=== PATIENT | male | born 1935 | race Caucasian/White ===

== ENCOUNTER 2017-04-13 19:55 | Inpatient (IN) | payer MEDICARE, MEDICAID ==
[~2017-04-13] VITALS: Ht 180.3 cm; Wt 136.0 kg
[~2017-04-13 19:55] MED LIST: ASCO250T8 PO; ATRIN INH; BISA10SU21 PO; BUME1TAB4 PO; CANNABIDIOL PO; DICL100G15 TOP; DOBU500I5; DULR RC; FEBU80TA PO; FLO0.4C PO; FLUT1AER INH; FOLI1TAB16 PO; GABA600T2 PO; LACT10SO PO; LIDO700A5 TOP; METO-539 PO; MORP30TA60 PO; MYC15CR TOP; OSC500T PO; THY60T PO
[2017-04-13 20:59] LABS: BASOPHILS % (AUTO) 0.4 % (0-1); EOSINOPHILS # (AUTO) 0.2 X10'3 (0-0.9); EOSINOPHILS % (AUTO) 2.5 % (0-6); HEMATOCRIT 31.5 % (42.0-52.0); HEMOGLOBIN 10.8 g/dl (14.0-17.9); LYMPHOCYTES # (AUTO) 0.6 X10'3 (1.1-4.8); LYMPHOCYTES % (AUTO) 10.3 % (21-51); MEAN CORPUSCULAR HEMOGLOBIN 32.2 PG (27.0-31.0); MEAN CORPUSCULAR HGB CONC 34.3 % (33.0-36.5); MEAN CORPUSCULAR VOLUME 93.9 FL (78-98); MEAN PLATELET VOLUME 8.9 FL (7.4-10.4); MONOCYTES # (AUTO) 0.4 X10'3 (0-0.9); MONOCYTES % (AUTO) 7.2 % (2-12); NEUTROPHILS # (AUTO) 4.9 X10'3 (1.8-7.7); NEUTROPHILS % (AUTO) 79.6 % (42-75); PLATELET COUNT 128 X10'3 (140-440); RED BLOOD COUNT 3.35 X10'6 (4.70-6.10); RED CELL DISTRIBUTION WIDTH 14.3 % (11.5-14.5); WHITE BLOOD COUNT 6.1 X10'3 (4.5-11.0)
[2017-04-13 21:23] LABS: ALANINE AMINOTRANSFERASE 15 U/L (12-78); ALBUMIN 2.8 G/DL (3.4-5.0); ALBUMIN/GLOBULIN RATIO 0.6 (1.1-1.5); ALKALINE PHOSPHATASE 80 IU/L (46-116); ANION GAP 9 (8-16); ASPARTATE AMINO TRANSFERASE 19 U/L (10-37); BILIRUBIN,TOTAL 0.4 MG/DL (0.1-1.0); BLOOD UREA NITROGEN 53 MG/DL (7-18); BUN/CREATININE RATIO 22.1 (5.4-32.0); CALCIUM 9.1 MG/DL (8.5-10.1); CHLORIDE 97 MMOL/L (99-107); GLUCOSE 112 MG/DL (70-104); MAGNESIUM 2.2 MG/DL (1.5-2.4); SODIUM 134 MMOL/L (135-145); TOTAL CARBON DIOXIDE 27.7 MMOL/L (24-32); TOTAL PROTEIN 7.5 G/DL (6.4-8.2); eGFR 26 ML/MIN
[2017-04-13] MEDS ORDERED: ipratropium 0.5 MG/2.5ML nebule IH ONE (21:55)
[2017-04-13] MEDS ORDERED: morphine 2 MG/ML inj. syringe IV PRN ×2 (22:05)
[2017-04-13] MEDS ORDERED: acetaminophen 650mg rectal suppository RC PRN (22:05)
[2017-04-13] MEDS ORDERED: bisacodyl 10mg suppository rectal RC PRN (22:05)
[2017-04-13] MEDS ORDERED: HYDROmorphone 1 mg/ml syringe IV PRN ×2 (22:05)
[2017-04-13] MEDS ORDERED: magnesium hydroxide 30ml (MOM) UD suspension PO PRN (22:05)
[2017-04-13] MEDS ORDERED: mag hydrox/Alum hydrox/simeth 30ml oral suspension PO PRN (22:05)
[2017-04-13] MEDS ORDERED: HYDROcodone/acetaminophen 5mg/325mg tablet PO PRN (22:05)
[2017-04-13] MEDS ORDERED: diphenhydrAMINE 50 mg/ml inj IV PRN (22:05)
[2017-04-13] MEDS ORDERED: acetaminophen 325mg tablet PO PRN ×2 (22:05)
[2017-04-13] MEDS ORDERED: diphenhydrAMINE 25mg capsule PO PRN (22:05)
[2017-04-13] MEDS ORDERED: metoclopramide 5 mg/ml inj IV PRN (22:05)
[2017-04-13 22:58] LABS: PHOSPHORUS 4.2 MG/DL (2.3-4.5)
[2017-04-13 22:59] LABS: HEMOGLOBIN A1C 5.5 % (4.5-6.2)
[2017-04-14 06:00] LABS: CLARITY,URINE CLEAR (Clear); COLOR,URINE YELLOW (Yellow); GLUCOSE, URINE NEGATIVE (Neg); KETONES,URINE NEGATIVE (Neg); LEUKOCYTE ESTERASE ,URINE MODERATE (Neg); NITRITES, URINE NEGATIVE (Neg); OCCULT BLOOD,URINE MODERATE (Neg); PH,URINE 5.5 (4.8-8.0); PROTEIN,URINE 30 mg/dl (Neg); UROBILINOGEN,URINE 0.2 E.U/dL (0.2-1.0)
[2017-04-14 06:05] LABS: UA COLLECTION TYPE FOLEY CATH
[2017-04-14 06:06] LABS: BACTERIA,URINE 4+ /HPF (Neg); SQUAMOUS EPITHELIAL CELL,UR FEW /LPF (FEW); WBC,URINE 50-100 /HPF (0-4)
[2017-04-14 06:58] LABS: BASOPHILS % (AUTO) 0.6 % (0-1); EOSINOPHILS # (AUTO) 0.1 X10'3 (0-0.9); EOSINOPHILS % (AUTO) 3.5 % (0-6); HEMATOCRIT 28.4 % (42.0-52.0); HEMOGLOBIN 9.9 g/dl (14.0-17.9); LYMPHOCYTES # (AUTO) 0.6 X10'3 (1.1-4.8); LYMPHOCYTES % (AUTO) 15.9 % (21-51); MEAN CORPUSCULAR HEMOGLOBIN 32.3 PG (27.0-31.0); MEAN CORPUSCULAR VOLUME 92.4 FL (78-98); MEAN PLATELET VOLUME 7.9 FL (7.4-10.4); MONOCYTES # (AUTO) 0.4 X10'3 (0-0.9); MONOCYTES % (AUTO) 10.4 % (2-12); NEUTROPHILS # (AUTO) 2.7 X10'3 (1.8-7.7); NEUTROPHILS % (AUTO) 69.6 % (42-75); PLATELET COUNT 104 X10'3 (140-440); RED BLOOD COUNT 3.07 X10'6 (4.70-6.10); RED CELL DISTRIBUTION WIDTH 14.5 % (11.5-14.5); WHITE BLOOD COUNT 3.9 X10'3 (4.5-11.0)
[2017-04-14] MEDS: levoFLOXACIN-Levaquin 250mg/D5 50 ML IV SCH (07:26)
[2017-04-14 07:32] LABS: ALANINE AMINOTRANSFERASE 14 U/L (12-78); ALBUMIN 2.4 G/DL (3.4-5.0); ALBUMIN/GLOBULIN RATIO 0.6 (1.1-1.5); ALKALINE PHOSPHATASE 71 IU/L (46-116); ANION GAP 7 (8-16); ASPARTATE AMINO TRANSFERASE 20 U/L (10-37); BILIRUBIN,TOTAL 0.4 MG/DL (0.1-1.0); BLOOD UREA NITROGEN 52 MG/DL (7-18); BUN/CREATININE RATIO 22.6 (5.4-32.0); CALCIUM 8.8 MG/DL (8.5-10.1); CHLORIDE 99 MMOL/L (99-107); CHOL/HDL RATIO 2.2 (0.00-4.99); CHOLESTEROL 76 MG/DL (0-200); GLUCOSE 96 MG/DL (70-104); HDL CHOLESTEROL 34 MG/DL (35-60); LDL CHOLESTEROL 48 MG/DL (50-100); POTASSIUM 4.1 MMOL/L (3.5-5.1); SODIUM 135 MMOL/L (135-145); TOTAL CARBON DIOXIDE 29.4 MMOL/L (24-32); TOTAL PROTEIN 6.6 G/DL (6.4-8.2); TRIGLYCERIDES 20 MG/DL (20-135); eGFR 27 ML/MIN
[2017-04-14] MEDS ORDERED: enoxaparin 30mg/0.3ml syringe SQ SCH (08:00)
[2017-04-14] MEDS ORDERED: gabapentin 300mg capsule PO SCH (08:00)
[2017-04-14] MEDS ORDERED: bumetanide 1mg tablet PO SCH (08:00)
[2017-04-14] MEDS: enoxaparin 30mg/0.3ml syringe SUBCUT SCH (08:00)
[2017-04-14 09:00] VITALS: BP 95/74
[2017-04-14] MEDS ORDERED: bisacodyl 10mg suppository rectal RC PRN (09:35)
[2017-04-14] MEDS ORDERED: BUMETANIDE IV SCH (10:00)
[2017-04-14 11:00] VITALS: BP 99/66
[2017-04-14] MEDS ORDERED: morphine ER 30mg tablet PO ONE (11:25)
[2017-04-14] MEDS: bumetanide 1mg tablet PO SCH (11:30)
[2017-04-14] MEDS: thyroid, pork 30mg tablet PO SCH (11:32)
[2017-04-14] MEDS: tamsulosin 0.4mg capsule PO SCH (11:33)
[2017-04-14] MEDS: docusate sod 100mg capsule PO SCH ×2 (11:33→20:06)
[2017-04-14] MEDS ORDERED: ipratropium 0.5 MG/2.5ML nebule IH PRN (12:30)
[2017-04-14 17:00] VITALS: BP 93/65
[2017-04-14] MEDS: FEBUXOSTAT PO SCH ×2 (17:41→17:42)
[2017-04-14] MEDS: lactobacillus rhamnosus 10,000 MMU CELLS/CAPSULE PO SCH (18:11)
[2017-04-14 19:00] VITALS: BP 93/67
[2017-04-14] MEDS: DICLOFENAC SODIUM 4 GM TOP SCH (20:00)
[2017-04-14] MEDS ORDERED: furosemide 20 MG/2 ML vial IV SCH (20:00)
[2017-04-14] MEDS: furosemide 40mg/4ml inj IV SCH (20:00)
[2017-04-14] MEDS: morphine ER 30mg tablet PO SCH (20:07)
[2017-04-14] MEDS: gabapentin 100mg capsule PO SCH (20:07)
[2017-04-14] MEDS: lactulose 20gm/30ml cup PO SCH (20:07)
[2017-04-14] MEDS: ondansetron/PF 4mg/2ml inj IV PRN (20:16)
[2017-04-14] MEDS ORDERED: tamsulosin 0.4mg capsule PO SCH (21:00)
[2017-04-14 23:00] VITALS: BP 94/65
[2017-04-15 03:00] VITALS: BP 92/68
[2017-04-15] MEDS: sennosides/docusate sodium tablet PO SCH ×3 (03:34→20:45)
[2017-04-15] MEDS: ondansetron/PF 4mg/2ml inj IV PRN ×2 (04:06→19:37)
[2017-04-15 06:00] VITALS: BP 98/66
[2017-04-15 07:10] LABS: BASOPHILS % (AUTO) 0.6 % (0-1); EOSINOPHILS # (AUTO) 0.1 X10'3 (0-0.9); EOSINOPHILS % (AUTO) 3.2 % (0-6); HEMATOCRIT 31.5 % (42.0-52.0); HEMOGLOBIN 10.8 g/dl (14.0-17.9); LYMPHOCYTES # (AUTO) 0.7 X10'3 (1.1-4.8); LYMPHOCYTES % (AUTO) 16.7 % (21-51); MEAN CORPUSCULAR HEMOGLOBIN 32.2 PG (27.0-31.0); MEAN CORPUSCULAR HGB CONC 34.3 % (33.0-36.5); MEAN PLATELET VOLUME 8.9 FL (7.4-10.4); MONOCYTES # (AUTO) 0.3 X10'3 (0-0.9); MONOCYTES % (AUTO) 8.1 % (2-12); NEUTROPHILS # (AUTO) 2.9 X10'3 (1.8-7.7); NEUTROPHILS % (AUTO) 71.4 % (42-75); PLATELET COUNT 126 X10'3 (140-440); RED BLOOD COUNT 3.35 X10'6 (4.70-6.10); RED CELL DISTRIBUTION WIDTH 14.4 % (11.5-14.5); WHITE BLOOD COUNT 4.1 X10'3 (4.5-11.0)
[2017-04-15 07:44] LABS: ALANINE AMINOTRANSFERASE 15 U/L (12-78); ALBUMIN 2.6 G/DL (3.4-5.0); ALBUMIN/GLOBULIN RATIO 0.6 (1.1-1.5); ALKALINE PHOSPHATASE 77 IU/L (46-116); ANION GAP 8 (8-16); ASPARTATE AMINO TRANSFERASE 19 U/L (10-37); BILIRUBIN,TOTAL 0.5 MG/DL (0.1-1.0); BLOOD UREA NITROGEN 51 MG/DL (7-18); BUN/CREATININE RATIO 23.2 (5.4-32.0); CALCIUM 8.7 MG/DL (8.5-10.1); CHLORIDE 97 MMOL/L (99-107); GLUCOSE 82 MG/DL (70-104); SODIUM 135 MMOL/L (135-145); TOTAL CARBON DIOXIDE 29.7 MMOL/L (24-32); TOTAL PROTEIN 7.3 G/DL (6.4-8.2); eGFR 29 ML/MIN
[2017-04-15] MEDS ORDERED: folic acid 1mg tablet PO SCH (08:00)
[2017-04-15] MEDS: DICLOFENAC SODIUM 4 GM TOP SCH ×2 (08:00→20:00)
[2017-04-15] MEDS: enoxaparin 30mg/0.3ml syringe SUBCUT SCH (08:00)
[2017-04-15] MEDS: neomy sulf/bacitrac zn/polymixin b oint 14.2 gm tube TP SCH (08:00)
[2017-04-15] MEDS: LIDOcaine 5% patch TP SCH (08:00)
[2017-04-15] MEDS: FEBUXOSTAT PO SCH (08:00)
[2017-04-15] MEDS: lactobacillus rhamnosus 10,000 MMU CELLS/CAPSULE PO SCH ×2 (08:41→17:21)
[2017-04-15] MEDS: tamsulosin 0.4mg capsule PO SCH (08:41)
[2017-04-15] MEDS: docusate sod 100mg capsule PO SCH ×2 (08:41→20:45)
[2017-04-15] MEDS: morphine ER 30mg tablet PO SCH ×3 (08:42→20:45)
[2017-04-15] MEDS: metoprolol succinate 25mg (24-HOUR) SR. Tablet PO SCH (08:42)
[2017-04-15] MEDS: ascorbic acid 500mg tablet PO SCH (08:44)
[2017-04-15] MEDS: gabapentin 100mg capsule PO SCH ×3 (08:44→20:45)
[2017-04-15] MEDS: folic acid 1mg tablet PO SCH (08:44)
[2017-04-15] MEDS: thyroid, pork 30mg tablet PO SCH (08:46)
[2017-04-15] MEDS: lactulose 20gm/30ml cup PO SCH ×2 (08:47→20:45)
[2017-04-15] MEDS: furosemide 40mg/4ml inj IV SCH ×2 (08:48→20:45)
[2017-04-15] MEDS: levoFLOXACIN-Levaquin 250mg/D5 50 ML IV SCH (08:57)
[2017-04-15] MEDS: nystatin 15 GM powder TP SCH ×2 (09:00→20:44)
[2017-04-15] MEDS ORDERED: bisacodyl 10mg suppository rectal RC ONE (10:30)
[2017-04-15 11:00] VITALS: BP 91/53
[2017-04-15] MEDS: HYDROcodone/acetaminophen 10/325mg tab PO PRN (11:08)
[2017-04-15 15:00] VITALS: BP 97/54
[2017-04-15] MEDS ORDERED: mineral oil 133ml enema RC PRN (18:20)
[2017-04-15 19:00] VITALS: BP 104/75
[2017-04-15 23:00] VITALS: BP 96/64
[2017-04-16] VITALS (7 sets, daily range): BP systolic 83–97; BP diastolic 39–66
[2017-04-16] MEDS: HYDROcodone/acetaminophen 10/325mg tab PO PRN (05:18)
[2017-04-16 06:19] LABS: BASOPHILS % (AUTO) 0.6 % (0-1); EOSINOPHILS # (AUTO) 0.1 X10'3 (0-0.9); EOSINOPHILS % (AUTO) 3.2 % (0-6); HEMATOCRIT 30.8 % (42.0-52.0); HEMOGLOBIN 10.8 g/dl (14.0-17.9); LYMPHOCYTES # (AUTO) 0.7 X10'3 (1.1-4.8); LYMPHOCYTES % (AUTO) 16.5 % (21-51); MEAN CORPUSCULAR HEMOGLOBIN 32.4 PG (27.0-31.0); MEAN CORPUSCULAR VOLUME 92.7 FL (78-98); MEAN PLATELET VOLUME 8.5 FL (7.4-10.4); MONOCYTES # (AUTO) 0.4 X10'3 (0-0.9); NEUTROPHILS % (AUTO) 70.7 % (42-75); PLATELET COUNT 123 X10'3 (140-440); RED BLOOD COUNT 3.33 X10'6 (4.70-6.10); RED CELL DISTRIBUTION WIDTH 14.4 % (11.5-14.5); WHITE BLOOD COUNT 4.2 X10'3 (4.5-11.0)
[2017-04-16 06:54] LABS: ALANINE AMINOTRANSFERASE 15 U/L (12-78); ALBUMIN 2.6 G/DL (3.4-5.0); ALBUMIN/GLOBULIN RATIO 0.6 (1.1-1.5); ALKALINE PHOSPHATASE 78 IU/L (46-116); ANION GAP 7 (8-16); ASPARTATE AMINO TRANSFERASE 18 U/L (10-37); BILIRUBIN,TOTAL 0.5 MG/DL (0.1-1.0); BLOOD UREA NITROGEN 50 MG/DL (7-18); BUN/CREATININE RATIO 20.8 (5.4-32.0); CALCIUM 8.8 MG/DL (8.5-10.1); CHLORIDE 97 MMOL/L (99-107); GLUCOSE 86 MG/DL (70-104); POTASSIUM 3.8 MMOL/L (3.5-5.1); SODIUM 132 MMOL/L (135-145); TOTAL CARBON DIOXIDE 28.1 MMOL/L (24-32); TOTAL PROTEIN 7.1 G/DL (6.4-8.2); eGFR 26 ML/MIN
[2017-04-16] MEDS: gabapentin 100mg capsule PO SCH ×3 (07:58→21:07)
[2017-04-16] MEDS: thyroid, pork 30mg tablet PO SCH (07:58)
[2017-04-16] MEDS: metoprolol succinate 25mg (24-HOUR) SR. Tablet PO SCH (07:59)
[2017-04-16] MEDS: bumetanide 1mg tablet PO SCH (07:59)
[2017-04-16] MEDS: DICLOFENAC SODIUM 4 GM TOP SCH (08:00)
[2017-04-16] MEDS: folic acid 1mg tablet PO SCH (08:00)
[2017-04-16] MEDS: ascorbic acid 500mg tablet PO SCH (08:00)
[2017-04-16] MEDS: morphine ER 30mg tablet PO SCH ×3 (08:00→21:07)
[2017-04-16] MEDS: sennosides/docusate sodium tablet PO SCH ×2 (08:00→19:26)
[2017-04-16] MEDS: furosemide 40mg/4ml inj IV SCH ×2 (08:00→19:26)
[2017-04-16] MEDS: enoxaparin 30mg/0.3ml syringe SUBCUT SCH ×2 (08:00→08:01)
[2017-04-16] MEDS: docusate sod 100mg capsule PO SCH ×2 (08:00→19:26)
[2017-04-16] MEDS: tamsulosin 0.4mg capsule PO SCH (08:00)
[2017-04-16] MEDS: lactulose 20gm/30ml cup PO SCH ×2 (08:00→19:27)
[2017-04-16] MEDS: nystatin 15 GM powder TP SCH ×2 (08:00→19:26)
[2017-04-16] MEDS: lactobacillus rhamnosus 10,000 MMU CELLS/CAPSULE PO SCH ×2 (08:00→17:18)
[2017-04-16] MEDS: neomy sulf/bacitrac zn/polymixin b oint 14.2 gm tube TP SCH (08:01)
[2017-04-16] MEDS: LIDOcaine 5% patch TP SCH (08:03)
[2017-04-16] MEDS: FEBUXOSTAT PO SCH (11:16)
[2017-04-16] MEDS: levoFLOXACIN 250mg tablet PO SCH (11:16)
[2017-04-16] MEDS: DOBUTamine-DoBUTrex 500mg/D5W 250 ML IV SCH (16:30)
[2017-04-16] MEDS: ZINC TP PRN (17:18)
[2017-04-16] MEDS: DIPHENHYDRAMINE TP PRN (17:18)
[2017-04-16] MEDS: oxybutynin 5mg tablet PO SCH ×2 (17:18→19:26)
[2017-04-16] MEDS ORDERED: meropenem inj 1 GM in normal saline 100ml IV soln 100 ML IV SCH (20:00)
[2017-04-17] VITALS (12 sets, daily range): BP systolic 81–107; BP diastolic 54–67
[2017-04-17] MEDS: HYDROcodone/acetaminophen 10/325mg tab PO PRN (02:21)
[2017-04-17 06:13] LABS: BASOPHILS % (AUTO) 0.4 % (0-1); EOSINOPHILS # (AUTO) 0.1 X10'3 (0-0.9); EOSINOPHILS % (AUTO) 3.2 % (0-6); HEMOGLOBIN 10.4 g/dl (14.0-17.9); LYMPHOCYTES # (AUTO) 0.6 X10'3 (1.1-4.8); LYMPHOCYTES % (AUTO) 16.3 % (21-51); MEAN CORPUSCULAR HEMOGLOBIN 32.1 PG (27.0-31.0); MEAN CORPUSCULAR HGB CONC 34.5 % (33.0-36.5); MEAN CORPUSCULAR VOLUME 93.2 FL (78-98); MEAN PLATELET VOLUME 8.7 FL (7.4-10.4); MONOCYTES # (AUTO) 0.3 X10'3 (0-0.9); MONOCYTES % (AUTO) 9.1 % (2-12); NEUTROPHILS # (AUTO) 2.6 X10'3 (1.8-7.7); PLATELET COUNT 110 X10'3 (140-440); RED BLOOD COUNT 3.22 X10'6 (4.70-6.10); RED CELL DISTRIBUTION WIDTH 14.3 % (11.5-14.5); WHITE BLOOD COUNT 3.7 X10'3 (4.5-11.0)
[2017-04-17 06:50] LABS: ALANINE AMINOTRANSFERASE 15 U/L (12-78); ALBUMIN 2.3 G/DL (3.4-5.0); ALBUMIN/GLOBULIN RATIO 0.5 (1.1-1.5); ALKALINE PHOSPHATASE 69 IU/L (46-116); ANION GAP 4 (8-16); ASPARTATE AMINO TRANSFERASE 18 U/L (10-37); BILIRUBIN,TOTAL 0.5 MG/DL (0.1-1.0); BLOOD UREA NITROGEN 49 MG/DL (7-18); BUN/CREATININE RATIO 21.3 (5.4-32.0); CALCIUM 8.7 MG/DL (8.5-10.1); CHLORIDE 99 MMOL/L (99-107); GLUCOSE 86 MG/DL (70-104); SODIUM 132 MMOL/L (135-145); TOTAL PROTEIN 6.5 G/DL (6.4-8.2); eGFR 27 ML/MIN
[2017-04-17] MEDS: neomy sulf/bacitrac zn/polymixin b oint 14.2 gm tube TP SCH (08:00)
[2017-04-17] MEDS: furosemide 40mg/4ml inj IV SCH ×2 (08:00→21:27)
[2017-04-17] MEDS: metoprolol succinate 25mg (24-HOUR) SR. Tablet PO SCH (08:00)
[2017-04-17] MEDS: LIDOcaine 5% patch TP SCH (08:00)
[2017-04-17] MEDS: bumetanide 1mg tablet PO SCH (08:00)
[2017-04-17] MEDS: enoxaparin 30mg/0.3ml syringe SUBCUT SCH (08:00)
[2017-04-17] MEDS: cyanocobalamin 500mcg tablet PO SCH (09:03)
[2017-04-17] MEDS: docusate sod 100mg capsule PO SCH ×2 (09:04→21:27)
[2017-04-17] MEDS: folic acid 1mg tablet PO SCH (09:04)
[2017-04-17] MEDS: FEBUXOSTAT PO SCH (09:04)
[2017-04-17] MEDS: gabapentin 100mg capsule PO SCH ×3 (09:04→21:28)
[2017-04-17] MEDS: lactobacillus rhamnosus 10,000 MMU CELLS/CAPSULE PO SCH ×2 (09:04→17:04)
[2017-04-17] MEDS: sennosides/docusate sodium tablet PO SCH ×2 (09:04→21:27)
[2017-04-17] MEDS: thyroid, pork 30mg tablet PO SCH (09:05)
[2017-04-17] MEDS: morphine ER 30mg tablet PO SCH ×3 (09:05→21:28)
[2017-04-17] MEDS: oxybutynin 5mg tablet PO SCH ×2 (09:06→21:27)
[2017-04-17] MEDS: ascorbic acid 500mg tablet PO SCH (09:06)
[2017-04-17] MEDS: tamsulosin 0.4mg capsule PO SCH (09:06)
[2017-04-17] MEDS: lactulose 20gm/30ml cup PO SCH ×2 (09:10→21:27)
[2017-04-17] MEDS: nystatin 15 GM powder TP SCH ×2 (09:12→20:00)
[2017-04-17] MEDS: levoFLOXACIN 250mg tablet PO SCH (11:18)
[2017-04-17] MEDS: DOBUTamine-DoBUTrex 500mg/D5W 250 ML IV SCH ×2 (14:46→16:06)
[2017-04-17] MEDS: aztreonam inj. 500 MG in normal saline 100ml IV soln 100 ML IV SCH (15:04)
[2017-04-17] MEDS ORDERED: aztreonam inj. 1,000 MG in normal saline 100ml IV soln 100 ML IV SCH (16:00)
[2017-04-18] VITALS (11 sets, daily range): BP systolic 85–107; BP diastolic 40–55
[2017-04-18 06:16] LABS: BASOPHILS % (AUTO) 0.4 % (0-1); EOSINOPHILS # (AUTO) 0.1 X10'3 (0-0.9); EOSINOPHILS % (AUTO) 2.5 % (0-6); HEMOGLOBIN 10.1 g/dl (14.0-17.9); LYMPHOCYTES # (AUTO) 0.5 X10'3 (1.1-4.8); LYMPHOCYTES % (AUTO) 14.3 % (21-51); MEAN CORPUSCULAR HEMOGLOBIN 32.1 PG (27.0-31.0); MEAN CORPUSCULAR HGB CONC 33.7 % (33.0-36.5); MEAN CORPUSCULAR VOLUME 95.3 FL (78-98); MEAN PLATELET VOLUME 8.4 FL (7.4-10.4); MONOCYTES # (AUTO) 0.2 X10'3 (0-0.9); MONOCYTES % (AUTO) 6.6 % (2-12); NEUTROPHILS # (AUTO) 2.8 X10'3 (1.8-7.7); NEUTROPHILS % (AUTO) 76.2 % (42-75); PLATELET COUNT 101 X10'3 (140-440); RED BLOOD COUNT 3.15 X10'6 (4.70-6.10); WHITE BLOOD COUNT 3.6 X10'3 (4.5-11.0)
[2017-04-18 06:47] LABS: ALANINE AMINOTRANSFERASE 9 U/L (12-78); ALBUMIN 2.3 G/DL (3.4-5.0); ALBUMIN/GLOBULIN RATIO 0.5 (1.1-1.5); ALKALINE PHOSPHATASE 77 IU/L (46-116); ANION GAP 7 (8-16); ASPARTATE AMINO TRANSFERASE 14 U/L (10-37); BILIRUBIN,TOTAL 0.7 MG/DL (0.1-1.0); BLOOD UREA NITROGEN 47 MG/DL (7-18); BUN/CREATININE RATIO 22.4 (5.4-32.0); CALCIUM 8.7 MG/DL (8.5-10.1); CHLORIDE 97 MMOL/L (99-107); GLUCOSE 149 MG/DL (70-104); SODIUM 132 MMOL/L (135-145); TOTAL PROTEIN 6.6 G/DL (6.4-8.2); eGFR 30 ML/MIN
[2017-04-18] MEDS: LIDOcaine 5% patch TP SCH (08:00)
[2017-04-18] MEDS: metoprolol succinate 25mg (24-HOUR) SR. Tablet PO SCH (08:00)
[2017-04-18] MEDS: neomy sulf/bacitrac zn/polymixin b oint 14.2 gm tube TP SCH (08:00)
[2017-04-18] MEDS: bumetanide 1mg tablet PO SCH (08:00)
[2017-04-18] MEDS: enoxaparin 30mg/0.3ml syringe SUBCUT SCH (08:00)
[2017-04-18] MEDS: furosemide 40mg/4ml inj IV SCH ×2 (08:00→19:54)
[2017-04-18] MEDS: cyanocobalamin 500mcg tablet PO SCH (08:22)
[2017-04-18] MEDS: thyroid, pork 30mg tablet PO SCH (08:23)
[2017-04-18] MEDS: tamsulosin 0.4mg capsule PO SCH (08:23)
[2017-04-18] MEDS: gabapentin 100mg capsule PO SCH ×3 (08:23→21:48)
[2017-04-18] MEDS: oxybutynin 5mg tablet PO SCH ×2 (08:23→19:53)
[2017-04-18] MEDS: morphine ER 30mg tablet PO SCH ×3 (08:23→19:52)
[2017-04-18] MEDS: docusate sod 100mg capsule PO SCH ×2 (08:24→19:53)
[2017-04-18] MEDS: lactobacillus rhamnosus 10,000 MMU CELLS/CAPSULE PO SCH ×2 (08:24→16:36)
[2017-04-18] MEDS: levoFLOXACIN 750MG TABLET PO SCH (08:24)
[2017-04-18] MEDS: sennosides/docusate sodium tablet PO SCH ×2 (08:24→19:53)
[2017-04-18] MEDS: folic acid 1mg tablet PO SCH (08:24)
[2017-04-18] MEDS: ascorbic acid 500mg tablet PO SCH (08:25)
[2017-04-18] MEDS: FEBUXOSTAT PO SCH (08:25)
[2017-04-18] MEDS: DOBUTamine-DoBUTrex 500mg/D5W 250 ML IV SCH ×2 (08:27→21:50)
[2017-04-18] MEDS: lactulose 20gm/30ml cup PO SCH ×2 (08:27→19:54)
[2017-04-18] MEDS: nystatin 15 GM powder TP SCH ×2 (08:28→20:00)
[2017-04-18] MEDS: HYDROcodone/acetaminophen 10/325mg tab PO PRN ×2 (09:32→23:31)
[2017-04-18] MEDS: aztreonam inj. 500 MG in normal saline 100ml IV soln 100 ML IV SCH ×5 (10:36→23:04)
[2017-04-18] MEDS: DIPHENHYDRAMINE TP PRN (10:38)
[2017-04-18] MEDS: ZINC TP PRN (10:38)
[2017-04-18] MEDS ORDERED: HYDROmorphone 2mg/ml vial IV PRN ×2 (15:59)
[2017-04-18] MEDS: nystatin 500,000 unit/5ML UD oral suspension PO SCH ×2 (19:54→21:48)
[2017-04-19] VITALS (14 sets, daily range): BP systolic 87–117; BP diastolic 39–67
[2017-04-19] MEDS: DOBUTamine-DoBUTrex 500mg/D5W 250 ML IV SCH ×2 (00:35→10:54)
[2017-04-19] MEDS: HYDROcodone/acetaminophen 10/325mg tab PO PRN ×2 (04:31→21:40)
[2017-04-19] MEDS: bumetanide 1mg tablet PO SCH (08:00)
[2017-04-19] MEDS: LIDOcaine 5% patch TP SCH (08:00)
[2017-04-19] MEDS: metoprolol succinate 25mg (24-HOUR) SR. Tablet PO SCH (08:00)
[2017-04-19] MEDS: furosemide 40mg/4ml inj IV SCH ×2 (08:00→21:41)
[2017-04-19] MEDS: enoxaparin 30mg/0.3ml syringe SUBCUT SCH (08:00)
[2017-04-19] MEDS: thyroid, pork 30mg tablet PO SCH (08:18)
[2017-04-19] MEDS: docusate sod 100mg capsule PO SCH ×2 (08:18→21:39)
[2017-04-19] MEDS: lactulose 20gm/30ml cup PO SCH ×2 (08:18→21:40)
[2017-04-19] MEDS: folic acid 1mg tablet PO SCH (08:18)
[2017-04-19] MEDS: cyanocobalamin 500mcg tablet PO SCH (08:18)
[2017-04-19] MEDS: sennosides/docusate sodium tablet PO SCH ×2 (08:19→21:39)
[2017-04-19] MEDS: oxybutynin 5mg tablet PO SCH ×2 (08:19→21:39)
[2017-04-19] MEDS: tamsulosin 0.4mg capsule PO SCH (08:19)
[2017-04-19] MEDS: morphine ER 30mg tablet PO SCH ×3 (08:19→21:40)
[2017-04-19] MEDS: gabapentin 100mg capsule PO SCH ×3 (08:19→21:40)
[2017-04-19] MEDS: lactobacillus rhamnosus 10,000 MMU CELLS/CAPSULE PO SCH ×2 (08:19→16:34)
[2017-04-19] MEDS: FEBUXOSTAT PO SCH (08:20)
[2017-04-19] MEDS: ascorbic acid 500mg tablet PO SCH (08:20)
[2017-04-19] MEDS: nystatin 500,000 unit/5ML UD oral suspension PO SCH ×3 (08:21→21:39)
[2017-04-19] MEDS: aztreonam inj. 500 MG in normal saline 100ml IV soln 100 ML IV SCH ×2 (08:21→16:34)
[2017-04-19] MEDS: nystatin 15 GM powder TP SCH ×2 (08:22→21:42)
[2017-04-19] MEDS: neomy sulf/bacitrac zn/polymixin b oint 14.2 gm tube TP SCH (08:22)
[2017-04-19 08:59] LABS: BASOPHILS % (AUTO) 0.4 % (0-1); EOSINOPHILS # (AUTO) 0.1 X10'3 (0-0.9); EOSINOPHILS % (AUTO) 2.8 % (0-6); HEMATOCRIT 29.1 % (42.0-52.0); HEMOGLOBIN 9.8 g/dl (14.0-17.9); LYMPHOCYTES # (AUTO) 0.4 X10'3 (1.1-4.8); LYMPHOCYTES % (AUTO) 10.9 % (21-51); MEAN CORPUSCULAR HEMOGLOBIN 31.8 PG (27.0-31.0); MEAN CORPUSCULAR HGB CONC 33.7 % (33.0-36.5); MEAN CORPUSCULAR VOLUME 94.4 FL (78-98); MEAN PLATELET VOLUME 8.1 FL (7.4-10.4); MONOCYTES # (AUTO) 0.3 X10'3 (0-0.9); MONOCYTES % (AUTO) 6.9 % (2-12); NEUTROPHILS # (AUTO) 3.1 X10'3 (1.8-7.7); PLATELET COUNT 100 X10'3 (140-440); RED BLOOD COUNT 3.08 X10'6 (4.70-6.10); RED CELL DISTRIBUTION WIDTH 14.1 % (11.5-14.5); WHITE BLOOD COUNT 3.9 X10'3 (4.5-11.0)
[2017-04-19 09:38] LABS: ALANINE AMINOTRANSFERASE 9 U/L (12-78); ALBUMIN 2.3 G/DL (3.4-5.0); ALBUMIN/GLOBULIN RATIO 0.5 (1.1-1.5); ALKALINE PHOSPHATASE 76 IU/L (46-116); ANION GAP 7 (8-16); ASPARTATE AMINO TRANSFERASE 22 U/L (10-37); BILIRUBIN,TOTAL 0.7 MG/DL (0.1-1.0); BLOOD UREA NITROGEN 42 MG/DL (7-18); CALCIUM 8.8 MG/DL (8.5-10.1); CHLORIDE 99 MMOL/L (99-107); GLUCOSE 112 MG/DL (70-104); POTASSIUM 4.2 MMOL/L (3.5-5.1); SODIUM 135 MMOL/L (135-145); TOTAL CARBON DIOXIDE 28.6 MMOL/L (24-32); TOTAL PROTEIN 6.6 G/DL (6.4-8.2); eGFR 32 ML/MIN
[2017-04-19] MEDS: temazepam 15mg capsule PO PRN (21:41)
[2017-04-20] VITALS (11 sets, daily range): BP systolic 90–111; BP diastolic 49–85
[2017-04-20] MEDS: DOBUTamine-DoBUTrex 500mg/D5W 250 ML IV SCH ×3 (00:40→12:30)
[2017-04-20] MEDS: aztreonam inj. 500 MG in normal saline 100ml IV soln 100 ML IV SCH ×3 (00:40→16:53)
[2017-04-20 04:56] LABS: BASOPHILS % (AUTO) 0.4 % (0-1); EOSINOPHILS # (AUTO) 0.1 X10'3 (0-0.9); HEMOGLOBIN 9.6 g/dl (14.0-17.9); LYMPHOCYTES # (AUTO) 0.5 X10'3 (1.1-4.8); LYMPHOCYTES % (AUTO) 15.5 % (21-51); MEAN CORPUSCULAR HGB CONC 34.1 % (33.0-36.5); MEAN CORPUSCULAR VOLUME 93.8 FL (78-98); MEAN PLATELET VOLUME 8.3 FL (7.4-10.4); MONOCYTES # (AUTO) 0.3 X10'3 (0-0.9); MONOCYTES % (AUTO) 8.8 % (2-12); NEUTROPHILS # (AUTO) 2.3 X10'3 (1.8-7.7); NEUTROPHILS % (AUTO) 71.3 % (42-75); PLATELET COUNT 99 X10'3 (140-440); RED BLOOD COUNT 2.99 X10'6 (4.70-6.10); RED CELL DISTRIBUTION WIDTH 14.3 % (11.5-14.5); WHITE BLOOD COUNT 3.3 X10'3 (4.5-11.0)
[2017-04-20 05:15] LABS: ALANINE AMINOTRANSFERASE 13 U/L (12-78); ALBUMIN 2.3 G/DL (3.4-5.0); ALBUMIN/GLOBULIN RATIO 0.6 (1.1-1.5); ALKALINE PHOSPHATASE 72 IU/L (46-116); ANION GAP 8 (8-16); ASPARTATE AMINO TRANSFERASE 21 U/L (10-37); BILIRUBIN,TOTAL 0.7 MG/DL (0.1-1.0); BLOOD UREA NITROGEN 41 MG/DL (7-18); BUN/CREATININE RATIO 20.5 (5.4-32.0); CALCIUM 8.7 MG/DL (8.5-10.1); CHLORIDE 100 MMOL/L (99-107); GLUCOSE 80 MG/DL (70-104); SODIUM 137 MMOL/L (135-145); TOTAL CARBON DIOXIDE 28.9 MMOL/L (24-32); TOTAL PROTEIN 6.4 G/DL (6.4-8.2); eGFR 32 ML/MIN
[2017-04-20] MEDS: LIDOcaine 5% patch TP SCH (08:00)
[2017-04-20] MEDS: enoxaparin 30mg/0.3ml syringe SUBCUT SCH (08:00)
[2017-04-20] MEDS ORDERED: methylnaltrexone br 12mg/0.6ml inj***SubQ only SQ SCH (08:00)
[2017-04-20] MEDS: cyanocobalamin 500mcg tablet PO SCH (08:49)
[2017-04-20] MEDS: bumetanide 1mg tablet PO SCH (08:49)
[2017-04-20] MEDS: tamsulosin 0.4mg capsule PO SCH (08:49)
[2017-04-20] MEDS: gabapentin 100mg capsule PO SCH ×3 (08:50→20:32)
[2017-04-20] MEDS: sennosides/docusate sodium tablet PO SCH ×2 (08:50→20:32)
[2017-04-20] MEDS: oxybutynin 5mg tablet PO SCH ×2 (08:50→20:32)
[2017-04-20] MEDS: furosemide 40mg/4ml inj IV SCH (08:50)
[2017-04-20] MEDS: FEBUXOSTAT PO SCH (08:50)
[2017-04-20] MEDS: docusate sod 100mg capsule PO SCH ×2 (08:50→20:32)
[2017-04-20] MEDS: folic acid 1mg tablet PO SCH (08:50)
[2017-04-20] MEDS: metoprolol succinate 25mg (24-HOUR) SR. Tablet PO SCH (08:50)
[2017-04-20] MEDS: lactobacillus rhamnosus 10,000 MMU CELLS/CAPSULE PO SCH ×2 (08:51→16:52)
[2017-04-20] MEDS: morphine ER 30mg tablet PO SCH ×3 (08:51→20:32)
[2017-04-20] MEDS: ascorbic acid 500mg tablet PO SCH (08:51)
[2017-04-20] MEDS: lactulose 20gm/30ml cup PO SCH ×2 (08:51→20:31)
[2017-04-20] MEDS: thyroid, pork 30mg tablet PO SCH (08:53)
[2017-04-20] MEDS: levoFLOXACIN 750MG TABLET PO SCH (08:54)
[2017-04-20] MEDS: nystatin 15 GM powder TP SCH ×2 (08:55→20:37)
[2017-04-20] MEDS: nystatin 500,000 unit/5ML UD oral suspension PO SCH ×3 (08:57→20:32)
[2017-04-20] MEDS: neomy sulf/bacitrac zn/polymixin b oint 14.2 gm tube TP SCH (08:58)
[2017-04-20] MEDS: lisinopril 2.5mg tablet PO SCH (16:51)
[2017-04-20] MEDS: furosemide 20 MG/2 ML vial IV SCH (16:52)
[2017-04-20] MEDS: digoxin 125mcg (0.125mg) tablet PO SCH (16:53)
[2017-04-21] VITALS (11 sets, daily range): BP systolic 85–105; BP diastolic 37–63
[2017-04-21] MEDS: temazepam 15mg capsule PO PRN (00:27)
[2017-04-21] MEDS: furosemide 20 MG/2 ML vial IV SCH ×3 (00:27→20:00)
[2017-04-21] MEDS: aztreonam inj. 500 MG in normal saline 100ml IV soln 100 ML IV SCH ×3 (00:27→17:05)
[2017-04-21 04:45] LABS: BASOPHILS % (AUTO) 0.3 % (0-1); EOSINOPHILS # (AUTO) 0.2 X10'3 (0-0.9); EOSINOPHILS % (AUTO) 5.2 % (0-6); HEMATOCRIT 28.9 % (42.0-52.0); HEMOGLOBIN 9.7 g/dl (14.0-17.9); LYMPHOCYTES # (AUTO) 0.5 X10'3 (1.1-4.8); LYMPHOCYTES % (AUTO) 15.7 % (21-51); MEAN CORPUSCULAR HEMOGLOBIN 31.7 PG (27.0-31.0); MEAN CORPUSCULAR HGB CONC 33.5 % (33.0-36.5); MEAN CORPUSCULAR VOLUME 94.6 FL (78-98); MEAN PLATELET VOLUME 7.8 FL (7.4-10.4); MONOCYTES # (AUTO) 0.3 X10'3 (0-0.9); MONOCYTES % (AUTO) 9.2 % (2-12); NEUTROPHILS # (AUTO) 2.2 X10'3 (1.8-7.7); NEUTROPHILS % (AUTO) 69.6 % (42-75); PLATELET COUNT 100 X10'3 (140-440); RED BLOOD COUNT 3.06 X10'6 (4.70-6.10); RED CELL DISTRIBUTION WIDTH 14.3 % (11.5-14.5); WHITE BLOOD COUNT 3.1 X10'3 (4.5-11.0)
[2017-04-21 05:03] LABS: ALANINE AMINOTRANSFERASE 9 U/L (12-78); ALBUMIN 2.1 G/DL (3.4-5.0); ALBUMIN/GLOBULIN RATIO 0.5 (1.1-1.5); ALKALINE PHOSPHATASE 66 IU/L (46-116); ANION GAP 6 (8-16); ASPARTATE AMINO TRANSFERASE 19 U/L (10-37); BILIRUBIN,TOTAL 0.7 MG/DL (0.1-1.0); BLOOD UREA NITROGEN 36 MG/DL (7-18); CALCIUM 8.6 MG/DL (8.5-10.1); CHLORIDE 102 MMOL/L (99-107); GLUCOSE 82 MG/DL (70-104); POTASSIUM 3.4 MMOL/L (3.5-5.1); SODIUM 138 MMOL/L (135-145); TOTAL CARBON DIOXIDE 30.4 MMOL/L (24-32); TOTAL PROTEIN 6.1 G/DL (6.4-8.2); eGFR 36 ML/MIN
[2017-04-21] MEDS: cyanocobalamin 500mcg tablet PO SCH (08:00)
[2017-04-21] MEDS: bumetanide 1mg tablet PO SCH (08:00)
[2017-04-21] MEDS: neomy sulf/bacitrac zn/polymixin b oint 14.2 gm tube TP SCH (08:00)
[2017-04-21] MEDS: metoprolol succinate 25mg (24-HOUR) SR. Tablet PO SCH ×2 (08:00→20:00)
[2017-04-21] MEDS: lisinopril 2.5mg tablet PO SCH (08:00)
[2017-04-21] MEDS: docusate sod 100mg capsule PO SCH ×2 (08:00→20:49)
[2017-04-21] MEDS: DOBUTamine-DoBUTrex 500mg/D5W 250 ML IV SCH (09:35)
[2017-04-21] MEDS: tamsulosin 0.4mg capsule PO SCH (09:36)
[2017-04-21] MEDS: sennosides/docusate sodium tablet PO SCH ×2 (09:36→20:50)
[2017-04-21] MEDS: ascorbic acid 500mg tablet PO SCH (09:36)
[2017-04-21] MEDS: thyroid, pork 30mg tablet PO SCH (09:37)
[2017-04-21] MEDS: digoxin 125mcg (0.125mg) tablet PO SCH (09:37)
[2017-04-21] MEDS: lactobacillus rhamnosus 10,000 MMU CELLS/CAPSULE PO SCH ×2 (09:37→17:05)
[2017-04-21] MEDS: morphine ER 30mg tablet PO SCH ×3 (09:37→20:50)
[2017-04-21] MEDS: oxybutynin 5mg tablet PO SCH ×2 (09:37→20:50)
[2017-04-21] MEDS: FEBUXOSTAT PO SCH (09:38)
[2017-04-21] MEDS: enoxaparin 30mg/0.3ml syringe SUBCUT SCH (09:38)
[2017-04-21] MEDS: lactulose 20gm/30ml cup PO SCH ×2 (09:38→20:49)
[2017-04-21] MEDS: gabapentin 100mg capsule PO SCH ×3 (09:38→20:49)
[2017-04-21] MEDS: nystatin 500,000 unit/5ML UD oral suspension PO SCH ×3 (09:38→20:49)
[2017-04-21] MEDS: folic acid 1mg tablet PO SCH (09:38)
[2017-04-21] MEDS: LIDOcaine 5% patch TP SCH (09:39)
[2017-04-21] MEDS: NYSTATIN CREAM - 30GM TUBE TP PRN (09:39)
[2017-04-21] MEDS: nystatin 15 GM powder TP SCH ×2 (09:39→20:50)
[2017-04-21] MEDS: potassium Cl 20 mEq SR tablet PO SCH (17:05)
[2017-04-22] VITALS (11 sets, daily range): BP systolic 93–140; BP diastolic 47–76
[2017-04-22] MEDS: aztreonam inj. 500 MG in normal saline 100ml IV soln 100 ML IV SCH ×4 (00:38→23:27)
[2017-04-22] MEDS: DOBUTamine-DoBUTrex 500mg/D5W 250 ML IV SCH ×2 (05:23→21:33)
[2017-04-22 07:39] LABS: BASOPHILS % (AUTO) 0.4 % (0-1); EOSINOPHILS # (AUTO) 0.2 X10'3 (0-0.9); HEMATOCRIT 30.8 % (42.0-52.0); HEMOGLOBIN 10.3 g/dl (14.0-17.9); LYMPHOCYTES # (AUTO) 0.5 X10'3 (1.1-4.8); LYMPHOCYTES % (AUTO) 10.9 % (21-51); MEAN CORPUSCULAR HEMOGLOBIN 31.7 PG (27.0-31.0); MEAN CORPUSCULAR HGB CONC 33.5 % (33.0-36.5); MEAN CORPUSCULAR VOLUME 94.6 FL (78-98); MEAN PLATELET VOLUME 7.9 FL (7.4-10.4); MONOCYTES # (AUTO) 0.3 X10'3 (0-0.9); MONOCYTES % (AUTO) 7.6 % (2-12); NEUTROPHILS # (AUTO) 3.4 X10'3 (1.8-7.7); NEUTROPHILS % (AUTO) 76.1 % (42-75); PLATELET COUNT 107 X10'3 (140-440); RED BLOOD COUNT 3.26 X10'6 (4.70-6.10); RED CELL DISTRIBUTION WIDTH 14.4 % (11.5-14.5); WHITE BLOOD COUNT 4.4 X10'3 (4.5-11.0)
[2017-04-22] MEDS: oxybutynin 5mg tablet PO SCH ×2 (07:40→19:13)
[2017-04-22] MEDS: tamsulosin 0.4mg capsule PO SCH (07:40)
[2017-04-22] MEDS: lactobacillus rhamnosus 10,000 MMU CELLS/CAPSULE PO SCH ×2 (07:40→17:13)
[2017-04-22] MEDS: thyroid, pork 30mg tablet PO SCH (07:40)
[2017-04-22] MEDS: morphine ER 30mg tablet PO SCH ×3 (07:41→21:26)
[2017-04-22] MEDS: docusate sod 100mg capsule PO SCH ×2 (07:41→19:13)
[2017-04-22] MEDS: gabapentin 100mg capsule PO SCH ×3 (07:41→21:26)
[2017-04-22] MEDS: cyanocobalamin 500mcg tablet PO SCH (07:41)
[2017-04-22] MEDS: sennosides/docusate sodium tablet PO SCH ×2 (07:41→19:13)
[2017-04-22] MEDS: bumetanide 1mg tablet PO SCH (07:41)
[2017-04-22] MEDS: folic acid 1mg tablet PO SCH (07:41)
[2017-04-22] MEDS: levoFLOXACIN 750MG TABLET PO SCH (07:41)
[2017-04-22] MEDS: ascorbic acid 500mg tablet PO SCH (07:42)
[2017-04-22] MEDS: nystatin 500,000 unit/5ML UD oral suspension PO SCH ×3 (07:42→21:25)
[2017-04-22] MEDS: furosemide 20 MG/2 ML vial IV SCH ×2 (07:42→19:13)
[2017-04-22] MEDS: digoxin 125mcg (0.125mg) tablet PO SCH (07:42)
[2017-04-22] MEDS: lactulose 20gm/30ml cup PO SCH ×2 (07:43→19:13)
[2017-04-22] MEDS: NYSTATIN CREAM - 30GM TUBE TP PRN (07:43)
[2017-04-22] MEDS: FEBUXOSTAT PO SCH (07:44)
[2017-04-22] MEDS: nystatin 15 GM powder TP SCH ×2 (07:44→19:13)
[2017-04-22] MEDS: neomy sulf/bacitrac zn/polymixin b oint 14.2 gm tube TP SCH (07:45)
[2017-04-22] MEDS: potassium Cl 20 mEq SR tablet PO SCH ×2 (07:45→17:14)
[2017-04-22] MEDS: metoprolol succinate 25mg (24-HOUR) SR. Tablet PO SCH ×2 (07:54→21:26)
[2017-04-22] MEDS: LIDOcaine 5% patch TP SCH (07:55)
[2017-04-22] MEDS: enoxaparin 30mg/0.3ml syringe SUBCUT SCH (07:55)
[2017-04-22] MEDS: lisinopril 2.5mg tablet PO SCH ×2 (07:55→21:00)
[2017-04-22 08:04] LABS: ALANINE AMINOTRANSFERASE 14 U/L (12-78); ALBUMIN 2.1 G/DL (3.4-5.0); ALBUMIN/GLOBULIN RATIO 0.5 (1.1-1.5); ALKALINE PHOSPHATASE 65 IU/L (46-116); ANION GAP 6 (8-16); ASPARTATE AMINO TRANSFERASE 22 U/L (10-37); BILIRUBIN,TOTAL 0.9 MG/DL (0.1-1.0); BLOOD UREA NITROGEN 32 MG/DL (7-18); BUN/CREATININE RATIO 18.8 (5.4-32.0); CALCIUM 8.2 MG/DL (8.5-10.1); CHLORIDE 101 MMOL/L (99-107); GLUCOSE 106 MG/DL (70-104); POTASSIUM 3.7 MMOL/L (3.5-5.1); SODIUM 136 MMOL/L (135-145); TOTAL CARBON DIOXIDE 28.9 MMOL/L (24-32); TOTAL PROTEIN 6.1 G/DL (6.4-8.2); eGFR 39 ML/MIN
[2017-04-22] MEDS: HYDROcodone/acetaminophen 10/325mg tab PO PRN (23:27)
[2017-04-23] VITALS (14 sets, daily range): BP systolic 95–123; BP diastolic 46–68
[2017-04-23] MEDS: furosemide 20 MG/2 ML vial IV SCH ×2 (07:32→20:18)
[2017-04-23] MEDS: metoprolol succinate 25mg (24-HOUR) SR. Tablet PO SCH ×2 (07:32→20:18)
[2017-04-23] MEDS: nystatin 500,000 unit/5ML UD oral suspension PO SCH ×3 (07:32→20:18)
[2017-04-23] MEDS: cyanocobalamin 500mcg tablet PO SCH (07:33)
[2017-04-23] MEDS: sennosides/docusate sodium tablet PO SCH ×2 (07:33→20:18)
[2017-04-23] MEDS: lactulose 20gm/30ml cup PO SCH ×2 (07:33→20:17)
[2017-04-23] MEDS: NYSTATIN CREAM - 30GM TUBE TP PRN (07:33)
[2017-04-23] MEDS: tamsulosin 0.4mg capsule PO SCH (07:34)
[2017-04-23] MEDS: aztreonam inj. 500 MG in normal saline 100ml IV soln 100 ML IV SCH ×3 (07:34→23:04)
[2017-04-23] MEDS: FEBUXOSTAT PO SCH (07:34)
[2017-04-23] MEDS: docusate sod 100mg capsule PO SCH ×2 (07:34→20:18)
[2017-04-23] MEDS: oxybutynin 5mg tablet PO SCH ×2 (07:34→20:18)
[2017-04-23] MEDS: digoxin 125mcg (0.125mg) tablet PO SCH (07:35)
[2017-04-23] MEDS: gabapentin 100mg capsule PO SCH ×3 (07:35→20:18)
[2017-04-23] MEDS: ascorbic acid 500mg tablet PO SCH (07:36)
[2017-04-23] MEDS: thyroid, pork 30mg tablet PO SCH (07:36)
[2017-04-23] MEDS: lactobacillus rhamnosus 10,000 MMU CELLS/CAPSULE PO SCH ×2 (07:36→16:44)
[2017-04-23] MEDS: morphine ER 30mg tablet PO SCH ×3 (07:36→20:18)
[2017-04-23] MEDS: folic acid 1mg tablet PO SCH (07:36)
[2017-04-23] MEDS: potassium Cl 20 mEq SR tablet PO SCH ×2 (07:37→16:44)
[2017-04-23] MEDS: neomy sulf/bacitrac zn/polymixin b oint 14.2 gm tube TP SCH (07:37)
[2017-04-23] MEDS: enoxaparin 30mg/0.3ml syringe SUBCUT SCH (08:00)
[2017-04-23] MEDS: LIDOcaine 5% patch TP SCH (08:00)
[2017-04-23 08:08] LABS: ALANINE AMINOTRANSFERASE 13 U/L (12-78); ALBUMIN/GLOBULIN RATIO 0.5 (1.1-1.5); ALKALINE PHOSPHATASE 65 IU/L (46-116); ANION GAP 5 (8-16); ASPARTATE AMINO TRANSFERASE 20 U/L (10-37); BILIRUBIN,TOTAL 0.8 MG/DL (0.1-1.0); BLOOD UREA NITROGEN 30 MG/DL (7-18); BUN/CREATININE RATIO 16.7 (5.4-32.0); CALCIUM 8.3 MG/DL (8.5-10.1); CHLORIDE 102 MMOL/L (99-107); GLUCOSE 84 MG/DL (70-104); SODIUM 136 MMOL/L (135-145); TOTAL CARBON DIOXIDE 28.6 MMOL/L (24-32); TOTAL PROTEIN 6.2 G/DL (6.4-8.2); eGFR 36 ML/MIN
[2017-04-23] MEDS: nystatin 15 GM powder TP SCH ×2 (08:25→20:24)
[2017-04-23] MEDS: bumetanide 1mg tablet PO SCH (08:49)
[2017-04-23 10:41] LABS: MAGNESIUM 1.6 MG/DL (1.5-2.4)
[2017-04-23] MEDS: HYDROcodone/acetaminophen 10/325mg tab PO PRN (15:45)
[2017-04-23] MEDS: diphenhydrAMINE 25mg capsule PO PRN ×2 (15:54→23:04)
[2017-04-23] MEDS: DOBUTamine-DoBUTrex 500mg/D5W 250 ML IV SCH ×2 (16:30→20:24)
[2017-04-23] MEDS: lisinopril 2.5mg tablet PO SCH (20:18)
[2017-04-24] VITALS (13 sets, daily range): BP systolic 100–117; BP diastolic 54–68
[2017-04-24] MEDS: HYDROcodone/acetaminophen 10/325mg tab PO PRN ×3 (00:20→23:34)
[2017-04-24 05:05] LABS: BASOPHILS % (AUTO) 0.5 % (0-1); EOSINOPHILS # (AUTO) 0.3 X10'3 (0-0.9); EOSINOPHILS % (AUTO) 5.9 % (0-6); HEMOGLOBIN 10.4 g/dl (14.0-17.9); LYMPHOCYTES # (AUTO) 0.7 X10'3 (1.1-4.8); LYMPHOCYTES % (AUTO) 12.7 % (21-51); MEAN CORPUSCULAR HEMOGLOBIN 31.6 PG (27.0-31.0); MEAN CORPUSCULAR HGB CONC 33.6 % (33.0-36.5); MEAN CORPUSCULAR VOLUME 94.1 FL (78-98); MEAN PLATELET VOLUME 8.1 FL (7.4-10.4); MONOCYTES # (AUTO) 0.5 X10'3 (0-0.9); MONOCYTES % (AUTO) 9.3 % (2-12); NEUTROPHILS # (AUTO) 3.8 X10'3 (1.8-7.7); NEUTROPHILS % (AUTO) 71.6 % (42-75); PLATELET COUNT 110 X10'3 (140-440); RED BLOOD COUNT 3.29 X10'6 (4.70-6.10); RED CELL DISTRIBUTION WIDTH 14.7 % (11.5-14.5); WHITE BLOOD COUNT 5.3 X10'3 (4.5-11.0)
[2017-04-24 05:45] LABS: ALANINE AMINOTRANSFERASE 9 U/L (12-78); ALBUMIN 1.9 G/DL (3.4-5.0); ALBUMIN/GLOBULIN RATIO 0.5 (1.1-1.5); ALKALINE PHOSPHATASE 63 IU/L (46-116); ANION GAP 4 (8-16); ASPARTATE AMINO TRANSFERASE 18 U/L (10-37); BILIRUBIN,TOTAL 0.6 MG/DL (0.1-1.0); BLOOD UREA NITROGEN 30 MG/DL (7-18); BUN/CREATININE RATIO 17.6 (5.4-32.0); CALCIUM 8.6 MG/DL (8.5-10.1); CHLORIDE 103 MMOL/L (99-107); GLUCOSE 84 MG/DL (70-104); POTASSIUM 4.3 MMOL/L (3.5-5.1); SODIUM 138 MMOL/L (135-145); TOTAL CARBON DIOXIDE 31.1 MMOL/L (24-32); TOTAL PROTEIN 6.1 G/DL (6.4-8.2); eGFR 39 ML/MIN
[2017-04-24] MEDS: FEBUXOSTAT PO SCH (07:29)
[2017-04-24] MEDS: metoprolol succinate 25mg (24-HOUR) SR. Tablet PO SCH ×2 (07:30→20:18)
[2017-04-24] MEDS: lactobacillus rhamnosus 10,000 MMU CELLS/CAPSULE PO SCH ×2 (07:30→17:22)
[2017-04-24] MEDS: gabapentin 100mg capsule PO SCH ×3 (07:30→20:19)
[2017-04-24] MEDS: docusate sod 100mg capsule PO SCH ×2 (07:31→20:18)
[2017-04-24] MEDS: nystatin 500,000 unit/5ML UD oral suspension PO SCH ×3 (07:32→20:18)
[2017-04-24] MEDS: sennosides/docusate sodium tablet PO SCH ×2 (07:32→20:18)
[2017-04-24] MEDS: bumetanide 1mg tablet PO SCH (07:33)
[2017-04-24] MEDS: furosemide 20 MG/2 ML vial IV SCH ×2 (07:33→20:18)
[2017-04-24] MEDS: ascorbic acid 500mg tablet PO SCH (07:34)
[2017-04-24] MEDS: folic acid 1mg tablet PO SCH (07:34)
[2017-04-24] MEDS: tamsulosin 0.4mg capsule PO SCH (07:34)
[2017-04-24] MEDS: oxybutynin 5mg tablet PO SCH ×2 (07:35→20:18)
[2017-04-24] MEDS: digoxin 125mcg (0.125mg) tablet PO SCH (07:36)
[2017-04-24] MEDS: morphine ER 30mg tablet PO SCH ×3 (07:37→20:18)
[2017-04-24] MEDS: aztreonam inj. 500 MG in normal saline 100ml IV soln 100 ML IV SCH ×3 (07:38→23:35)
[2017-04-24] MEDS: thyroid, pork 30mg tablet PO SCH (07:49)
[2017-04-24] MEDS: cyanocobalamin 500mcg tablet PO SCH (07:49)
[2017-04-24] MEDS: nystatin 15 GM powder TP SCH ×2 (08:00→20:19)
[2017-04-24] MEDS: lactulose 20gm/30ml cup PO SCH ×2 (08:00→20:18)
[2017-04-24] MEDS: enoxaparin 30mg/0.3ml syringe SUBCUT SCH (08:00)
[2017-04-24] MEDS: LIDOcaine 5% patch TP SCH (08:00)
[2017-04-24] MEDS: neomy sulf/bacitrac zn/polymixin b oint 14.2 gm tube TP SCH (08:00)
[2017-04-24] MEDS: potassium Cl 20 mEq SR tablet PO SCH ×2 (09:28→17:22)
[2017-04-24] MEDS ORDERED: polyvinyl alcohol ophthalmic drops 15ml bottle EACHEYE PRN (10:25)
[2017-04-24] MEDS: polyvinyl alcohol ophthalmic drops 15ml bottle EACHEYE PRN (16:43)
[2017-04-24] MEDS: DOBUTamine-DoBUTrex 500mg/D5W 250 ML IV SCH (20:17)
[2017-04-24] MEDS: LIDOCAINE 5% OINTMENT 35GM TP SCH (20:19)
[2017-04-24] MEDS: lisinopril 2.5mg tablet PO SCH (20:19)
[2017-04-25] VITALS (15 sets, daily range): BP systolic 91–117; BP diastolic 46–73
[2017-04-25] MEDS: diphenhydrAMINE 25mg capsule PO PRN (03:40)
[2017-04-25 05:30] LABS: ALANINE AMINOTRANSFERASE 11 U/L (12-78); ALBUMIN 1.9 G/DL (3.4-5.0); ALBUMIN/GLOBULIN RATIO 0.5 (1.1-1.5); ALKALINE PHOSPHATASE 60 IU/L (46-116); ANION GAP 6 (8-16); ASPARTATE AMINO TRANSFERASE 18 U/L (10-37); BILIRUBIN,TOTAL 0.6 MG/DL (0.1-1.0); BLOOD UREA NITROGEN 28 MG/DL (7-18); BUN/CREATININE RATIO 16.3 (5.4-32.0); CALCIUM 8.4 MG/DL (8.5-10.1); CHLORIDE 102 MMOL/L (99-107); CREATININE 1.72 MG/DL (0.60-1.10); GLUCOSE 75 MG/DL (70-104); POTASSIUM 4.2 MMOL/L (3.5-5.1); SODIUM 138 MMOL/L (135-145); TOTAL CARBON DIOXIDE 30.3 MMOL/L (24-32); TOTAL PROTEIN 6.1 G/DL (6.4-8.2); eGFR 38 ML/MIN
[2017-04-25] MEDS: aztreonam inj. 500 MG in normal saline 100ml IV soln 100 ML IV SCH ×2 (07:23→16:18)
[2017-04-25] MEDS: LIDOcaine 5% patch TP SCH (07:26)
[2017-04-25] MEDS: thyroid, pork 30mg tablet PO SCH (07:29)
[2017-04-25] MEDS: cyanocobalamin 500mcg tablet PO SCH (07:29)
[2017-04-25] MEDS: oxybutynin 5mg tablet PO SCH ×2 (07:30→21:21)
[2017-04-25] MEDS: morphine ER 30mg tablet PO SCH ×3 (07:30→21:21)
[2017-04-25] MEDS: HYDROcodone/acetaminophen 10/325mg tab PO PRN ×3 (07:30→22:10)
[2017-04-25] MEDS: bumetanide 1mg tablet PO SCH (07:30)
[2017-04-25] MEDS: FEBUXOSTAT PO SCH (07:31)
[2017-04-25] MEDS: lactobacillus rhamnosus 10,000 MMU CELLS/CAPSULE PO SCH ×2 (07:31→16:18)
[2017-04-25] MEDS: folic acid 1mg tablet PO SCH (07:31)
[2017-04-25] MEDS: docusate sod 100mg capsule PO SCH ×2 (07:31→21:21)
[2017-04-25] MEDS: gabapentin 100mg capsule PO SCH ×3 (07:31→21:20)
[2017-04-25] MEDS: sennosides/docusate sodium tablet PO SCH ×2 (07:32→21:21)
[2017-04-25] MEDS: tamsulosin 0.4mg capsule PO SCH (07:32)
[2017-04-25] MEDS: digoxin 125mcg (0.125mg) tablet PO SCH (07:32)
[2017-04-25] MEDS: LIDOCAINE 5% OINTMENT 35GM TP SCH ×2 (07:33→21:31)
[2017-04-25] MEDS: NYSTATIN CREAM - 30GM TUBE TP PRN (07:33)
[2017-04-25] MEDS: enoxaparin 30mg/0.3ml syringe SUBCUT SCH (07:34)
[2017-04-25] MEDS: furosemide 20 MG/2 ML vial IV SCH ×2 (07:34→21:21)
[2017-04-25] MEDS: lactulose 20gm/30ml cup PO SCH ×2 (07:35→21:22)
[2017-04-25] MEDS: polyvinyl alcohol ophthalmic drops 15ml bottle EACHEYE PRN (07:36)
[2017-04-25] MEDS: metoprolol succinate 25mg (24-HOUR) SR. Tablet PO SCH ×2 (07:36→21:21)
[2017-04-25] MEDS: ascorbic acid 500mg tablet PO SCH (07:36)
[2017-04-25] MEDS: nystatin 15 GM powder TP SCH ×2 (07:37→21:23)
[2017-04-25] MEDS: neomy sulf/bacitrac zn/polymixin b oint 14.2 gm tube TP SCH (07:37)
[2017-04-25] MEDS: potassium Cl 20 mEq SR tablet PO SCH ×2 (07:52→16:19)
[2017-04-25] MEDS: nystatin 500,000 unit/5ML UD oral suspension PO SCH ×3 (07:52→21:20)
[2017-04-25] MEDS: lisinopril 2.5mg tablet PO SCH (21:21)
[2017-04-26] VITALS (17 sets, daily range): BP systolic 77–116; BP diastolic 37–62
[2017-04-26] MEDS: enoxaparin 30mg/0.3ml syringe SUBCUT SCH (08:00)
[2017-04-26] MEDS: sennosides/docusate sodium tablet PO SCH (08:00)
[2017-04-26] MEDS ORDERED: DOBUTamine-DoBUTrex 500mg/D5W 250 ML IV SCH (09:35)
[2017-04-26] MEDS: folic acid 1mg tablet PO SCH (11:08)
[2017-04-26] MEDS: cyanocobalamin 500mcg tablet PO SCH (11:08)
[2017-04-26] MEDS: tamsulosin 0.4mg capsule PO SCH (11:09)
[2017-04-26] MEDS: oxybutynin 5mg tablet PO SCH (11:09)
[2017-04-26] MEDS: digoxin 125mcg (0.125mg) tablet PO SCH (11:09)
[2017-04-26] MEDS: gabapentin 100mg capsule PO SCH ×2 (11:09→14:44)
[2017-04-26] MEDS: thyroid, pork 30mg tablet PO SCH (11:10)
[2017-04-26] MEDS: lisinopril 2.5mg tablet PO SCH (11:11)
[2017-04-26] MEDS: lactulose 20gm/30ml cup PO SCH (11:11)
[2017-04-26] MEDS: ascorbic acid 500mg tablet PO SCH (11:11)
[2017-04-26] MEDS: metoprolol succinate 25mg (24-HOUR) SR. Tablet PO SCH (11:11)
[2017-04-26] MEDS: lactobacillus rhamnosus 10,000 MMU CELLS/CAPSULE PO SCH (11:12)
[2017-04-26] MEDS: nystatin 500,000 unit/5ML UD oral suspension PO SCH ×2 (11:12→14:47)
[2017-04-26] MEDS: potassium Cl 20 mEq SR tablet PO SCH (11:15)
[2017-04-26] MEDS: LIDOcaine 5% patch TP SCH (11:16)
[2017-04-26] MEDS: nystatin 15 GM powder TP SCH (11:16)
[2017-04-26] MEDS: neomy sulf/bacitrac zn/polymixin b oint 14.2 gm tube TP SCH (11:16)
[2017-04-26] MEDS: docusate sod 100mg capsule PO SCH (11:17)
[2017-04-26] MEDS: LIDOCAINE 5% OINTMENT 35GM TP SCH (11:17)
[2017-04-26] MEDS: morphine ER 30mg tablet PO SCH ×2 (11:18→14:44)
[2017-04-26] MEDS: FEBUXOSTAT PO SCH (11:19)
[2017-04-26] MEDS ORDERED: DIGO125T PO (14:11)
[2017-04-26] MEDS: bumetanide 1mg tablet PO SCH (14:43)
[2017-04-26] MEDS: furosemide 20 MG/2 ML vial IV SCH (14:43)
[2017-04-26] MEDS: HYDROcodone/acetaminophen 10/325mg tab PO PRN (15:45)
[2017-04-28] MEDS ORDERED: FURO80TA87 PO (05:42)
== END 2017-04-26 16:20 | disposition home health service (06) | DRG 291 ==
LOC: ER 19:56 → ED HOLD 22:05 → SUR 3N 04-14 08:00 → PCU 3S 04-14 16:58
PROVIDERS: ADMIT Family Medicine; ATTEND Family Medicine
PROC: 02HV33Z Insertion of Infusion Device into Superior Vena Cava, Percutaneous Approach (ICD-10-PCS; principal; 2017-04-25)
PROC: B548ZZA Ultrasonography of Superior Vena Cava, Guidance (ICD-10-PCS; 2017-04-25)
DX: I13.0 Hypertensive heart and chronic kidney disease with heart failure and stage 1 through stage 4 chronic kidney disease, or unspecified chronic kidney disease (principal); I50.23 Acute on chronic systolic (congestive) heart failure; J96.21 Acute and chronic respiratory failure with hypoxia; J18.9 Pneumonia, unspecified organism; N17.9 Acute kidney failure, unspecified; I47.2 Ventricular tachycardia; D69.6 Thrombocytopenia, unspecified; I95.9 Hypotension, unspecified; E66.01 Morbid (severe) obesity due to excess calories; I48.2 Chronic atrial fibrillation; I42.9 Cardiomyopathy, unspecified; J44.0 Chronic obstructive pulmonary disease with (acute) lower respiratory infection; N39.0 Urinary tract infection, site not specified; Z68.41 Body mass index [BMI] 40.0-44.9, adult; G89.29 Other chronic pain; M10.9 Gout, unspecified; M19.90 Unspecified osteoarthritis, unspecified site; B96.20 Unspecified Escherichia coli [E. coli] as the cause of diseases classified elsewhere; D64.9 Anemia, unspecified; E03.9 Hypothyroidism, unspecified; I25.10 Atherosclerotic heart disease of native coronary artery without angina pectoris; K59.00 Constipation, unspecified; N18.9 Chronic kidney disease, unspecified; N40.0 Benign prostatic hyperplasia without lower urinary tract symptoms; Z51.5 Encounter for palliative care; I25.2 Old myocardial infarction; Z90.49 Acquired absence of other specified parts of digestive tract; Z95.810 Presence of automatic (implantable) cardiac defibrillator; Z99.3 Dependence on wheelchair; Z88.1 Allergy status to other antibiotic agents; Z88.5 Allergy status to narcotic agent; Z88.0 Allergy status to penicillin; Z88.8 Allergy status to other drugs, medicaments and biological substances; Z91.048 Other nonmedicinal substance allergy status; Z79.899 Other long term (current) drug therapy; Z79.891 Long term (current) use of opiate analgesic; Z86.718 Personal history of other venous thrombosis and embolism; Z87.891 Personal history of nicotine dependence
CPT/HCPCS: 36415; 36569; 71045; 71250; 73110; 76937; 80053; 80061; 81001; 83036; 83735; 83880; 84100; 84145; 84484; 85025; 87070; 87077; 87088; 87186; 93005; 93306; 93701; 94640; 94760; 97110; 97161; 97530; 99285; A4315; A6212; A6213; A6250; A6449; J1250; J1650; J1940; J1956; J2185; J2405; J3490; J7030; Q0163

== ENCOUNTER → 2017-04-28 | Emergency (ER) | payer MEDICARE, MEDICAID, OTHER ==
[~2017-04-28] VITALS: Ht 172.7 cm; Wt 152.0 kg
[~2017-04-28] MED LIST changes: +DIGO125T PO; +FURO80TA87 PO; +furosemide 10 MG/1 ML 10ml inj IV ONE
[2017-04-28 04:56] LABS: BASOPHILS % (AUTO) 0.4 % (0-1); EOSINOPHILS # (AUTO) 0.4 X10'3 (0-0.9); EOSINOPHILS % (AUTO) 5.1 % (0-6); HEMATOCRIT 33.8 % (42.0-52.0); HEMOGLOBIN 11.5 g/dl (14.0-17.9); LYMPHOCYTES # (AUTO) 1.2 X10'3 (1.1-4.8); LYMPHOCYTES % (AUTO) 14.7 % (21-51); MEAN CORPUSCULAR HEMOGLOBIN 31.8 PG (27.0-31.0); MEAN CORPUSCULAR HGB CONC 34.1 % (33.0-36.5); MEAN CORPUSCULAR VOLUME 93.2 FL (78-98); MEAN PLATELET VOLUME 7.8 FL (7.4-10.4); MONOCYTES # (AUTO) 0.6 X10'3 (0-0.9); MONOCYTES % (AUTO) 7.6 % (2-12); NEUTROPHILS # (AUTO) 5.8 X10'3 (1.8-7.7); NEUTROPHILS % (AUTO) 72.2 % (42-75); PLATELET COUNT 144 X10'3 (140-440); RED BLOOD COUNT 3.63 X10'6 (4.70-6.10); RED CELL DISTRIBUTION WIDTH 14.6 % (11.5-14.5)
[2017-04-28 05:21] LABS: ALANINE AMINOTRANSFERASE 14 U/L (12-78); ALBUMIN 2.2 G/DL (3.4-5.0); ALBUMIN/GLOBULIN RATIO 0.4 (1.1-1.5); ALKALINE PHOSPHATASE 82 IU/L (46-116); ANION GAP 8 (8-16); ASPARTATE AMINO TRANSFERASE 28 U/L (10-37); BILIRUBIN,TOTAL 0.5 MG/DL (0.1-1.0); BLOOD UREA NITROGEN 35 MG/DL (7-18); BUN/CREATININE RATIO 16.1 (5.4-32.0); CALCIUM 8.7 MG/DL (8.5-10.1); CHLORIDE 97 MMOL/L (99-107); CREATININE 2.18 MG/DL (0.60-1.10); GLUCOSE 78 MG/DL (70-104); MAGNESIUM 1.8 MG/DL (1.5-2.4); POTASSIUM 4.6 MMOL/L (3.5-5.1); SODIUM 133 MMOL/L (135-145); TOTAL CARBON DIOXIDE 27.9 MMOL/L (24-32); TOTAL PROTEIN 7.2 G/DL (6.4-8.2); eGFR 29 ML/MIN
[2017-04-28 11:25] VITALS: BP 100/83
== END | disposition home or self-care (01) ==
LOC: ER 04:29
DX: N17.9 Acute kidney failure, unspecified (principal); N18.9 Chronic kidney disease, unspecified; I50.9 Heart failure, unspecified; J44.9 Chronic obstructive pulmonary disease, unspecified; I25.10 Atherosclerotic heart disease of native coronary artery without angina pectoris; I25.2 Old myocardial infarction; G89.29 Other chronic pain; Z95.0 Presence of cardiac pacemaker; Z79.899 Other long term (current) drug therapy; Z88.0 Allergy status to penicillin; Z88.1 Allergy status to other antibiotic agents; Z88.5 Allergy status to narcotic agent; Z88.8 Allergy status to other drugs, medicaments and biological substances
CPT/HCPCS: 36415; 71045; 80053; 83735; 83880; 85025; 96374; 99285; J1940

== ENCOUNTER 2017-11-13 01:45 | Inpatient (IN) | payer MEDICARE, MEDICAID, OTHER ==
[~2017-11-13] VITALS: Ht 180.3 cm; Wt 121.1 kg
[~2017-11-13 01:45] MED LIST changes: -DIGO125T PO; -DOBU500I5; -FURO80TA87 PO; -furosemide 10 MG/1 ML 10ml inj IV ONE
[2017-11-13 02:37] LABS: BASOPHILS % (AUTO) 0.6 % (0-1); EOSINOPHILS # (AUTO) 0.1 X10'3 (0-0.9); EOSINOPHILS % (AUTO) 2.4 % (0-6); HEMATOCRIT 31.8 % (42.0-52.0); HEMOGLOBIN 10.8 g/dl (14.0-17.9); LYMPHOCYTES # (AUTO) 0.9 X10'3 (1.1-4.8); LYMPHOCYTES % (AUTO) 19.3 % (21-51); MEAN CORPUSCULAR HEMOGLOBIN 31.3 PG (27.0-31.0); MEAN CORPUSCULAR VOLUME 92.1 FL (78-98); MEAN PLATELET VOLUME 8.8 FL (7.4-10.4); MONOCYTES # (AUTO) 0.4 X10'3 (0-0.9); MONOCYTES % (AUTO) 8.2 % (2-12); NEUTROPHILS # (AUTO) 3.4 X10'3 (1.8-7.7); NEUTROPHILS % (AUTO) 69.5 % (42-75); PLATELET COUNT 151 X10'3 (140-440); RED BLOOD COUNT 3.46 X10'6 (4.70-6.10); RED CELL DISTRIBUTION WIDTH 13.3 % (11.5-14.5); WHITE BLOOD COUNT 4.9 X10'3 (4.5-11.0)
[2017-11-13] MEDS ORDERED: CYAN1TAB41 PO (02:42)
[2017-11-13] MEDS ORDERED: FEBU80TA PO (02:42)
[2017-11-13] MEDS ORDERED: ATRIN INH (02:42)
[2017-11-13] MEDS ORDERED: BISA10SU60 RC (02:42)
[2017-11-13] MEDS ORDERED: FLO0.4C PO (02:46)
[2017-11-13] MEDS ORDERED: MYCOL30CR TP (02:46)
[2017-11-13 02:47] LABS: CLARITY,URINE CLEAR (Clear); COLOR,URINE YELLOW (Yellow); GLUCOSE, URINE NEGATIVE (Neg); KETONES,URINE NEGATIVE (Neg); LEUKOCYTE ESTERASE ,URINE MODERATE (Neg); NITRITES, URINE NEGATIVE (Neg); OCCULT BLOOD,URINE NEGATIVE (Neg); PROTEIN,URINE NEGATIVE (Neg); UROBILINOGEN,URINE 0.2 E.U/dL (0.2-1.0)
[2017-11-13 02:49] LABS: PARTIAL THROMBOPLASTIN TIME 28 SECONDS (22-32); PROTHROMBIN TIME 10.4 SECONDS (9.0-12.0)
[2017-11-13 02:54] LABS: ALANINE AMINOTRANSFERASE 15 U/L (12-78); ALBUMIN 2.3 G/DL (3.4-5.0); ALBUMIN/GLOBULIN RATIO 0.5 (1.1-1.5); ALKALINE PHOSPHATASE 76 IU/L (46-116); ANION GAP 2 (8-16); ASPARTATE AMINO TRANSFERASE 16 U/L (10-37); BILIRUBIN,TOTAL 0.3 MG/DL (0.1-1.0); BLOOD UREA NITROGEN 59 MG/DL (7-18); BUN/CREATININE RATIO 24.7 (5.4-32.0); CALCIUM 8.9 MG/DL (8.5-10.1); CHLORIDE 95 MMOL/L (99-107); CREATININE 2.39 MG/DL (0.60-1.10); GLUCOSE 104 MG/DL (70-104); MAGNESIUM 2.8 MG/DL (1.5-2.4); POTASSIUM 4.2 MMOL/L (3.5-5.1); SODIUM 130 MMOL/L (135-145); TOTAL CARBON DIOXIDE 33.3 MMOL/L (24-32); TOTAL PROTEIN 7.2 G/DL (6.4-8.2); eGFR 26 ML/MIN
[2017-11-13 02:55] LABS: UA COLLECTION TYPE FOLEY CATH
[2017-11-13 02:56] LABS: BACTERIA,URINE 1+ /HPF (Neg); RBC,URINE NONE SEEN /HPF (0-2); SQUAMOUS EPITHELIAL CELL,UR FEW /LPF (FEW)
[2017-11-13] MEDS ORDERED: THY60T PO (03:15)
[2017-11-13] MEDS ORDERED: OXYB5TAB11 PO (03:15)
[2017-11-13] MEDS ORDERED: METO50TA7 PO (03:15)
[2017-11-13] MEDS ORDERED: DOBU500I5 IV (03:15)
[2017-11-13] MEDS ORDERED: BUME1TAB4 PO (03:15)
[2017-11-13] MEDS ORDERED: FLUT1AER (03:15)
[2017-11-13] MEDS ORDERED: GABA-530 PO (03:15)
[2017-11-13] MEDS ORDERED: FURO40TA4 PO (03:15)
[2017-11-13] MEDS ORDERED: THY15T PO (03:15)
[2017-11-13] MEDS ORDERED: LIDO5CRE18 (03:15)
[2017-11-13] MEDS ORDERED: HYDR26CR (03:15)
[2017-11-13] MEDS ORDERED: MORP-64 PO (03:15)
[2017-11-13] MEDS ORDERED: ONDA4TAB9 PO (03:15)
[2017-11-13] MEDS ORDERED: FOLI1TAB16 PO (03:15)
[2017-11-13] MEDS ORDERED: LISI-600 PO (03:15)
[2017-11-13] MEDS ORDERED: SENN-61 PO (03:15)
[2017-11-13] MEDS ORDERED: MICO5POW6 TOP (03:15)
[2017-11-13] MEDS ORDERED: LACT1CAP65 PO (03:15)
[2017-11-13] MEDS ORDERED: levoFLOXACIN-Levaquin 500mg/D5 100 ML IV ONE (03:30)
[2017-11-13] MEDS ORDERED: meropenem inj 500 MG in normal saline 100ml IV soln 100 ML IV STA (03:40)
[2017-11-13] MEDS ORDERED: ondansetron/PF 4mg/2ml inj IV PRN (04:20)
[2017-11-13] MEDS ORDERED: acetaminophen 325mg tablet PO PRN (04:20)
[2017-11-13] MEDS ORDERED: magnesium hydroxide 30ml (MOM) UD suspension PO PRN (04:20)
[2017-11-13] MEDS ORDERED: mag hydrox/Alum hydrox/simeth 30ml oral suspension PO PRN (04:20)
[2017-11-13] MEDS: DOBUTamine 2000 MCG/250ML BAG IV SCH (04:41)
[2017-11-13] MEDS ORDERED: furosemide 10 MG/1 ML 10ml inj IV ONE (05:30)
[2017-11-13] MEDS ORDERED: ipratropium 0.5 MG/2.5ML nebule NEB SCH (07:00)
[2017-11-13] MEDS ORDERED: CYANOCOBALAMIN PO SCH (08:00)
[2017-11-13] MEDS: lisinopril 2.5mg tablet PO SCH (08:00)
[2017-11-13] MEDS ORDERED: febuxostat 40mg tablet PO SCH (08:00)
[2017-11-13] MEDS ORDERED: [UNRECOGNIZED DRUG - OTHER] PO SCH (08:00)
[2017-11-13] MEDS: bumetanide 1mg tablet PO SCH ×2 (08:00→20:00)
[2017-11-13] MEDS: morphine ER 15mg tablet PO SCH ×3 (08:00→21:35)
[2017-11-13] MEDS: miconazole nitrate 28.35 gm derm cream TP SCH ×2 (08:00→22:49)
[2017-11-13] MEDS: nystatin/triamcinolone cream 15gm TP SCH ×2 (08:00→20:00)
[2017-11-13] MEDS ORDERED: FOLIC ACID PO SCH (08:00)
[2017-11-13] MEDS ORDERED: DOBUTamine/D5W 500mg/250ml premix IV SCH (08:00)
[2017-11-13] MEDS: oxybutynin 5mg tablet PO SCH ×3 (08:55→21:35)
[2017-11-13] MEDS: lactobacillus rhamnosus 10,000 MMU CELLS/CAPSULE PO SCH ×2 (08:56→21:34)
[2017-11-13] MEDS: metoprolol succinate 25mg (24-HOUR) SR. Tablet PO SCH (08:56)
[2017-11-13] MEDS: tamsulosin 0.4mg capsule PO SCH (08:56)
[2017-11-13] MEDS: gabapentin 100mg capsule PO SCH ×2 (08:56→16:48)
[2017-11-13] MEDS: folic acid 1mg tablet PO SCH (08:56)
[2017-11-13] MEDS: thyroid, pork 30mg tablet PO SCH (08:58)
[2017-11-13] MEDS: furosemide 40mg tablet PO SCH ×2 (08:58→20:00)
[2017-11-13] MEDS: ipratropium/albuterol 3ml nebule NEB SCH ×3 (09:00→09:53)
[2017-11-13] MEDS ORDERED: albuterol 2.5 MG/3 ML nebule NEB SCH (09:00)
[2017-11-13] MEDS: BUDESONIDE 0.25 MG/2 ML AMPUL.NEB IH SCH ×2 (09:35→20:12)
[2017-11-13 15:36] VITALS: BP 85/48
[2017-11-13] MEDS: meropenem inj 500 MG in normal saline 100ml IV soln 100 ML IV SCH (16:49)
[2017-11-13 19:00] VITALS: BP 84/52
[2017-11-13] MEDS: levalbuterol 0.63mg/3ml nebule IH SCH (20:12)
[2017-11-13] MEDS: ipratropium 0.5 MG/2.5ML nebule IH SCH ×2 (20:12→21:00)
[2017-11-13 23:00] VITALS: BP 78/43
[2017-11-14] VITALS (8 sets, daily range): BP systolic 75–103; BP diastolic 42–59
[2017-11-14] MEDS: diphenhydrAMINE 2%/zinc acetate cream TP SCH ×4 (00:22→21:29)
[2017-11-14] MEDS: gabapentin 100mg capsule PO SCH ×2 (00:24→08:08)
[2017-11-14] MEDS: meropenem inj 500 MG in normal saline 100ml IV soln 100 ML IV SCH (03:09)
[2017-11-14] MEDS: levalbuterol 0.63mg/3ml nebule IH SCH ×4 (04:30→20:28)
[2017-11-14] MEDS: ipratropium 0.5 MG/2.5ML nebule IH SCH ×4 (04:30→20:28)
[2017-11-14 06:09] LABS: BASOPHILS % (AUTO) 0.4 % (0-1); EOSINOPHILS # (AUTO) 0.1 X10'3 (0-0.9); HEMATOCRIT 29.1 % (42.0-52.0); HEMOGLOBIN 9.9 g/dl (14.0-17.9); LYMPHOCYTES # (AUTO) 0.8 X10'3 (1.1-4.8); LYMPHOCYTES % (AUTO) 16.4 % (21-51); MEAN CORPUSCULAR HEMOGLOBIN 31.1 PG (27.0-31.0); MEAN CORPUSCULAR HGB CONC 34.2 % (33.0-36.5); MONOCYTES # (AUTO) 0.3 X10'3 (0-0.9); MONOCYTES % (AUTO) 5.4 % (2-12); NEUTROPHILS # (AUTO) 3.5 X10'3 (1.8-7.7); NEUTROPHILS % (AUTO) 74.8 % (42-75); PLATELET COUNT 133 X10'3 (140-440); RED CELL DISTRIBUTION WIDTH 13.5 % (11.5-14.5); WHITE BLOOD COUNT 4.7 X10'3 (4.5-11.0)
[2017-11-14 06:27] LABS: ALANINE AMINOTRANSFERASE 11 U/L (12-78); ALBUMIN 1.9 G/DL (3.4-5.0); ALBUMIN/GLOBULIN RATIO 0.4 (1.1-1.5); ALKALINE PHOSPHATASE 55 IU/L (46-116); ANION GAP 3 (8-16); ASPARTATE AMINO TRANSFERASE 12 U/L (10-37); BILIRUBIN,TOTAL 0.4 MG/DL (0.1-1.0); BLOOD UREA NITROGEN 52 MG/DL (7-18); BUN/CREATININE RATIO 23.2 (5.4-32.0); CALCIUM 8.8 MG/DL (8.5-10.1); CHLORIDE 96 MMOL/L (99-107); CREATININE 2.24 MG/DL (0.60-1.10); GLUCOSE 88 MG/DL (70-104); POTASSIUM 4.3 MMOL/L (3.5-5.1); SODIUM 130 MMOL/L (135-145); TOTAL CARBON DIOXIDE 31.2 MMOL/L (24-32); TOTAL PROTEIN 6.2 G/DL (6.4-8.2); eGFR 28 ML/MIN
[2017-11-14] MEDS: nystatin/triamcinolone cream 15gm TP SCH ×2 (08:00→19:32)
[2017-11-14] MEDS: metoprolol succinate 25mg (24-HOUR) SR. Tablet PO SCH (08:00)
[2017-11-14] MEDS: bumetanide 1mg tablet PO SCH ×2 (08:00→19:24)
[2017-11-14] MEDS: lisinopril 2.5mg tablet PO SCH (08:00)
[2017-11-14] MEDS: febuxostat 40mg tablet PO SCH (08:00)
[2017-11-14] MEDS: furosemide 40mg tablet PO SCH (08:00)
[2017-11-14] MEDS: tamsulosin 0.4mg capsule PO SCH (08:09)
[2017-11-14] MEDS: morphine ER 15mg tablet PO SCH ×3 (08:09→21:29)
[2017-11-14] MEDS: thyroid, pork 30mg tablet PO SCH (08:09)
[2017-11-14] MEDS: folic acid 1mg tablet PO SCH (08:09)
[2017-11-14] MEDS: oxybutynin 5mg tablet PO SCH ×2 (08:09→21:29)
[2017-11-14] MEDS: miconazole nitrate 28.35 gm derm cream TP SCH ×2 (08:10→19:29)
[2017-11-14] MEDS: lactobacillus rhamnosus 10,000 MMU CELLS/CAPSULE PO SCH ×2 (08:10→19:24)
[2017-11-14] MEDS ORDERED: sennosides/docusate sodium tablet PO PRN (08:55)
[2017-11-14] MEDS ORDERED: sennosides/docusate sodium tablet PO ONE (09:25)
[2017-11-14] MEDS: BUDESONIDE 0.25 MG/2 ML AMPUL.NEB IH SCH ×2 (09:56→20:28)
[2017-11-14] MEDS: DOBUTamine 2000 MCG/250ML BAG IV SCH (12:39)
[2017-11-14] MEDS ORDERED: mineral oil 133ml enema RC PRN (20:20)
[2017-11-15] MEDS: ipratropium 0.5 MG/2.5ML nebule IH SCH ×2 (02:31→09:28)
[2017-11-15] MEDS: levalbuterol 0.63mg/3ml nebule IH SCH ×2 (02:31→09:28)
[2017-11-15 03:00] VITALS: BP 72/39
[2017-11-15 05:43] LABS: BASOPHILS % (AUTO) 0.4 % (0-1); EOSINOPHILS # (AUTO) 0.1 X10'3 (0-0.9); EOSINOPHILS % (AUTO) 2.8 % (0-6); HEMOGLOBIN 9.9 g/dl (14.0-17.9); LYMPHOCYTES # (AUTO) 0.8 X10'3 (1.1-4.8); LYMPHOCYTES % (AUTO) 20.9 % (21-51); MEAN CORPUSCULAR HEMOGLOBIN 31.3 PG (27.0-31.0); MEAN CORPUSCULAR HGB CONC 34.2 % (33.0-36.5); MEAN CORPUSCULAR VOLUME 91.6 FL (78-98); MONOCYTES # (AUTO) 0.3 X10'3 (0-0.9); MONOCYTES % (AUTO) 7.3 % (2-12); NEUTROPHILS # (AUTO) 2.6 X10'3 (1.8-7.7); NEUTROPHILS % (AUTO) 68.6 % (42-75); PLATELET COUNT 129 X10'3 (140-440); RED BLOOD COUNT 3.17 X10'6 (4.70-6.10); RED CELL DISTRIBUTION WIDTH 12.9 % (11.5-14.5); WHITE BLOOD COUNT 3.8 X10'3 (4.5-11.0)
[2017-11-15 06:36] LABS: ALANINE AMINOTRANSFERASE 12 U/L (12-78); ALBUMIN/GLOBULIN RATIO 0.4 (1.1-1.5); ALKALINE PHOSPHATASE 64 IU/L (46-116); ANION GAP 6 (8-16); ASPARTATE AMINO TRANSFERASE 20 U/L (10-37); BILIRUBIN,TOTAL 0.3 MG/DL (0.1-1.0); BLOOD UREA NITROGEN 49 MG/DL (7-18); BUN/CREATININE RATIO 20.9 (5.4-32.0); CALCIUM 8.9 MG/DL (8.5-10.1); CHLORIDE 94 MMOL/L (99-107); CREATININE 2.35 MG/DL (0.60-1.10); GLUCOSE 87 MG/DL (70-104); POTASSIUM 4.3 MMOL/L (3.5-5.1); SODIUM 128 MMOL/L (135-145); TOTAL PROTEIN 6.5 G/DL (6.4-8.2); eGFR 27 ML/MIN
[2017-11-15 08:00] VITALS: BP 98/51
[2017-11-15] MEDS ORDERED: metoprolol succinate 25mg (24-HOUR) SR. Tablet PO SCH (08:00)
[2017-11-15] MEDS: lisinopril 2.5mg tablet PO SCH (08:00)
[2017-11-15] MEDS: febuxostat 40mg tablet PO SCH (08:00)
[2017-11-15] MEDS: nystatin/triamcinolone cream 15gm TP SCH (08:00)
[2017-11-15] MEDS: oxybutynin 5mg tablet PO SCH ×2 (08:18→13:09)
[2017-11-15] MEDS: bumetanide 1mg tablet PO SCH (08:20)
[2017-11-15] MEDS: lactobacillus rhamnosus 10,000 MMU CELLS/CAPSULE PO SCH (08:20)
[2017-11-15] MEDS: morphine ER 15mg tablet PO SCH ×2 (08:20→13:09)
[2017-11-15] MEDS: miconazole nitrate 28.35 gm derm cream TP SCH (08:21)
[2017-11-15] MEDS: thyroid, pork 30mg tablet PO SCH (08:22)
[2017-11-15] MEDS: diphenhydrAMINE 2%/zinc acetate cream TP SCH ×2 (08:26→13:10)
[2017-11-15 08:44] VITALS: BP 110/65
[2017-11-15] MEDS: BUDESONIDE 0.25 MG/2 ML AMPUL.NEB IH SCH (09:28)
[2017-11-15] MEDS ORDERED: FOSFOMYCIN TROMETHAMINE 3 GM PACKET PO ONE (09:40)
[2017-11-15 11:00] VITALS: BP 106/53
== END 2017-11-15 14:48 | disposition home health service (06) | DRG 698 ==
LOC: ER 01:46 → ED HOLD 04:20 → EDBEDREQ 14:03 → PCU 3S 15:47
PROVIDERS: ADMIT Internal Medicine; ATTEND Internal Medicine
PROC: 02HV33Z Insertion of Infusion Device into Superior Vena Cava, Percutaneous Approach (ICD-10-PCS; principal; 2017-11-15)
PROC: B548ZZA Ultrasonography of Superior Vena Cava, Guidance (ICD-10-PCS; 2017-11-15)
DX: T83.518A Infection and inflammatory reaction due to other urinary catheter, initial encounter (principal); I50.23 Acute on chronic systolic (congestive) heart failure; N39.0 Urinary tract infection, site not specified; N18.3 Chronic kidney disease, stage 3 (moderate); I07.1 Rheumatic tricuspid insufficiency; I25.10 Atherosclerotic heart disease of native coronary artery without angina pectoris; I25.2 Old myocardial infarction; I35.0 Nonrheumatic aortic (valve) stenosis; J44.9 Chronic obstructive pulmonary disease, unspecified; I95.9 Hypotension, unspecified; K59.00 Constipation, unspecified; L98.7 Excessive and redundant skin and subcutaneous tissue; B96.20 Unspecified Escherichia coli [E. coli] as the cause of diseases classified elsewhere; Z16.24 Resistance to multiple antibiotics; G89.29 Other chronic pain; M19.90 Unspecified osteoarthritis, unspecified site; Z88.1 Allergy status to other antibiotic agents; Z90.49 Acquired absence of other specified parts of digestive tract; Z88.0 Allergy status to penicillin; Z88.5 Allergy status to narcotic agent; Z88.8 Allergy status to other drugs, medicaments and biological substances; Z91.048 Other nonmedicinal substance allergy status; Z79.899 Other long term (current) drug therapy; Z95.0 Presence of cardiac pacemaker
CPT/HCPCS: 36415; 36569; 71045; 76937; 80053; 81001; 83605; 83735; 83880; 84145; 84443; 85025; 85610; 85730; 87040; 87070; 87077; 87088; 87186; 93005; 93306; 94640; 94760; 99285; A4649; A6212; A6213; A6250; A6449; J1250; J2185; J7030; J7614

== ENCOUNTER 2018-01-27 09:02 | Inpatient (IN) | payer MEDICARE, MEDICAID, OTHER ==
[~2018-01-27] VITALS: Ht 180.3 cm; Wt 133.2 kg
[~2018-01-27 09:02] MED LIST changes: -ASCO250T8 PO; -BISA10SU21 PO; +BISA10SU60 RC; -CANNABIDIOL PO; +CYAN1TAB41 PO; -DICL100G15 TOP; +DOBU500I5 IV; -DULR RC; +FLUT1AER; -FLUT1AER INH; +FURO40TA4 PO; +GABA-530 PO; -GABA600T2 PO; +HYDR26CR; -LACT10SO PO; +LACT1CAP65 PO; +LIDO5CRE18; -LIDO700A5 TOP; +LISI-600 PO; -METO-539 PO; +METO50TA7 PO; +MICO5POW6 TOP; +MORP-64 PO; -MORP30TA60 PO; -MYC15CR TOP; +MYCOL30CR TP; +ONDA4TAB9 PO; -OSC500T PO; +SENN-61 PO; +THY15T PO
[2018-01-27] MEDS ORDERED: normal saline 1000ML IV soln IVB ONE (09:20)
[2018-01-27 09:35] LABS: BASOPHILS % (AUTO) 0.1 % (0-1); EOSINOPHILS # (AUTO) 0.1 X10'3 (0-0.9); EOSINOPHILS % (AUTO) 3.1 % (0-6); HEMATOCRIT 26.1 % (42.0-52.0); HEMOGLOBIN 8.9 g/dl (14.0-17.9); LYMPHOCYTES # (AUTO) 0.4 X10'3 (1.1-4.8); MEAN CORPUSCULAR HEMOGLOBIN 31.4 PG (27.0-31.0); MEAN CORPUSCULAR HGB CONC 34.1 % (33.0-36.5); MEAN CORPUSCULAR VOLUME 92.1 FL (78-98); MEAN PLATELET VOLUME 9.5 FL (7.4-10.4); MONOCYTES # (AUTO) 0.2 X10'3 (0-0.9); NEUTROPHILS # (AUTO) 2.9 X10'3 (1.8-7.7); NEUTROPHILS % (AUTO) 78.8 % (42-75); PLATELET COUNT 88 X10'3 (140-440); RED BLOOD COUNT 2.83 X10'6 (4.70-6.10); RED CELL DISTRIBUTION WIDTH 14.8 % (11.5-14.5); WHITE BLOOD COUNT 3.7 X10'3 (4.5-11.0)
[2018-01-27 09:50] LABS: ALANINE AMINOTRANSFERASE 24 U/L (12-78); ALBUMIN 2.4 G/DL (3.4-5.0); ALBUMIN/GLOBULIN RATIO 0.6 (1.1-1.5); ALKALINE PHOSPHATASE 73 IU/L (46-116); ANION GAP 7 (8-16); ASPARTATE AMINO TRANSFERASE 25 U/L (10-37); BILIRUBIN,TOTAL 0.3 MG/DL (0.1-1.0); BLOOD UREA NITROGEN 93 MG/DL (7-18); BUN/CREATININE RATIO 31.5 (5.4-32.0); CALCIUM 8.5 MG/DL (8.5-10.1); CHLORIDE 87 MMOL/L (99-107); CREATININE 2.95 MG/DL (0.60-1.10); GLUCOSE 108 MG/DL (70-104); POTASSIUM 4.4 MMOL/L (3.5-5.1); SODIUM 121 MMOL/L (135-145); TOTAL CARBON DIOXIDE 26.8 MMOL/L (24-32); TOTAL PROTEIN 6.7 G/DL (6.4-8.2); eGFR 21 ML/MIN
[2018-01-27 10:02] LABS: CLARITY,URINE CLOUDY (Clear); COLOR,URINE YELLOW (Yellow); GLUCOSE, URINE NEGATIVE (Neg); KETONES,URINE TRACE mg/dl (Neg); LEUKOCYTE ESTERASE ,URINE MODERATE (Neg); NITRITES, URINE NEGATIVE (Neg); OCCULT BLOOD,URINE SMALL (Neg); PROTEIN,URINE 30 mg/dl (Neg); UROBILINOGEN,URINE 0.2 E.U/dL (0.2-1.0)
[2018-01-27] MEDS ORDERED: DOBUTamine-DoBUTrex 500mg/D5W 250 ML IV SCH (10:05)
[2018-01-27 10:08] LABS: UA COLLECTION TYPE FOLEY CATH
[2018-01-27 10:34] LABS: BACTERIA,URINE 4+ /HPF (Neg); RBC,URINE 0-2 /HPF (0-2); SQUAMOUS EPITHELIAL CELL,UR FEW /LPF (FEW); WBC,URINE TNTC /HPF (0-4)
[2018-01-27 12:32] LABS: OCCULT BLOOD STOOL NEGATIVE (Neg)
[2018-01-27] MEDS ORDERED: FOSFOMYCIN TROMETHAMINE 3 GM PACKET PO ONE (12:40)
[2018-01-27 14:20] LABS: ALBUMIN 2.4 G/DL (3.4-5.0); ANION GAP 6 (8-16); BLOOD UREA NITROGEN 95 MG/DL (7-18); BUN/CREATININE RATIO 33.8 (5.4-32.0); CALCIUM 8.5 MG/DL (8.5-10.1); CHLORIDE 89 MMOL/L (99-107); CREATININE 2.81 MG/DL (0.60-1.10); GLUCOSE 88 MG/DL (70-104); POTASSIUM 4.7 MMOL/L (3.5-5.1); SODIUM 122 MMOL/L (135-145); TOTAL CARBON DIOXIDE 27.4 MMOL/L (24-32); eGFR 22 ML/MIN
[2018-01-27 14:38] LABS: CLARITY,URINE SLIGHTLY CLOUDY (Clear); COLOR,URINE STRAW (Yellow); GLUCOSE, URINE NEGATIVE (Neg); KETONES,URINE NEGATIVE (Neg); LEUKOCYTE ESTERASE ,URINE LARGE (Neg); NITRITES, URINE NEGATIVE (Neg); OCCULT BLOOD,URINE TRACE-LYSED (Neg); PH,URINE 5.5 (4.8-8.0); PROTEIN,URINE NEGATIVE (Neg); UROBILINOGEN,URINE 0.2 E.U/dL (0.2-1.0)
[2018-01-27 14:44] LABS: UA COLLECTION TYPE FOLEY CATH
[2018-01-27 14:54] LABS: BACTERIA,URINE FEW /HPF (Neg); RBC,URINE 0-2 /HPF (0-2); WBC,URINE 0-4 /HPF (0-4)
[2018-01-27 14:55] LABS: AMORPHOUS URATES 2+; MUCUS STRANDS NONE SEEN /LPF (Neg); SQUAMOUS EPITHELIAL CELL,UR FEW /LPF (FEW); TRANSITIONAL EPI CELLS,URINE FEW /HPF
[2018-01-27] MEDS ORDERED: ipratropium/albuterol 3ml nebule NEB PRN (15:40)
[2018-01-27] MEDS ORDERED: potassium Cl 20 mEq SR tablet PO PRN ×2 (15:40)
[2018-01-27] MEDS ORDERED: docusate sod 100mg capsule PO PRN (15:40)
[2018-01-27] MEDS ORDERED: magnesium 4gm in 100ml NS 100 ML IV PRN (15:40)
[2018-01-27] MEDS ORDERED: magnesium 1gm/100ml D5W IVPB 100 ML IV PRN (15:40)
[2018-01-27] MEDS ORDERED: potassium Cl 40MEQ/NS 500ml 500 ML IV PRN ×2 (15:40)
[2018-01-27] MEDS: normal saline 1000ml 1,000 ML IV SCH ×2 (15:58→15:59)
[2018-01-27] MEDS ORDERED: MORP15TA PO (16:40)
[2018-01-27] MEDS ORDERED: METO-539 PO (16:40)
[2018-01-27] MEDS ORDERED: MSC15T PO (16:40)
[2018-01-27] MEDS ORDERED: FLO0.4C PO (16:40)
[2018-01-27] MEDS ORDERED: GABA-532 PO (16:40)
[2018-01-27] MEDS ORDERED: ASCO500C15 PO (16:40)
[2018-01-27] MEDS ORDERED: OXYB5TAB11 PO (16:40)
[2018-01-27] MEDS ORDERED: OSC500T PO (16:42)
[2018-01-27] MEDS ORDERED: CHOL50004 PO (16:42)
[2018-01-27] MEDS ORDERED: LACT1CAP65 PO (16:42)
[2018-01-27] MEDS: morphine 2 MG/ML inj. syringe IV PRN (17:29)
[2018-01-27 17:45] VITALS: BP 126/93
[2018-01-27] MEDS: DOBUTamine-DoBUTrex 500mg/D5W 250 ML IV SCH (18:04)
[2018-01-27 19:00] VITALS: BP 92/61
[2018-01-27 21:00] VITALS: BP 89/50
[2018-01-27] MEDS ORDERED: non-formulary drug (Morphine Sulfate 1 TAB) PO SCH (21:00)
[2018-01-27] MEDS ORDERED: non-formulary drug (Ipratropium Bromide MDI* (Atrovent MDI*) 2 PUFFS) INH SCH (21:00)
[2018-01-27] MEDS: morphine ER 15mg tablet PO SCH (21:00)
[2018-01-27 23:00] VITALS: BP 83/50
[2018-01-28] VITALS (13 sets, daily range): BP systolic 70–94; BP diastolic 37–82
[2018-01-28] MEDS: normal saline 1000ml 1,000 ML IV SCH ×3 (05:30→16:25)
[2018-01-28] MEDS ORDERED: ipratropium 0.5 MG/2.5ML nebule IH SCH (07:00)
[2018-01-28] MEDS ORDERED: albuterol 2.5 MG/3 ML nebule NEB SCH (07:00)
[2018-01-28] MEDS: lactobacillus rhamnosus 10,000 MMU CELLS/CAPSULE PO SCH ×2 (07:20→20:32)
[2018-01-28] MEDS: calcium carbonate 500mg tablet PO SCH (07:20)
[2018-01-28] MEDS: folic acid 1mg tablet PO SCH (07:20)
[2018-01-28] MEDS: cyanocobalamin 500mcg tablet PO SCH (07:20)
[2018-01-28] MEDS: tamsulosin 0.4mg capsule PO SCH (07:20)
[2018-01-28] MEDS: thyroid, pork 30mg tablet PO SCH (07:21)
[2018-01-28] MEDS: ascorbic acid 500mg tablet PO SCH (07:21)
[2018-01-28] MEDS: oxybutynin 5mg tablet PO SCH ×2 (07:21→20:32)
[2018-01-28] MEDS: vitamin D (cholecalciferol) 1,000 unit tablet PO SCH ×2 (07:21→20:32)
[2018-01-28] MEDS: nystatin/triamcinolone cream 15gm TP SCH ×2 (07:24→20:00)
[2018-01-28] MEDS: morphine ER 15mg tablet PO SCH ×3 (07:24→21:00)
[2018-01-28] MEDS: FEBUXOSTAT 80 MG PO SCH (07:24)
[2018-01-28] MEDS: metoprolol succinate 25mg (24-HOUR) SR. Tablet PO SCH ×2 (07:24→20:00)
[2018-01-28 07:28] LABS: BASOPHILS % (AUTO) 0.5 % (0-1); EOSINOPHILS # (AUTO) 0.1 X10'3 (0-0.9); EOSINOPHILS % (AUTO) 3.3 % (0-6); HEMATOCRIT 26.1 % (42.0-52.0); HEMOGLOBIN 8.9 g/dl (14.0-17.9); LYMPHOCYTES # (AUTO) 0.6 X10'3 (1.1-4.8); LYMPHOCYTES % (AUTO) 21.8 % (21-51); MEAN CORPUSCULAR HEMOGLOBIN 31.4 PG (27.0-31.0); MEAN CORPUSCULAR HGB CONC 34.1 % (33.0-36.5); MEAN CORPUSCULAR VOLUME 92.2 FL (78-98); MEAN PLATELET VOLUME 10.1 FL (7.4-10.4); MONOCYTES # (AUTO) 0.2 X10'3 (0-0.9); MONOCYTES % (AUTO) 8.4 % (2-12); NEUTROPHILS # (AUTO) 1.7 X10'3 (1.8-7.7); PLATELET COUNT 83 X10'3 (140-440); RED BLOOD COUNT 2.83 X10'6 (4.70-6.10); RED CELL DISTRIBUTION WIDTH 14.9 % (11.5-14.5); WHITE BLOOD COUNT 2.6 X10'3 (4.5-11.0)
[2018-01-28 07:46] LABS: TOTAL CELLS COUNTED 100
[2018-01-28 07:47] LABS: PLATELET ESTIMATE DECREASED
[2018-01-28 07:51] LABS: ALANINE AMINOTRANSFERASE 24 U/L (12-78); ALBUMIN 2.3 G/DL (3.4-5.0); ALBUMIN/GLOBULIN RATIO 0.6 (1.1-1.5); ALKALINE PHOSPHATASE 58 IU/L (46-116); ANION GAP 8 (8-16); ASPARTATE AMINO TRANSFERASE 24 U/L (10-37); BILIRUBIN,TOTAL 0.2 MG/DL (0.1-1.0); BLOOD UREA NITROGEN 86 MG/DL (7-18); BUN/CREATININE RATIO 33.1 (5.4-32.0); CALCIUM 8.1 MG/DL (8.5-10.1); CHLORIDE 92 MMOL/L (99-107); GLUCOSE 73 MG/DL (70-104); MAGNESIUM 2.2 MG/DL (1.5-2.4); POTASSIUM 4.5 MMOL/L (3.5-5.1); SODIUM 125 MMOL/L (135-145); TOTAL CARBON DIOXIDE 24.7 MMOL/L (24-32); TOTAL PROTEIN 6.2 G/DL (6.4-8.2); eGFR 24 ML/MIN
[2018-01-28] MEDS ORDERED: CYANOCOBALAMIN PO SCH (08:00)
[2018-01-28] MEDS ORDERED: folic acid 1mg tablet PO SCH (08:00)
[2018-01-28] MEDS: K and/or MAG REPLACEMENT MC SCH (08:00)
[2018-01-28] MEDS ORDERED: non-formulary drug (Fluticasone/Vilanterol (Breo Ellipta 100-25 Mcg INH) 1 PUFF) SCH (08:00)
[2018-01-28] MEDS ORDERED: THYROID PO SCH (08:00)
[2018-01-28] MEDS: budesonide 0.5mg/2ml UD nebule IH SCH ×2 (08:00→19:46)
[2018-01-28] MEDS ORDERED: non-formulary drug (Cholecalciferol (Vitamin D3) 5,000 UNIT) PO SCH (08:00)
[2018-01-28] MEDS ORDERED: non-formulary drug (Ascorbic Acid (Vitamin C) 1 CAP) PO SCH (08:00)
[2018-01-28] MEDS ORDERED: FOLIC ACID PO SCH (08:00)
[2018-01-28] MEDS ORDERED: DOBUTamine/D5W 500mg/250ml premix IV SCH (08:00)
[2018-01-28] MEDS ORDERED: non-formulary drug (Lactobacillus Acidophilus (Probiotic) 1 CAP) PO SCH ×2 (08:00)
[2018-01-28] MEDS ORDERED: [UNRECOGNIZED DRUG - OTHER] PO SCH (08:00)
[2018-01-28] MEDS: ipratropium/albuterol 3ml nebule NEB SCH ×4 (08:16→19:46)
[2018-01-28] MEDS: diphenhydrAMINE 2%/zinc acetate cream TP SCH ×2 (17:41→21:27)
[2018-01-28] MEDS ORDERED: diphenhydrAMINE 2%/zinc acetate cream TP SCH (21:00)
[2018-01-29] VITALS (20 sets, daily range): BP systolic 64–98; BP diastolic 34–54
[2018-01-29] MEDS: acetaminophen 325mg tablet PO PRN (01:50)
[2018-01-29] MEDS: DOBUTamine-DoBUTrex 500mg/D5W 250 ML IV SCH (01:54)
[2018-01-29] MEDS: normal saline 1000ml 1,000 ML IV SCH ×2 (02:25→12:41)
[2018-01-29 05:03] LABS: BASOPHILS % (AUTO) 0.4 % (0-1); EOSINOPHILS # (AUTO) 0.1 X10'3 (0-0.9); EOSINOPHILS % (AUTO) 2.4 % (0-6); HEMATOCRIT 23.3 % (42.0-52.0); HEMOGLOBIN 7.9 g/dl (14.0-17.9); LYMPHOCYTES # (AUTO) 0.5 X10'3 (1.1-4.8); LYMPHOCYTES % (AUTO) 14.7 % (21-51); MEAN CORPUSCULAR HEMOGLOBIN 31.1 PG (27.0-31.0); MEAN CORPUSCULAR HGB CONC 33.8 % (33.0-36.5); MEAN PLATELET VOLUME 9.4 FL (7.4-10.4); MONOCYTES # (AUTO) 0.2 X10'3 (0-0.9); MONOCYTES % (AUTO) 6.6 % (2-12); NEUTROPHILS # (AUTO) 2.5 X10'3 (1.8-7.7); NEUTROPHILS % (AUTO) 75.9 % (42-75); PLATELET COUNT 89 X10'3 (140-440); RED BLOOD COUNT 2.53 X10'6 (4.70-6.10); RED CELL DISTRIBUTION WIDTH 14.7 % (11.5-14.5); WHITE BLOOD COUNT 3.3 X10'3 (4.5-11.0)
[2018-01-29 05:22] LABS: ALANINE AMINOTRANSFERASE 22 U/L (12-78); ALBUMIN 2.1 G/DL (3.4-5.0); ALBUMIN/GLOBULIN RATIO 0.6 (1.1-1.5); ALKALINE PHOSPHATASE 51 IU/L (46-116); ANION GAP 9 (8-16); ASPARTATE AMINO TRANSFERASE 21 U/L (10-37); BILIRUBIN,TOTAL 0.2 MG/DL (0.1-1.0); BLOOD UREA NITROGEN 85 MG/DL (7-18); BUN/CREATININE RATIO 33.2 (5.4-32.0); CALCIUM 8.2 MG/DL (8.5-10.1); CHLORIDE 94 MMOL/L (99-107); CREATININE 2.56 MG/DL (0.60-1.10); GLUCOSE 97 MG/DL (70-104); MAGNESIUM 2.1 MG/DL (1.5-2.4); POTASSIUM 4.2 MMOL/L (3.5-5.1); SODIUM 126 MMOL/L (135-145); TOTAL CARBON DIOXIDE 23.3 MMOL/L (24-32); TOTAL PROTEIN 5.7 G/DL (6.4-8.2); eGFR 24 ML/MIN
[2018-01-29 06:36] LABS: ANISOCYTOSIS 3+; PLATELET ESTIMATE NORMAL
[2018-01-29 06:37] LABS: HYPOCHROMASIA 1+; POLYCHROMASIA 1+
[2018-01-29] MEDS: ipratropium/albuterol 3ml nebule NEB SCH ×4 (07:00→20:14)
[2018-01-29] MEDS: budesonide 0.5mg/2ml UD nebule IH SCH ×3 (07:30→20:14)
[2018-01-29] MEDS: K and/or MAG REPLACEMENT MC SCH (08:00)
[2018-01-29] MEDS: metoprolol succinate 25mg (24-HOUR) SR. Tablet PO SCH ×2 (08:00→20:00)
[2018-01-29] MEDS: FEBUXOSTAT 80 MG PO SCH (08:00)
[2018-01-29] MEDS: nystatin/triamcinolone cream 15gm TP SCH ×2 (08:00→21:09)
[2018-01-29] MEDS: tamsulosin 0.4mg capsule PO SCH (08:00)
[2018-01-29] MEDS: morphine ER 15mg tablet PO SCH ×3 (08:00→17:37)
[2018-01-29] MEDS ORDERED: acetaminophen 325mg tablet PO PRN (08:15)
[2018-01-29] MEDS: thyroid, pork 30mg tablet PO SCH (09:04)
[2018-01-29] MEDS: cyanocobalamin 500mcg tablet PO SCH (09:05)
[2018-01-29] MEDS: vitamin D (cholecalciferol) 1,000 unit tablet PO SCH ×2 (09:05→21:01)
[2018-01-29] MEDS: calcium carbonate 500mg tablet PO SCH (09:06)
[2018-01-29] MEDS: lactobacillus rhamnosus 10,000 MMU CELLS/CAPSULE PO SCH ×2 (09:06→21:00)
[2018-01-29] MEDS: ascorbic acid 500mg tablet PO SCH (09:06)
[2018-01-29] MEDS: oxybutynin 5mg tablet PO SCH ×2 (09:06→21:00)
[2018-01-29] MEDS: folic acid 1mg tablet PO SCH (09:06)
[2018-01-29] MEDS: diphenhydrAMINE 2%/zinc acetate cream TP SCH ×3 (09:10→21:02)
[2018-01-29] MEDS ORDERED: morphine ER 15mg tablet PO SCH (18:00)
[2018-01-29] MEDS: sennosides/docusate sodium tablet PO SCH (21:00)
[2018-01-29] MEDS: calcium carbonate 500mg chew tablet PO PRN (22:41)
[2018-01-30] VITALS (12 sets, daily range): BP systolic 88–116; BP diastolic 37–56
[2018-01-30] MEDS: morphine ER 15mg tablet PO SCH ×4 (00:33→23:40)
[2018-01-30] MEDS ORDERED: calcium carbonate 500mg chew tablet PO PRN ×2 (02:00→02:50)
[2018-01-30] MEDS: calcium carbonate 500mg chew tablet PO PRN (02:46)
[2018-01-30] MEDS: ondansetron/PF 4mg/2ml inj IV PRN ×2 (03:28→17:48)
[2018-01-30 05:09] LABS: BASOPHILS % (AUTO) 0.2 % (0-1); EOSINOPHILS # (AUTO) 0.1 X10'3 (0-0.9); EOSINOPHILS % (AUTO) 1.5 % (0-6); HEMATOCRIT 24.4 % (42.0-52.0); HEMOGLOBIN 8.4 g/dl (14.0-17.9); LYMPHOCYTES # (AUTO) 0.3 X10'3 (1.1-4.8); MEAN CORPUSCULAR HEMOGLOBIN 31.6 PG (27.0-31.0); MEAN CORPUSCULAR HGB CONC 34.3 % (33.0-36.5); MEAN CORPUSCULAR VOLUME 92.2 FL (78-98); MEAN PLATELET VOLUME 9.1 FL (7.4-10.4); MONOCYTES # (AUTO) 0.2 X10'3 (0-0.9); MONOCYTES % (AUTO) 5.8 % (2-12); NEUTROPHILS # (AUTO) 2.9 X10'3 (1.8-7.7); NEUTROPHILS % (AUTO) 83.5 % (42-75); PLATELET COUNT 104 X10'3 (140-440); RED BLOOD COUNT 2.65 X10'6 (4.70-6.10); RED CELL DISTRIBUTION WIDTH 15.2 % (11.5-14.5); WHITE BLOOD COUNT 3.4 X10'3 (4.5-11.0)
[2018-01-30 05:29] LABS: ALANINE AMINOTRANSFERASE 22 U/L (12-78); ALBUMIN 2.1 G/DL (3.4-5.0); ALBUMIN/GLOBULIN RATIO 0.6 (1.1-1.5); ALKALINE PHOSPHATASE 50 IU/L (46-116); ANION GAP 8 (8-16); ASPARTATE AMINO TRANSFERASE 19 U/L (10-37); BILIRUBIN,TOTAL 0.3 MG/DL (0.1-1.0); BLOOD UREA NITROGEN 78 MG/DL (7-18); BUN/CREATININE RATIO 35.5 (5.4-32.0); CALCIUM 8.6 MG/DL (8.5-10.1); CHLORIDE 97 MMOL/L (99-107); GLUCOSE 114 MG/DL (70-104); MAGNESIUM 2.2 MG/DL (1.5-2.4); POTASSIUM 4.4 MMOL/L (3.5-5.1); SODIUM 128 MMOL/L (135-145); TOTAL CARBON DIOXIDE 22.9 MMOL/L (24-32); TOTAL PROTEIN 5.9 G/DL (6.4-8.2); eGFR 29 ML/MIN
[2018-01-30] MEDS: ipratropium/albuterol 3ml nebule NEB SCH ×4 (07:28→20:23)
[2018-01-30] MEDS: budesonide 0.5mg/2ml UD nebule IH SCH ×2 (07:28→20:23)
[2018-01-30] MEDS: nystatin/triamcinolone cream 15gm TP SCH ×2 (08:00→20:00)
[2018-01-30] MEDS: metoprolol succinate 25mg (24-HOUR) SR. Tablet PO SCH ×2 (08:00→20:00)
[2018-01-30] MEDS: FEBUXOSTAT 80 MG PO SCH (08:00)
[2018-01-30] MEDS: tamsulosin 0.4mg capsule PO SCH (08:00)
[2018-01-30] MEDS: K and/or MAG REPLACEMENT MC SCH (08:00)
[2018-01-30] MEDS: lactobacillus rhamnosus 10,000 MMU CELLS/CAPSULE PO SCH ×2 (08:29→20:33)
[2018-01-30] MEDS: vitamin D (cholecalciferol) 1,000 unit tablet PO SCH ×2 (08:30→20:34)
[2018-01-30] MEDS: folic acid 1mg tablet PO SCH (08:31)
[2018-01-30] MEDS: calcium carbonate 500mg tablet PO SCH (08:31)
[2018-01-30] MEDS: cyanocobalamin 500mcg tablet PO SCH (08:31)
[2018-01-30] MEDS: ascorbic acid 500mg tablet PO SCH (08:31)
[2018-01-30] MEDS: thyroid, pork 30mg tablet PO SCH (08:32)
[2018-01-30] MEDS: oxybutynin 5mg tablet PO SCH ×2 (08:35→20:34)
[2018-01-30] MEDS: sennosides/docusate sodium tablet PO SCH ×2 (08:35→20:33)
[2018-01-30] MEDS: diphenhydrAMINE 2%/zinc acetate cream TP SCH ×3 (08:36→20:33)
[2018-01-30] MEDS: acetaminophen 325mg tablet PO PRN (12:51)
[2018-01-30] MEDS: DOBUTamine-DoBUTrex 500mg/D5W 250 ML IV SCH (12:53)
[2018-01-30] MEDS: aztreonam inj. 1,000 MG in normal saline 100ml IV soln 100 ML IV SCH (16:19)
[2018-01-30] MEDS: morphine 2 MG/ML inj. syringe IV PRN (18:35)
[2018-01-31] MEDS: ondansetron/PF 4mg/2ml inj IV PRN ×3 (00:40→18:03)
[2018-01-31] MEDS ORDERED: pantoprazole 40 MG vial IV ONE (00:55)
[2018-01-31] MEDS: morphine 2 MG/ML inj. syringe IV PRN ×6 (01:12→21:52)
[2018-01-31] MEDS ORDERED: metoclopramide 5 mg/ml inj IV ONE (01:35)
[2018-01-31 02:03] LABS: GASTRIC OCCULT BLOOD POSITIVE (Neg)
[2018-01-31 03:00] VITALS: BP 121/58
[2018-01-31] MEDS: aztreonam inj. 1,000 MG in normal saline 100ml IV soln 100 ML IV SCH ×2 (05:19→17:58)
[2018-01-31 05:56] LABS: BASOPHILS % (AUTO) 0.1 % (0-1); EOSINOPHILS % (AUTO) 0 % (0-6); HEMOGLOBIN 9.4 g/dl (14.0-17.9); LYMPHOCYTES # (AUTO) 0.4 X10'3 (1.1-4.8); LYMPHOCYTES % (AUTO) 3.9 % (21-51); MEAN CORPUSCULAR HEMOGLOBIN 31.3 PG (27.0-31.0); MEAN CORPUSCULAR HGB CONC 33.6 % (33.0-36.5); MEAN CORPUSCULAR VOLUME 93.3 FL (78-98); MEAN PLATELET VOLUME 9.2 FL (7.4-10.4); MONOCYTES # (AUTO) 0.3 X10'3 (0-0.9); MONOCYTES % (AUTO) 3.4 % (2-12); NEUTROPHILS # (AUTO) 9.2 X10'3 (1.8-7.7); NEUTROPHILS % (AUTO) 92.6 % (42-75); PLATELET COUNT 122 X10'3 (140-440); RED CELL DISTRIBUTION WIDTH 15.1 % (11.5-14.5); WHITE BLOOD COUNT 9.9 X10'3 (4.5-11.0)
[2018-01-31 06:00] VITALS: BP 109/55
[2018-01-31 06:06] LABS: ALANINE AMINOTRANSFERASE 22 U/L (12-78); ALBUMIN 2.3 G/DL (3.4-5.0); ALBUMIN/GLOBULIN RATIO 0.5 (1.1-1.5); ALKALINE PHOSPHATASE 66 IU/L (46-116); ANION GAP 9 (8-16); ASPARTATE AMINO TRANSFERASE 23 U/L (10-37); BILIRUBIN,TOTAL 0.5 MG/DL (0.1-1.0); BLOOD UREA NITROGEN 71 MG/DL (7-18); BUN/CREATININE RATIO 33.5 (5.4-32.0); CALCIUM 9.7 MG/DL (8.5-10.1); CHLORIDE 97 MMOL/L (99-107); CREATININE 2.12 MG/DL (0.60-1.10); GLUCOSE 110 MG/DL (70-104); MAGNESIUM 2.3 MG/DL (1.5-2.4); POTASSIUM 4.6 MMOL/L (3.5-5.1); SODIUM 131 MMOL/L (135-145); TOTAL CARBON DIOXIDE 24.9 MMOL/L (24-32); TOTAL PROTEIN 6.7 G/DL (6.4-8.2); eGFR 30 ML/MIN
[2018-01-31] MEDS: ipratropium/albuterol 3ml nebule NEB SCH ×4 (07:00→19:00)
[2018-01-31] MEDS: budesonide 0.5mg/2ml UD nebule IH SCH ×2 (07:43→20:00)
[2018-01-31] MEDS: calcium carbonate 500mg tablet PO SCH (08:00)
[2018-01-31] MEDS: metoprolol succinate 25mg (24-HOUR) SR. Tablet PO SCH ×2 (08:00→20:00)
[2018-01-31] MEDS: tamsulosin 0.4mg capsule PO SCH (08:00)
[2018-01-31] MEDS: cyanocobalamin 500mcg tablet PO SCH (08:00)
[2018-01-31] MEDS: nystatin/triamcinolone cream 15gm TP SCH ×2 (08:00→20:00)
[2018-01-31] MEDS: oxybutynin 5mg tablet PO SCH ×2 (08:00→20:00)
[2018-01-31] MEDS: folic acid 1mg tablet PO SCH (08:00)
[2018-01-31] MEDS: lactobacillus rhamnosus 10,000 MMU CELLS/CAPSULE PO SCH ×2 (08:00→20:00)
[2018-01-31] MEDS: diphenhydrAMINE 2%/zinc acetate cream TP SCH ×3 (08:00→21:00)
[2018-01-31] MEDS: FEBUXOSTAT 80 MG PO SCH (08:00)
[2018-01-31] MEDS: K and/or MAG REPLACEMENT MC SCH (08:00)
[2018-01-31] MEDS: sennosides/docusate sodium tablet PO SCH ×2 (08:00→20:00)
[2018-01-31] MEDS: ascorbic acid 500mg tablet PO SCH (08:00)
[2018-01-31] MEDS: thyroid, pork 30mg tablet PO SCH (08:00)
[2018-01-31] MEDS: vitamin D (cholecalciferol) 1,000 unit tablet PO SCH ×2 (08:00→20:00)
[2018-01-31] MEDS: morphine ER 15mg tablet PO SCH ×2 (08:28→17:58)
[2018-01-31] MEDS: pantoprazole 40 MG vial IV SCH (08:28)
[2018-01-31] MEDS ORDERED: proCHLORperazine 10 MG/2 ml inj IV ONE (08:40)
[2018-01-31 11:00] VITALS: BP 120/70
[2018-01-31] MEDS: metoclopramide 5 mg/ml inj IV PRN ×2 (14:02→20:18)
[2018-01-31 15:00] VITALS: BP 115/64
[2018-01-31] MEDS ORDERED: tPA-cathflo 2 MG/2 ml IV flush IVF ONE ×2 (15:20)
[2018-01-31 19:00] VITALS: BP 110/65
[2018-01-31] MEDS: furosemide 20 MG/2 ML vial IV SCH (20:17)
[2018-01-31] MEDS: polyvinyl alcohol ophthalmic drops 15ml bottle EACHEYE PRN (21:52)
[2018-01-31 23:00] VITALS: BP 100/62
[2018-02-01] VITALS (9 sets, daily range): BP systolic 109–125; BP diastolic 52–84
[2018-02-01] MEDS: morphine ER 15mg tablet PO SCH ×3 (01:09→17:06)
[2018-02-01] MEDS: aztreonam inj. 1,000 MG in normal saline 100ml IV soln 100 ML IV SCH ×2 (04:13→15:21)
[2018-02-01 06:51] LABS: BASOPHILS % (AUTO) 0.3 % (0-1); EOSINOPHILS # (AUTO) 0.1 X10'3 (0-0.9); EOSINOPHILS % (AUTO) 0.7 % (0-6); HEMATOCRIT 29.1 % (42.0-52.0); HEMOGLOBIN 9.6 g/dl (14.0-17.9); LYMPHOCYTES # (AUTO) 0.7 X10'3 (1.1-4.8); MEAN CORPUSCULAR VOLUME 93.8 FL (78-98); MEAN PLATELET VOLUME 9.2 FL (7.4-10.4); MONOCYTES # (AUTO) 0.4 X10'3 (0-0.9); MONOCYTES % (AUTO) 5.3 % (2-12); NEUTROPHILS # (AUTO) 6.5 X10'3 (1.8-7.7); NEUTROPHILS % (AUTO) 84.7 % (42-75); PLATELET COUNT 131 X10'3 (140-440); RED CELL DISTRIBUTION WIDTH 15.1 % (11.5-14.5); WHITE BLOOD COUNT 7.6 X10'3 (4.5-11.0)
[2018-02-01] MEDS: morphine 2 MG/ML inj. syringe IV PRN ×3 (06:51→21:13)
[2018-02-01] MEDS: polyvinyl alcohol ophthalmic drops 15ml bottle EACHEYE PRN (06:53)
[2018-02-01 06:57] LABS: ALANINE AMINOTRANSFERASE 20 U/L (12-78); ALBUMIN 2.3 G/DL (3.4-5.0); ALBUMIN/GLOBULIN RATIO 0.5 (1.1-1.5); ALKALINE PHOSPHATASE 57 IU/L (46-116); ANION GAP 9 (8-16); ASPARTATE AMINO TRANSFERASE 19 U/L (10-37); BILIRUBIN,TOTAL 0.5 MG/DL (0.1-1.0); BLOOD UREA NITROGEN 76 MG/DL (7-18); BUN/CREATININE RATIO 37.1 (5.4-32.0); CALCIUM 10.1 MG/DL (8.5-10.1); CHLORIDE 101 MMOL/L (99-107); CREATININE 2.05 MG/DL (0.60-1.10); GLUCOSE 95 MG/DL (70-104); MAGNESIUM 2.3 MG/DL (1.5-2.4); POTASSIUM 4.8 MMOL/L (3.5-5.1); SODIUM 134 MMOL/L (135-145); TOTAL CARBON DIOXIDE 24.2 MMOL/L (24-32); TOTAL PROTEIN 6.8 G/DL (6.4-8.2); eGFR 31 ML/MIN
[2018-02-01] MEDS: pantoprazole 40 MG vial IV SCH (07:53)
[2018-02-01] MEDS: cyanocobalamin 500mcg tablet PO SCH (07:56)
[2018-02-01] MEDS: thyroid, pork 30mg tablet PO SCH (07:56)
[2018-02-01] MEDS: folic acid 1mg tablet PO SCH (07:56)
[2018-02-01] MEDS: vitamin D (cholecalciferol) 1,000 unit tablet PO SCH ×2 (07:57→19:57)
[2018-02-01] MEDS: calcium carbonate 500mg tablet PO SCH (07:57)
[2018-02-01] MEDS: ascorbic acid 500mg tablet PO SCH (07:57)
[2018-02-01] MEDS: sennosides/docusate sodium tablet PO SCH ×2 (07:58→19:57)
[2018-02-01] MEDS: oxybutynin 5mg tablet PO SCH ×2 (07:58→19:56)
[2018-02-01] MEDS: metoprolol succinate 25mg (24-HOUR) SR. Tablet PO SCH ×2 (07:59→19:56)
[2018-02-01] MEDS: lactobacillus rhamnosus 10,000 MMU CELLS/CAPSULE PO SCH ×2 (07:59→19:56)
[2018-02-01] MEDS: furosemide 20 MG/2 ML vial IV SCH ×2 (07:59→19:56)
[2018-02-01] MEDS: FEBUXOSTAT 80 MG PO SCH (08:00)
[2018-02-01] MEDS: tamsulosin 0.4mg capsule PO SCH (08:00)
[2018-02-01] MEDS: ipratropium/albuterol 3ml nebule NEB SCH ×4 (08:03→20:39)
[2018-02-01] MEDS: budesonide 0.5mg/2ml UD nebule IH SCH ×2 (08:03→20:39)
[2018-02-01] MEDS: K and/or MAG REPLACEMENT MC SCH (08:08)
[2018-02-01] MEDS: nystatin/triamcinolone cream 15gm TP SCH ×2 (08:12→19:57)
[2018-02-01] MEDS: diphenhydrAMINE 2%/zinc acetate cream TP SCH ×3 (08:12→19:58)
[2018-02-01] MEDS: metoclopramide 5 mg/ml inj IV PRN ×2 (16:31→23:18)
[2018-02-01] MEDS: ondansetron/PF 4mg/2ml inj IV PRN (21:13)
[2018-02-02] VITALS (10 sets, daily range): BP systolic 105–159; BP diastolic 50–108
[2018-02-02] MEDS: polyvinyl alcohol ophthalmic drops 15ml bottle EACHEYE PRN (00:14)
[2018-02-02] MEDS: morphine ER 15mg tablet PO SCH ×3 (00:14→16:15)
[2018-02-02] MEDS: ondansetron/PF 4mg/2ml inj IV PRN ×3 (03:01→16:19)
[2018-02-02] MEDS: metoclopramide 5 mg/ml inj IV PRN ×2 (04:49→12:14)
[2018-02-02] MEDS: aztreonam inj. 1,000 MG in normal saline 100ml IV soln 100 ML IV SCH ×2 (04:49→15:07)
[2018-02-02] MEDS: DOBUTamine-DoBUTrex 500mg/D5W 250 ML IV SCH (04:59)
[2018-02-02] MEDS: morphine 2 MG/ML inj. syringe IV PRN ×2 (05:39→12:47)
[2018-02-02] MEDS: ipratropium/albuterol 3ml nebule NEB SCH ×4 (06:56→19:25)
[2018-02-02] MEDS: budesonide 0.5mg/2ml UD nebule IH SCH ×2 (06:57→19:25)
[2018-02-02] MEDS: thyroid, pork 30mg tablet PO SCH (07:17)
[2018-02-02] MEDS: furosemide 20 MG/2 ML vial IV SCH ×3 (07:17→20:46)
[2018-02-02] MEDS: vitamin D (cholecalciferol) 1,000 unit tablet PO SCH ×2 (07:17→20:45)
[2018-02-02] MEDS: pantoprazole 40mg Tablet.DR PO SCH (07:18)
[2018-02-02] MEDS: cyanocobalamin 500mcg tablet PO SCH (07:18)
[2018-02-02] MEDS: folic acid 1mg tablet PO SCH (07:18)
[2018-02-02] MEDS: sennosides/docusate sodium tablet PO SCH ×2 (07:18→20:45)
[2018-02-02] MEDS: lactobacillus rhamnosus 10,000 MMU CELLS/CAPSULE PO SCH ×2 (07:18→20:45)
[2018-02-02] MEDS: ascorbic acid 500mg tablet PO SCH (07:18)
[2018-02-02] MEDS: calcium carbonate 500mg tablet PO SCH (07:18)
[2018-02-02] MEDS: metoprolol succinate 25mg (24-HOUR) SR. Tablet PO SCH ×2 (07:19→20:45)
[2018-02-02] MEDS: tamsulosin 0.4mg capsule PO SCH (07:19)
[2018-02-02] MEDS: oxybutynin 5mg tablet PO SCH ×2 (07:19→20:45)
[2018-02-02] MEDS: FEBUXOSTAT 80 MG PO SCH (07:19)
[2018-02-02] MEDS: nystatin/triamcinolone cream 15gm TP SCH ×2 (07:24→20:45)
[2018-02-02] MEDS: diphenhydrAMINE 2%/zinc acetate cream TP SCH ×3 (07:25→20:46)
[2018-02-02] MEDS: K and/or MAG REPLACEMENT MC SCH (08:00)
[2018-02-02 08:19] LABS: ALANINE AMINOTRANSFERASE 18 U/L (12-78); ALBUMIN 2.2 G/DL (3.4-5.0); ALBUMIN/GLOBULIN RATIO 0.5 (1.1-1.5); ALKALINE PHOSPHATASE 53 IU/L (46-116); ANION GAP 9 (8-16); ASPARTATE AMINO TRANSFERASE 17 U/L (10-37); BILIRUBIN,TOTAL 0.5 MG/DL (0.1-1.0); BLOOD UREA NITROGEN 78 MG/DL (7-18); BUN/CREATININE RATIO 39.6 (5.4-32.0); CALCIUM 9.8 MG/DL (8.5-10.1); CHLORIDE 103 MMOL/L (99-107); CREATININE 1.97 MG/DL (0.60-1.10); GLUCOSE 98 MG/DL (70-104); MAGNESIUM 2.2 MG/DL (1.5-2.4); POTASSIUM 4.6 MMOL/L (3.5-5.1); SODIUM 136 MMOL/L (135-145); TOTAL CARBON DIOXIDE 23.9 MMOL/L (24-32); TOTAL PROTEIN 6.5 G/DL (6.4-8.2); eGFR 33 ML/MIN
[2018-02-02 08:23] LABS: BASOPHILS % (AUTO) 0.3 % (0-1); EOSINOPHILS # (AUTO) 0.3 X10'3 (0-0.9); EOSINOPHILS % (AUTO) 2.8 % (0-6); HEMATOCRIT 26.8 % (42.0-52.0); LYMPHOCYTES # (AUTO) 0.5 X10'3 (1.1-4.8); LYMPHOCYTES % (AUTO) 5.6 % (21-51); MEAN CORPUSCULAR HEMOGLOBIN 31.2 PG (27.0-31.0); MEAN CORPUSCULAR HGB CONC 33.4 % (33.0-36.5); MEAN CORPUSCULAR VOLUME 93.4 FL (78-98); MEAN PLATELET VOLUME 8.5 FL (7.4-10.4); MONOCYTES # (AUTO) 0.4 X10'3 (0-0.9); MONOCYTES % (AUTO) 4.4 % (2-12); NEUTROPHILS # (AUTO) 8.1 X10'3 (1.8-7.7); NEUTROPHILS % (AUTO) 86.9 % (42-75); PLATELET COUNT 140 X10'3 (140-440); RED BLOOD COUNT 2.87 X10'6 (4.70-6.10); RED CELL DISTRIBUTION WIDTH 15.3 % (11.5-14.5); WHITE BLOOD COUNT 9.4 X10'3 (4.5-11.0)
[2018-02-02] MEDS ORDERED: bisacodyl 10mg suppository rectal RC STA (11:22)
[2018-02-03] VITALS (9 sets, daily range): BP systolic 98–128; BP diastolic 50–75
[2018-02-03] MEDS: morphine ER 15mg tablet PO SCH ×3 (00:05→15:51)
[2018-02-03] MEDS: aztreonam inj. 1,000 MG in normal saline 100ml IV soln 100 ML IV SCH ×2 (03:57→16:44)
[2018-02-03] MEDS: morphine 2 MG/ML inj. syringe IV PRN ×3 (03:58→18:37)
[2018-02-03 05:14] LABS: BASOPHILS % (AUTO) 0.1 % (0-1); EOSINOPHILS # (AUTO) 0.3 X10'3 (0-0.9); EOSINOPHILS % (AUTO) 2.3 % (0-6); HEMATOCRIT 26.3 % (42.0-52.0); HEMOGLOBIN 8.6 g/dl (14.0-17.9); LYMPHOCYTES # (AUTO) 0.6 X10'3 (1.1-4.8); MEAN CORPUSCULAR HEMOGLOBIN 30.8 PG (27.0-31.0); MEAN CORPUSCULAR HGB CONC 32.7 % (33.0-36.5); MEAN CORPUSCULAR VOLUME 94.2 FL (78-98); MEAN PLATELET VOLUME 8.7 FL (7.4-10.4); MONOCYTES # (AUTO) 0.6 X10'3 (0-0.9); MONOCYTES % (AUTO) 4.5 % (2-12); NEUTROPHILS # (AUTO) 11.1 X10'3 (1.8-7.7); NEUTROPHILS % (AUTO) 88.1 % (42-75); PLATELET COUNT 139 X10'3 (140-440); RED BLOOD COUNT 2.79 X10'6 (4.70-6.10); RED CELL DISTRIBUTION WIDTH 14.8 % (11.5-14.5); WHITE BLOOD COUNT 12.6 X10'3 (4.5-11.0)
[2018-02-03 05:36] LABS: ALANINE AMINOTRANSFERASE 19 U/L (12-78); ALBUMIN/GLOBULIN RATIO 0.5 (1.1-1.5); ALKALINE PHOSPHATASE 59 IU/L (46-116); ANION GAP 9 (8-16); ASPARTATE AMINO TRANSFERASE 15 U/L (10-37); BILIRUBIN,TOTAL 0.5 MG/DL (0.1-1.0); BLOOD UREA NITROGEN 81 MG/DL (7-18); BUN/CREATININE RATIO 38.9 (5.4-32.0); CALCIUM 9.6 MG/DL (8.5-10.1); CHLORIDE 102 MMOL/L (99-107); CREATININE 2.08 MG/DL (0.60-1.10); GLUCOSE 99 MG/DL (70-104); POTASSIUM 4.6 MMOL/L (3.5-5.1); SODIUM 135 MMOL/L (135-145); TOTAL CARBON DIOXIDE 24.1 MMOL/L (24-32); TOTAL PROTEIN 6.1 G/DL (6.4-8.2); eGFR 31 ML/MIN
[2018-02-03] MEDS: budesonide 0.5mg/2ml UD nebule IH SCH ×2 (07:18→20:00)
[2018-02-03] MEDS: ipratropium/albuterol 3ml nebule NEB SCH ×4 (07:18→19:00)
[2018-02-03] MEDS: K and/or MAG REPLACEMENT MC SCH (08:00)
[2018-02-03] MEDS: diphenhydrAMINE 2%/zinc acetate cream TP SCH ×3 (08:00→20:23)
[2018-02-03] MEDS: FEBUXOSTAT 80 MG PO SCH (08:00)
[2018-02-03] MEDS: tamsulosin 0.4mg capsule PO SCH (08:00)
[2018-02-03] MEDS: calcium carbonate 500mg tablet PO SCH (08:52)
[2018-02-03] MEDS: vitamin D (cholecalciferol) 1,000 unit tablet PO SCH ×2 (08:52→20:22)
[2018-02-03] MEDS: lactobacillus rhamnosus 10,000 MMU CELLS/CAPSULE PO SCH ×2 (08:53→20:22)
[2018-02-03] MEDS: sennosides/docusate sodium tablet PO SCH ×2 (08:54→20:22)
[2018-02-03] MEDS: folic acid 1mg tablet PO SCH (08:54)
[2018-02-03] MEDS: ascorbic acid 500mg tablet PO SCH (08:54)
[2018-02-03] MEDS: metoprolol succinate 25mg (24-HOUR) SR. Tablet PO SCH ×2 (08:55→20:22)
[2018-02-03] MEDS: oxybutynin 5mg tablet PO SCH ×2 (08:56→20:22)
[2018-02-03] MEDS: polyvinyl alcohol ophthalmic drops 15ml bottle EACHEYE PRN (08:56)
[2018-02-03] MEDS: furosemide 20 MG/2 ML vial IV SCH ×3 (08:57→20:22)
[2018-02-03] MEDS: pantoprazole 40mg Tablet.DR PO SCH (08:59)
[2018-02-03] MEDS: cyanocobalamin 500mcg tablet PO SCH (08:59)
[2018-02-03] MEDS: nystatin/triamcinolone cream 15gm TP SCH ×2 (09:22→20:35)
[2018-02-03] MEDS: thyroid, pork 30mg tablet PO SCH (09:22)
[2018-02-03] MEDS: ondansetron/PF 4mg/2ml inj IV PRN ×2 (11:28→18:01)
[2018-02-03] MEDS: metoclopramide 5 mg/ml inj IV PRN ×2 (13:02→20:33)
[2018-02-03] MEDS: DOBUTamine-DoBUTrex 500mg/D5W 250 ML IV SCH (14:49)
[2018-02-03] MEDS ORDERED: mag hydrox/Alum hydrox/simeth 30ml oral suspension PO PRN (18:30)
[2018-02-03] MEDS ORDERED: bisacodyl 10mg suppository rectal RC PRN (21:25)
[2018-02-04] VITALS (11 sets, daily range): BP systolic 80–109; BP diastolic 43–77
[2018-02-04] MEDS: morphine ER 15mg tablet PO SCH ×3 (00:24→16:00)
[2018-02-04] MEDS: ondansetron/PF 4mg/2ml inj IV PRN ×3 (00:30→15:53)
[2018-02-04] MEDS: aztreonam inj. 1,000 MG in normal saline 100ml IV soln 100 ML IV SCH ×2 (04:30→15:53)
[2018-02-04] MEDS: metoclopramide 5 mg/ml inj IV PRN ×3 (04:30→19:45)
[2018-02-04 05:05] LABS: BASOPHILS % (AUTO) 0.2 % (0-1); EOSINOPHILS # (AUTO) 0.4 X10'3 (0-0.9); EOSINOPHILS % (AUTO) 2.9 % (0-6); HEMATOCRIT 26.2 % (42.0-52.0); HEMOGLOBIN 8.6 g/dl (14.0-17.9); LYMPHOCYTES # (AUTO) 0.5 X10'3 (1.1-4.8); LYMPHOCYTES % (AUTO) 3.5 % (21-51); MEAN CORPUSCULAR HGB CONC 32.8 % (33.0-36.5); MEAN CORPUSCULAR VOLUME 94.4 FL (78-98); MEAN PLATELET VOLUME 8.2 FL (7.4-10.4); MONOCYTES # (AUTO) 0.5 X10'3 (0-0.9); MONOCYTES % (AUTO) 3.7 % (2-12); NEUTROPHILS # (AUTO) 12.3 X10'3 (1.8-7.7); NEUTROPHILS % (AUTO) 89.7 % (42-75); PLATELET COUNT 146 X10'3 (140-440); RED BLOOD COUNT 2.78 X10'6 (4.70-6.10); RED CELL DISTRIBUTION WIDTH 15.3 % (11.5-14.5); WHITE BLOOD COUNT 13.7 X10'3 (4.5-11.0)
[2018-02-04 05:32] LABS: ALANINE AMINOTRANSFERASE 15 U/L (12-78); ALBUMIN/GLOBULIN RATIO 0.5 (1.1-1.5); ALKALINE PHOSPHATASE 57 IU/L (46-116); ANION GAP 8 (8-16); ASPARTATE AMINO TRANSFERASE 14 U/L (10-37); BILIRUBIN,TOTAL 0.4 MG/DL (0.1-1.0); BLOOD UREA NITROGEN 80 MG/DL (7-18); BUN/CREATININE RATIO 38.5 (5.4-32.0); CALCIUM 10.2 MG/DL (8.5-10.1); CHLORIDE 103 MMOL/L (99-107); CREATININE 2.08 MG/DL (0.60-1.10); GLUCOSE 107 MG/DL (70-104); POTASSIUM 4.6 MMOL/L (3.5-5.1); SODIUM 138 MMOL/L (135-145); TOTAL CARBON DIOXIDE 26.6 MMOL/L (24-32); TOTAL PROTEIN 6.4 G/DL (6.4-8.2); eGFR 31 ML/MIN
[2018-02-04] MEDS: furosemide 20 MG/2 ML vial IV SCH ×3 (08:00→19:48)
[2018-02-04] MEDS: K and/or MAG REPLACEMENT MC SCH (08:00)
[2018-02-04] MEDS: diphenhydrAMINE 2%/zinc acetate cream TP SCH ×3 (08:00→19:45)
[2018-02-04] MEDS: FEBUXOSTAT 80 MG PO SCH (08:00)
[2018-02-04] MEDS: metoprolol succinate 25mg (24-HOUR) SR. Tablet PO SCH ×2 (08:00→19:45)
[2018-02-04] MEDS: budesonide 0.5mg/2ml UD nebule IH SCH ×2 (08:07→21:20)
[2018-02-04] MEDS: ipratropium/albuterol 3ml nebule NEB SCH ×4 (08:07→21:20)
[2018-02-04] MEDS: folic acid 1mg tablet PO SCH (08:20)
[2018-02-04] MEDS: pantoprazole 40mg Tablet.DR PO SCH (08:20)
[2018-02-04] MEDS: tamsulosin 0.4mg capsule PO SCH (08:20)
[2018-02-04] MEDS: calcium carbonate 500mg tablet PO SCH (08:20)
[2018-02-04] MEDS: sennosides/docusate sodium tablet PO SCH ×2 (08:20→19:45)
[2018-02-04] MEDS: lactobacillus rhamnosus 10,000 MMU CELLS/CAPSULE PO SCH ×2 (08:20→19:45)
[2018-02-04] MEDS: ascorbic acid 500mg tablet PO SCH (08:20)
[2018-02-04] MEDS: cyanocobalamin 500mcg tablet PO SCH (08:21)
[2018-02-04] MEDS: vitamin D (cholecalciferol) 1,000 unit tablet PO SCH ×2 (08:21→19:45)
[2018-02-04] MEDS: thyroid, pork 30mg tablet PO SCH (08:21)
[2018-02-04] MEDS: oxybutynin 5mg tablet PO SCH ×2 (08:21→19:45)
[2018-02-04] MEDS: polyvinyl alcohol ophthalmic drops 15ml bottle EACHEYE PRN (08:21)
[2018-02-04] MEDS: nystatin/triamcinolone cream 15gm TP SCH ×2 (08:24→19:45)
[2018-02-04] MEDS: morphine 2 MG/ML inj. syringe IV PRN ×2 (11:00→19:52)
[2018-02-04] MEDS: simethicone 80mg chew tab PO SCH ×2 (13:00→19:48)
[2018-02-04] MEDS: NUT.TX.IMPAIRED DIGEST FXN (Ensure Clear) 237 ML PO SCH (18:00)
[2018-02-05] MEDS: ondansetron/PF 4mg/2ml inj IV PRN ×3 (00:36→15:37)
[2018-02-05] MEDS: morphine ER 15mg tablet PO SCH ×2 (00:36→08:20)
[2018-02-05] MEDS: morphine 2 MG/ML inj. syringe IV PRN ×2 (02:20→11:37)
[2018-02-05 03:00] VITALS: BP 100/37
[2018-02-05] MEDS: metoclopramide 5 mg/ml inj IV PRN ×3 (04:15→17:34)
[2018-02-05] MEDS: aztreonam inj. 1,000 MG in normal saline 100ml IV soln 100 ML IV SCH (04:16)
[2018-02-05 07:00] VITALS: BP 100/63
[2018-02-05] MEDS: ipratropium/albuterol 3ml nebule NEB SCH ×2 (07:00→11:00)
[2018-02-05] MEDS: thyroid, pork 30mg tablet PO SCH (07:31)
[2018-02-05] MEDS: metoprolol succinate 25mg (24-HOUR) SR. Tablet PO SCH (07:31)
[2018-02-05] MEDS: cyanocobalamin 500mcg tablet PO SCH (07:32)
[2018-02-05] MEDS: folic acid 1mg tablet PO SCH (07:32)
[2018-02-05] MEDS: ascorbic acid 500mg tablet PO SCH (07:33)
[2018-02-05] MEDS: sennosides/docusate sodium tablet PO SCH (07:34)
[2018-02-05] MEDS: pantoprazole 40mg Tablet.DR PO SCH (07:34)
[2018-02-05] MEDS: oxybutynin 5mg tablet PO SCH (07:34)
[2018-02-05] MEDS: furosemide 20 MG/2 ML vial IV SCH ×2 (07:35→13:32)
[2018-02-05] MEDS: lactobacillus rhamnosus 10,000 MMU CELLS/CAPSULE PO SCH (07:35)
[2018-02-05] MEDS: simethicone 80mg chew tab PO SCH ×2 (07:36→13:34)
[2018-02-05] MEDS: NUT.TX.IMPAIRED DIGEST FXN (Ensure Clear) 237 ML PO SCH ×2 (07:36→13:00)
[2018-02-05] MEDS: K and/or MAG REPLACEMENT MC SCH (08:00)
[2018-02-05] MEDS: budesonide 0.5mg/2ml UD nebule IH SCH (08:00)
[2018-02-05] MEDS: FEBUXOSTAT 80 MG PO SCH (08:00)
[2018-02-05] MEDS: tamsulosin 0.4mg capsule PO SCH (08:00)
[2018-02-05] MEDS: vitamin D (cholecalciferol) 1,000 unit tablet PO SCH (08:21)
[2018-02-05] MEDS: diphenhydrAMINE 2%/zinc acetate cream TP SCH ×2 (08:22→13:34)
[2018-02-05] MEDS: nystatin/triamcinolone cream 15gm TP SCH (08:22)
[2018-02-05] MEDS: calcium carbonate 500mg tablet PO SCH (08:22)
[2018-02-05 10:01] LABS: BASOPHILS % (AUTO) 0.3 % (0-1); EOSINOPHILS # (AUTO) 0.2 X10'3 (0-0.9); EOSINOPHILS % (AUTO) 2.6 % (0-6); HEMATOCRIT 25.2 % (42.0-52.0); HEMOGLOBIN 8.3 g/dl (14.0-17.9); LYMPHOCYTES # (AUTO) 0.4 X10'3 (1.1-4.8); LYMPHOCYTES % (AUTO) 4.8 % (21-51); MEAN CORPUSCULAR HEMOGLOBIN 31.2 PG (27.0-31.0); MEAN CORPUSCULAR HGB CONC 32.8 % (33.0-36.5); MEAN CORPUSCULAR VOLUME 95.3 FL (78-98); MEAN PLATELET VOLUME 8.4 FL (7.4-10.4); MONOCYTES # (AUTO) 0.3 X10'3 (0-0.9); MONOCYTES % (AUTO) 3.7 % (2-12); NEUTROPHILS # (AUTO) 8.2 X10'3 (1.8-7.7); NEUTROPHILS % (AUTO) 88.6 % (42-75); PLATELET COUNT 155 X10'3 (140-440); RED BLOOD COUNT 2.65 X10'6 (4.70-6.10); RED CELL DISTRIBUTION WIDTH 15.3 % (11.5-14.5); WHITE BLOOD COUNT 9.3 X10'3 (4.5-11.0)
[2018-02-05 11:35] LABS: ALANINE AMINOTRANSFERASE 13 U/L (12-78); ALBUMIN 1.9 G/DL (3.4-5.0); ALBUMIN/GLOBULIN RATIO 0.4 (1.1-1.5); ALKALINE PHOSPHATASE 57 IU/L (46-116); ANION GAP 7 (8-16); ASPARTATE AMINO TRANSFERASE 12 U/L (10-37); BILIRUBIN,TOTAL 0.4 MG/DL (0.1-1.0); BLOOD UREA NITROGEN 76 MG/DL (7-18); BUN/CREATININE RATIO 41.3 (5.4-32.0); CALCIUM 10.1 MG/DL (8.5-10.1); CHLORIDE 103 MMOL/L (99-107); CREATININE 1.84 MG/DL (0.60-1.10); GLUCOSE 85 MG/DL (70-104); POTASSIUM 4.1 MMOL/L (3.5-5.1); SODIUM 138 MMOL/L (135-145); TOTAL CARBON DIOXIDE 28.3 MMOL/L (24-32); TOTAL PROTEIN 6.2 G/DL (6.4-8.2); eGFR 35 ML/MIN
[2018-02-05] MEDS ORDERED: METO10TA3 PO (13:06)
[2018-02-05] MEDS ORDERED: PANT40TA4 PO (13:06)
[2018-02-05] MEDS ORDERED: MYL80T PO (13:06)
[2018-02-05] MEDS ORDERED: morphine 2 MG/ML inj. syringe IV PRN ×2 (18:05)
== END 2018-02-05 17:45 | disposition home health service (06) | DRG 698 ==
LOC: ER 09:02 → ED HOLD 15:40 → PCU 3S 16:55
PROVIDERS: ADMIT Family Medicine; ATTEND Family Medicine
PROC: BD11YZZ Fluoroscopy of Esophagus using Other Contrast (ICD-10-PCS; principal; 2018-02-04)
DX: T83.511A Infection and inflammatory reaction due to indwelling urethral catheter, initial encounter (principal); A41.9 Sepsis, unspecified organism; E43 Unspecified severe protein-calorie malnutrition; D61.818 Other pancytopenia; E87.1 Hypo-osmolality and hyponatremia; N18.4 Chronic kidney disease, stage 4 (severe); N17.9 Acute kidney failure, unspecified; I50.22 Chronic systolic (congestive) heart failure; I42.9 Cardiomyopathy, unspecified; Z68.41 Body mass index [BMI] 40.0-44.9, adult; B96.20 Unspecified Escherichia coli [E. coli] as the cause of diseases classified elsewhere; I95.9 Hypotension, unspecified; D63.8 Anemia in other chronic diseases classified elsewhere; E03.9 Hypothyroidism, unspecified; G47.33 Obstructive sleep apnea (adult) (pediatric); I25.10 Atherosclerotic heart disease of native coronary artery without angina pectoris; I48.2 Chronic atrial fibrillation; J44.9 Chronic obstructive pulmonary disease, unspecified; N39.0 Urinary tract infection, site not specified; M19.90 Unspecified osteoarthritis, unspecified site; N40.0 Benign prostatic hyperplasia without lower urinary tract symptoms; E66.01 Morbid (severe) obesity due to excess calories; M10.9 Gout, unspecified; K22.4 Dyskinesia of esophagus; K59.8 Other specified functional intestinal disorders; R21 Rash and other nonspecific skin eruption; Y84.6 Urinary catheterization as the cause of abnormal reaction of the patient, or of later complication, without mention of misadventure at the time of the procedure; Z51.5 Encounter for palliative care; G89.29 Other chronic pain; Z74.01 Bed confinement status; I25.2 Old myocardial infarction; Z90.49 Acquired absence of other specified parts of digestive tract; Z98.42 Cataract extraction status, left eye; Z98.41 Cataract extraction status, right eye; Z99.3 Dependence on wheelchair; Z88.5 Allergy status to narcotic agent; Z88.8 Allergy status to other drugs, medicaments and biological substances; Z88.0 Allergy status to penicillin; Z88.1 Allergy status to other antibiotic agents; Z79.899 Other long term (current) drug therapy; Z86.718 Personal history of other venous thrombosis and embolism
CPT/HCPCS: 36415; 71045; 74176; 74220; 80048; 80053; 81001; 82271; 82272; 83605; 83735; 84145; 84443; 85025; 87040; 87070; 87077; 87088; 87186; 92616; 94640; 94667; 94760; 96360; 96361; 99285; C9113; G0378; J0780; J1250; J1940; J2270; J2405; J2765; J2997; J3490; J7030; J7626

== ENCOUNTER 2018-02-23 17:51 | Inpatient (IN) | payer MEDICARE, MEDICAID, OTHER ==
[~2018-02-23] VITALS: Ht 180.3 cm; Wt 127.3 kg
[~2018-02-23 17:51] MED LIST changes: +ASCO500C15 PO; -BISA10SU60 RC; +CHOL50004 PO; +GABA-532 PO; -HYDR26CR; -LIDO5CRE18; -LISI-600 PO; +METO-539 PO; +METO10TA3 PO; -METO50TA7 PO; -MICO5POW6 TOP; -MORP-64 PO; +MORP15TA PO; +MYL80T PO; -ONDA4TAB9 PO; +OSC500T PO; +OXYB5TAB11 PO; +PANT40TA4 PO; -SENN-61 PO
[2018-02-23 18:52] LABS: BASOPHILS % (AUTO) 0.4 % (0-1); EOSINOPHILS % (AUTO) 0.7 % (0-6); HEMATOCRIT 25.5 % (42.0-52.0); HEMOGLOBIN 8.4 g/dl (14.0-17.9); LYMPHOCYTES # (AUTO) 0.7 X10'3 (1.1-4.8); LYMPHOCYTES % (AUTO) 15.8 % (21-51); MEAN CORPUSCULAR HEMOGLOBIN 30.8 PG (27.0-31.0); MEAN CORPUSCULAR HGB CONC 32.9 % (33.0-36.5); MEAN CORPUSCULAR VOLUME 93.4 FL (78-98); MEAN PLATELET VOLUME 9.8 FL (7.4-10.4); MONOCYTES # (AUTO) 0.4 X10'3 (0-0.9); MONOCYTES % (AUTO) 9.7 % (2-12); NEUTROPHILS # (AUTO) 3.3 X10'3 (1.8-7.7); NEUTROPHILS % (AUTO) 73.4 % (42-75); PLATELET COUNT 122 X10'3 (140-440); RED BLOOD COUNT 2.73 X10'6 (4.70-6.10); RED CELL DISTRIBUTION WIDTH 15.3 % (11.5-14.5); WHITE BLOOD COUNT 4.6 X10'3 (4.5-11.0)
[2018-02-23 19:01] LABS: ALANINE AMINOTRANSFERASE 15 U/L (12-78); ALBUMIN 2.3 G/DL (3.4-5.0); ALBUMIN/GLOBULIN RATIO 0.5 (1.1-1.5); ALKALINE PHOSPHATASE 65 IU/L (46-116); ANION GAP 9 (8-16); ASPARTATE AMINO TRANSFERASE 16 U/L (10-37); BILIRUBIN,TOTAL 0.3 MG/DL (0.1-1.0); BLOOD UREA NITROGEN 60 MG/DL (7-18); BUN/CREATININE RATIO 23.8 (5.4-32.0); CALCIUM 8.6 MG/DL (8.5-10.1); CHLORIDE 88 MMOL/L (99-107); CREATININE 2.52 MG/DL (0.60-1.10); GLUCOSE 83 MG/DL (70-104); POTASSIUM 4.3 MMOL/L (3.5-5.1); SODIUM 122 MMOL/L (135-145); TOTAL PROTEIN 6.9 G/DL (6.4-8.2); eGFR 25 ML/MIN
[2018-02-23] MEDS: DOBUTamine-DoBUTrex 500mg/D5W 250 ML IV SCH ×2 (19:47→19:49)
[2018-02-23] MEDS ORDERED: LISINOPRIL PO (20:09)
[2018-02-23] MEDS ORDERED: MAGNESIUM CHLORIDE PO (20:09)
[2018-02-23] MEDS ORDERED: FEBU80TA PO (20:09)
[2018-02-23] MEDS ORDERED: SENN-162 PO (20:13)
[2018-02-23] MEDS ORDERED: CBD PO (20:13)
[2018-02-23] MEDS ORDERED: temazepam 15mg capsule PO PRN (21:00)
[2018-02-23] MEDS ORDERED: metoclopramide 10mg tablet PO PRN (22:55)
[2018-02-23] MEDS ORDERED: magnesium hydroxide 30ml (MOM) UD suspension PO PRN (23:00)
[2018-02-23] MEDS ORDERED: acetaminophen 650mg rectal suppository RC PRN (23:00)
[2018-02-23] MEDS ORDERED: acetaminophen 325mg tablet PO PRN ×2 (23:00)
[2018-02-23] MEDS ORDERED: bisacodyl 10mg suppository rectal RC PRN (23:00)
[2018-02-23] MEDS ORDERED: metoclopramide 5 mg/ml inj IV PRN (23:00)
[2018-02-23] MEDS ORDERED: mag hydrox/Alum hydrox/simeth 30ml oral suspension PO PRN (23:00)
[2018-02-23] MEDS ORDERED: DOBUTamine-DoBUTrex 500mg/D5W 250 ML IV SCH (23:00)
[2018-02-23] MEDS ORDERED: HYDROmorphone 1 mg/ml syringe IV PRN (23:00)
[2018-02-23] MEDS ORDERED: diphenhydrAMINE 25mg capsule PO PRN (23:00)
[2018-02-23] MEDS ORDERED: diphenhydrAMINE 50 mg/ml inj IV PRN (23:00)
[2018-02-23 23:26] LABS: HEMOGLOBIN A1C 4.8 % (4.5-6.2)
[2018-02-23 23:34] LABS: MAGNESIUM 1.8 MG/DL (1.5-2.4); PHOSPHORUS 4.6 MG/DL (2.3-4.5)
[2018-02-23] MEDS: albumin (human) 25% 100ml IV 100 ML IV SCH (23:53)
[2018-02-24] VITALS (8 sets, daily range): BP systolic 87–108; BP diastolic 45–57
[2018-02-24 00:04] LABS: INR 1.1 INR; PARTIAL THROMBOPLASTIN TIME 41 SECONDS (22-32); PROTHROMBIN TIME 11.1 SECONDS (9.0-12.0)
[2018-02-24] MEDS ORDERED: DOPamine 400mg/D5W 250ml 250 ML IV SCH (02:50)
[2018-02-24] MEDS: DOBUTamine-DoBUTrex 500mg/D5W 250 ML IV SCH ×3 (06:07→21:38)
[2018-02-24] MEDS: NORepinephrine 8mg/ 250ml NS 250 ML IV PRN ×2 (06:22→18:46)
[2018-02-24] MEDS ORDERED: thyroid, pork 30mg tablet PO SCH (07:30)
[2018-02-24] MEDS: tamsulosin 0.4mg capsule PO SCH (08:00)
[2018-02-24] MEDS: albumin (human) 25% 100ml IV 100 ML IV SCH (08:00)
[2018-02-24] MEDS: Febuxostat (Uloric) 40MG TAB PO SCH (08:00)
[2018-02-24] MEDS ORDERED: furosemide 10 MG/1 ML 10ml inj IV SCH ×2 (08:00→17:26)
[2018-02-24] MEDS ORDERED: metoprolol succinate 25mg (24-HOUR) SR. Tablet PO SCH (08:00)
[2018-02-24] MEDS: gabapentin 100mg capsule PO SCH ×3 (08:01→21:34)
[2018-02-24] MEDS: docusate sod 100mg capsule PO SCH ×2 (08:01→20:00)
[2018-02-24] MEDS: nystatin/triamcinolone cream 15gm TP SCH ×2 (08:01→20:00)
[2018-02-24] MEDS: oxybutynin 5mg tablet PO SCH ×3 (08:01→21:34)
[2018-02-24] MEDS: pantoprazole 40mg Tablet.DR PO SCH (08:01)
[2018-02-24] MEDS: thyroid, pork 30mg tablet PO SCH (08:02)
[2018-02-24 09:34] LABS: BASOPHILS % (AUTO) 0.2 % (0-1); EOSINOPHILS % (AUTO) 0.2 % (0-6); HEMATOCRIT 23.2 % (42.0-52.0); HEMOGLOBIN 7.8 g/dl (14.0-17.9); LYMPHOCYTES # (AUTO) 0.4 X10'3 (1.1-4.8); LYMPHOCYTES % (AUTO) 8.1 % (21-51); MEAN CORPUSCULAR HEMOGLOBIN 30.9 PG (27.0-31.0); MEAN CORPUSCULAR HGB CONC 33.4 % (33.0-36.5); MEAN CORPUSCULAR VOLUME 92.7 FL (78-98); MEAN PLATELET VOLUME 9.9 FL (7.4-10.4); MONOCYTES # (AUTO) 0.3 X10'3 (0-0.9); MONOCYTES % (AUTO) 6.2 % (2-12); NEUTROPHILS # (AUTO) 3.8 X10'3 (1.8-7.7); NEUTROPHILS % (AUTO) 85.3 % (42-75); PLATELET COUNT 93 X10'3 (140-440); RED BLOOD COUNT 2.51 X10'6 (4.70-6.10); RED CELL DISTRIBUTION WIDTH 14.9 % (11.5-14.5); WHITE BLOOD COUNT 4.4 X10'3 (4.5-11.0)
[2018-02-24 09:57] LABS: ALANINE AMINOTRANSFERASE 14 U/L (12-78); ALBUMIN 2.6 G/DL (3.4-5.0); ALBUMIN/GLOBULIN RATIO 0.7 (1.1-1.5); ALKALINE PHOSPHATASE 66 IU/L (46-116); ANION GAP 9 (8-16); ASPARTATE AMINO TRANSFERASE 16 U/L (10-37); BILIRUBIN,TOTAL 0.5 MG/DL (0.1-1.0); BLOOD UREA NITROGEN 61 MG/DL (7-18); CALCIUM 8.3 MG/DL (8.5-10.1); CHLORIDE 86 MMOL/L (99-107); CREATININE 2.65 MG/DL (0.60-1.10); GLUCOSE 122 MG/DL (70-104); POTASSIUM 4.2 MMOL/L (3.5-5.1); TOTAL CARBON DIOXIDE 23.8 MMOL/L (24-32); TOTAL PROTEIN 6.6 G/DL (6.4-8.2); TROPONIN I < 0.04 NG/ML (0.0-0.05); eGFR 23 ML/MIN
[2018-02-24 10:01] LABS: SODIUM 119 MMOL/L (135-145)
[2018-02-24 15:22] LABS: ALBUMIN 2.5 G/DL (3.4-5.0); ANION GAP 6 (8-16); BLOOD UREA NITROGEN 59 MG/DL (7-18); BUN/CREATININE RATIO 22.3 (5.4-32.0); CALCIUM 8.5 MG/DL (8.5-10.1); CHLORIDE 86 MMOL/L (99-107); CREATININE 2.65 MG/DL (0.60-1.10); GLUCOSE 103 MG/DL (70-104); POTASSIUM 4.3 MMOL/L (3.5-5.1); TOTAL CARBON DIOXIDE 25.6 MMOL/L (24-32); eGFR 23 ML/MIN
[2018-02-24 15:24] LABS: SODIUM 118 MMOL/L (135-145)
[2018-02-24] MEDS ORDERED: non-formulary drug (Morphine Sulfate 1 TAB) PO SCH (17:00)
[2018-02-24] MEDS: furosemide 10 MG/1 ML 10ml inj IV SCH (17:41)
[2018-02-24] MEDS ORDERED: bumetanide 1mg tablet PO SCH ×2 (20:00)
[2018-02-24] MEDS: ipratropium 0.5 MG/2.5ML nebule IH SCH (20:00)
[2018-02-24] MEDS ORDERED: metoprolol tartrate 12.5mg (1/2 tablet) PO SCH (20:00)
[2018-02-24] MEDS ORDERED: furosemide 40mg tablet PO SCH (20:00)
[2018-02-24] MEDS ORDERED: CBD PO SCH (21:00)
[2018-02-24] MEDS: gabapentin 300mg capsule PO SCH (21:34)
[2018-02-24] MEDS: lactobacillus rhamnosus 10,000 MMU CELLS/CAPSULE PO SCH (21:34)
[2018-02-24] MEDS: simethicone 80mg chew tab PO SCH (21:35)
[2018-02-24] MEDS: magnesium Cl slow-release 64mg tablet PO SCH (21:35)
[2018-02-25] VITALS (24 sets, daily range): BP systolic 80–115; BP diastolic 37–59
[2018-02-25] MEDS: DOBUTamine-DoBUTrex 500mg/D5W 250 ML IV SCH ×3 (01:49→13:10)
[2018-02-25] MEDS: ipratropium 0.5 MG/2.5ML nebule IH SCH ×4 (03:27→20:06)
[2018-02-25 05:12] LABS: BASOPHILS % (AUTO) 0.4 % (0-1); EOSINOPHILS # (AUTO) 0.1 X10'3 (0-0.9); EOSINOPHILS % (AUTO) 1.7 % (0-6); HEMATOCRIT 24.1 % (42.0-52.0); HEMOGLOBIN 8.1 g/dl (14.0-17.9); LYMPHOCYTES # (AUTO) 0.5 X10'3 (1.1-4.8); LYMPHOCYTES % (AUTO) 10.1 % (21-51); MEAN CORPUSCULAR HEMOGLOBIN 31.2 PG (27.0-31.0); MEAN CORPUSCULAR HGB CONC 33.4 % (33.0-36.5); MEAN CORPUSCULAR VOLUME 93.5 FL (78-98); MEAN PLATELET VOLUME 9.7 FL (7.4-10.4); MONOCYTES # (AUTO) 0.4 X10'3 (0-0.9); MONOCYTES % (AUTO) 8.6 % (2-12); NEUTROPHILS # (AUTO) 3.6 X10'3 (1.8-7.7); NEUTROPHILS % (AUTO) 79.2 % (42-75); PLATELET COUNT 106 X10'3 (140-440); RED BLOOD COUNT 2.58 X10'6 (4.70-6.10); RED CELL DISTRIBUTION WIDTH 14.6 % (11.5-14.5); WHITE BLOOD COUNT 4.5 X10'3 (4.5-11.0)
[2018-02-25] MEDS: HYDROcodone/acetaminophen 10/325mg tab PO PRN ×2 (05:14→12:35)
[2018-02-25 05:24] LABS: ALANINE AMINOTRANSFERASE 13 U/L (12-78); ALBUMIN 2.4 G/DL (3.4-5.0); ALBUMIN/GLOBULIN RATIO 0.6 (1.1-1.5); ALKALINE PHOSPHATASE 68 IU/L (46-116); ANION GAP 7 (8-16); ASPARTATE AMINO TRANSFERASE 17 U/L (10-37); BILIRUBIN,TOTAL 0.5 MG/DL (0.1-1.0); BLOOD UREA NITROGEN 58 MG/DL (7-18); BUN/CREATININE RATIO 24.9 (5.4-32.0); CALCIUM 8.3 MG/DL (8.5-10.1); CHLORIDE 88 MMOL/L (99-107); CREATININE 2.33 MG/DL (0.60-1.10); GLUCOSE 102 MG/DL (70-104); TOTAL CARBON DIOXIDE 24.8 MMOL/L (24-32); TOTAL PROTEIN 6.4 G/DL (6.4-8.2); eGFR 27 ML/MIN
[2018-02-25 05:25] LABS: SODIUM 120 MMOL/L (135-145)
[2018-02-25] MEDS: albuterol 2.5 MG/3 ML nebule NEB SCH ×4 (07:42→20:06)
[2018-02-25] MEDS: BUDESONIDE 0.25 MG/2 ML AMPUL.NEB IH SCH ×2 (07:42→20:06)
[2018-02-25] MEDS ORDERED: DOBUTamine/D5W 500mg/250ml premix IV SCH (08:00)
[2018-02-25] MEDS: Febuxostat (Uloric) 40MG TAB PO SCH (08:00)
[2018-02-25] MEDS ORDERED: FEBUXOSTAT 80 MG PO SCH (08:00)
[2018-02-25] MEDS: nystatin/triamcinolone cream 15gm TP SCH ×2 (08:00→20:38)
[2018-02-25] MEDS: sennosides 8.6mg tablet PO SCH (08:45)
[2018-02-25] MEDS: folic acid 1mg tablet PO SCH (08:46)
[2018-02-25] MEDS: tamsulosin 0.4mg capsule PO SCH (08:46)
[2018-02-25] MEDS: magnesium Cl slow-release 64mg tablet PO SCH ×2 (08:46→20:37)
[2018-02-25] MEDS: simethicone 80mg chew tab PO SCH ×3 (08:46→20:36)
[2018-02-25] MEDS: lactobacillus rhamnosus 10,000 MMU CELLS/CAPSULE PO SCH ×2 (08:46→20:36)
[2018-02-25] MEDS: calcium carbonate 500mg tablet PO SCH (08:46)
[2018-02-25] MEDS: oxybutynin 5mg tablet PO SCH ×3 (08:46→20:36)
[2018-02-25] MEDS: gabapentin 100mg capsule PO SCH ×3 (08:46→20:36)
[2018-02-25] MEDS: docusate sod 100mg capsule PO SCH ×2 (08:46→20:36)
[2018-02-25] MEDS: vitamin B comp w/Vit. C tab 1 TAB TABLET PO SCH (08:47)
[2018-02-25] MEDS: albumin (human) 25% 100ml IV 100 ML IV SCH (08:47)
[2018-02-25] MEDS: pantoprazole 40mg Tablet.DR PO SCH (08:47)
[2018-02-25] MEDS: furosemide 10 MG/1 ML 10ml inj IV SCH ×2 (08:48→20:37)
[2018-02-25 09:07] LABS: MAGNESIUM 1.6 MG/DL (1.5-2.4)
[2018-02-25] MEDS: ondansetron/PF 4mg/2ml inj IV PRN ×2 (09:24→18:47)
[2018-02-25] MEDS: morphine 2 MG/ML inj. syringe IV PRN (09:25)
[2018-02-25] MEDS: thyroid, pork 30mg tablet PO SCH ×2 (09:25→09:26)
[2018-02-25 09:35] LABS: ALBUMIN 2.5 G/DL (3.4-5.0); ANION GAP 10 (8-16); BLOOD UREA NITROGEN 59 MG/DL (7-18); BUN/CREATININE RATIO 24.7 (5.4-32.0); CALCIUM 8.4 MG/DL (8.5-10.1); CHLORIDE 87 MMOL/L (99-107); CREATININE 2.39 MG/DL (0.60-1.10); GLUCOSE 110 MG/DL (70-104); POTASSIUM 4.3 MMOL/L (3.5-5.1); SODIUM 121 MMOL/L (135-145); TOTAL CARBON DIOXIDE 24.1 MMOL/L (24-32); eGFR 26 ML/MIN
[2018-02-25 11:01] LABS: OSMOLALITY 276 MOSM/K (280-300)
[2018-02-25] MEDS: NORepinephrine 8mg/ 250ml NS 250 ML IV PRN ×2 (12:36→19:53)
[2018-02-25 17:52] LABS: ALBUMIN 2.7 G/DL (3.4-5.0); ANION GAP 8 (8-16); BLOOD UREA NITROGEN 57 MG/DL (7-18); BUN/CREATININE RATIO 24.8 (5.4-32.0); CALCIUM 8.5 MG/DL (8.5-10.1); CHLORIDE 88 MMOL/L (99-107); GLUCOSE 114 MG/DL (70-104); POTASSIUM 4.2 MMOL/L (3.5-5.1); SODIUM 123 MMOL/L (135-145); TOTAL CARBON DIOXIDE 26.9 MMOL/L (24-32); eGFR 27 ML/MIN
[2018-02-25] MEDS: gabapentin 300mg capsule PO SCH (20:36)
[2018-02-26] VITALS (24 sets, daily range): BP systolic 88–114; BP diastolic 40–56
[2018-02-26] MEDS: ondansetron/PF 4mg/2ml inj IV PRN ×2 (00:24→12:20)
[2018-02-26] MEDS: morphine 2 MG/ML inj. syringe IV PRN ×4 (00:25→21:36)
[2018-02-26] MEDS ORDERED: metoclopramide 5 mg/ml inj IV ONE (02:00)
[2018-02-26] MEDS: NORepinephrine 8mg/ 250ml NS 250 ML IV PRN ×3 (02:17→15:59)
[2018-02-26] MEDS: DOBUTamine-DoBUTrex 500mg/D5W 250 ML IV SCH ×2 (02:18→15:52)
[2018-02-26] MEDS: ipratropium 0.5 MG/2.5ML nebule IH SCH ×2 (02:20→07:42)
[2018-02-26 06:02] LABS: ALBUMIN 2.6 G/DL (3.4-5.0); ALBUMIN/GLOBULIN RATIO 0.7 (1.1-1.5); ALKALINE PHOSPHATASE 61 IU/L (46-116); ANION GAP 9 (8-16); ASPARTATE AMINO TRANSFERASE 14 U/L (10-37); BILIRUBIN,TOTAL 0.6 MG/DL (0.1-1.0); BLOOD UREA NITROGEN 57 MG/DL (7-18); CHLORIDE 90 MMOL/L (99-107); SODIUM 125 MMOL/L (135-145); TOTAL PROTEIN 6.6 G/DL (6.4-8.2)
[2018-02-26 06:25] LABS: HEMOGLOBIN 8.8 g/dl (14.0-17.9); RED BLOOD COUNT 2.68 X10'6 (4.70-6.10); WHITE BLOOD COUNT 6.1 X10'3 (4.5-11.0)
[2018-02-26 06:26] LABS: BASOPHILS % (AUTO) 0 % (0-1); EOSINOPHILS % (AUTO) 0.5 % (0-6); HEMATOCRIT 24.8 % (42.0-52.0); LYMPHOCYTES # (AUTO) 0.4 X10'3 (1.1-4.8); LYMPHOCYTES % (AUTO) 7.4 % (21-51); MEAN CORPUSCULAR HEMOGLOBIN 32.7 PG (27.0-31.0); MEAN CORPUSCULAR HGB CONC 35.3 % (33.0-36.5); MEAN CORPUSCULAR VOLUME 92.6 FL (78-98); MEAN PLATELET VOLUME 9.8 FL (7.4-10.4); MONOCYTES # (AUTO) 0.4 X10'3 (0-0.9); MONOCYTES % (AUTO) 6.1 % (2-12); NEUTROPHILS % (AUTO) 86 % (42-75); PLATELET COUNT 138 X10'3 (140-440); RED CELL DISTRIBUTION WIDTH 13.6 % (11.5-14.5)
[2018-02-26 06:59] LABS: BUN/CREATININE RATIO 25.6 (5.4-32.0); CALCIUM 9.1 MG/DL (8.5-10.1); CREATININE 2.23 MG/DL (0.60-1.10); GLUCOSE 113 MG/DL (70-104); eGFR 28 ML/MIN
[2018-02-26 07:05] LABS: ALANINE AMINOTRANSFERASE < 6 U/L (12-78)
[2018-02-26] MEDS: thyroid, pork 30mg tablet PO SCH ×2 (07:30)
[2018-02-26] MEDS: BUDESONIDE 0.25 MG/2 ML AMPUL.NEB IH SCH ×2 (07:42→20:04)
[2018-02-26] MEDS: albuterol 2.5 MG/3 ML nebule NEB SCH (07:43)
[2018-02-26] MEDS: calcium carbonate 500mg tablet PO SCH (08:00)
[2018-02-26] MEDS: gabapentin 100mg capsule PO SCH ×3 (08:00→21:00)
[2018-02-26] MEDS: Febuxostat (Uloric) 40MG TAB PO SCH (08:00)
[2018-02-26] MEDS: nystatin/triamcinolone cream 15gm TP SCH ×2 (08:00→20:00)
[2018-02-26] MEDS: simethicone 80mg chew tab PO SCH ×3 (08:00→21:00)
[2018-02-26] MEDS: sennosides 8.6mg tablet PO SCH (08:00)
[2018-02-26] MEDS: magnesium Cl slow-release 64mg tablet PO SCH ×2 (08:00→20:00)
[2018-02-26] MEDS: tamsulosin 0.4mg capsule PO SCH (08:00)
[2018-02-26] MEDS: vitamin B comp w/Vit. C tab 1 TAB TABLET PO SCH (08:00)
[2018-02-26] MEDS: oxybutynin 5mg tablet PO SCH ×3 (08:00→21:00)
[2018-02-26] MEDS: docusate sod 100mg capsule PO SCH ×2 (08:00→20:00)
[2018-02-26] MEDS: lactobacillus rhamnosus 10,000 MMU CELLS/CAPSULE PO SCH ×2 (08:00→20:00)
[2018-02-26] MEDS: pantoprazole 40mg Tablet.DR PO SCH ×2 (08:00→16:49)
[2018-02-26] MEDS: albumin (human) 25% 100ml IV 100 ML IV SCH (08:32)
[2018-02-26] MEDS: furosemide 10 MG/1 ML 10ml inj IV SCH ×2 (09:19→20:00)
[2018-02-26] MEDS: folic acid 1mg tablet PO SCH (12:56)
[2018-02-26] MEDS: ipratropium/albuterol 3ml nebule NEB SCH ×2 (15:00→20:04)
[2018-02-26] MEDS ORDERED: metoclopramide 5 mg/ml inj IV PRN (16:45)
[2018-02-26] MEDS: gabapentin 300mg capsule PO SCH (21:00)
[2018-02-27] VITALS (21 sets, daily range): BP systolic 78–117; BP diastolic 42–57
[2018-02-27] MEDS: DOBUTamine-DoBUTrex 500mg/D5W 250 ML IV SCH (00:34)
[2018-02-27] MEDS: NORepinephrine 8mg/ 250ml NS 250 ML IV PRN ×2 (00:37→08:48)
[2018-02-27] MEDS: ipratropium/albuterol 3ml nebule NEB SCH ×3 (02:33→15:00)
[2018-02-27] MEDS: morphine 2 MG/ML inj. syringe IV PRN ×11 (04:42→23:21)
[2018-02-27 06:22] LABS: BASOPHILS % (AUTO) 0.4 % (0-1); EOSINOPHILS # (AUTO) 0.1 X10'3 (0-0.9); EOSINOPHILS % (AUTO) 1.5 % (0-6); HEMATOCRIT 23.8 % (42.0-52.0); LYMPHOCYTES # (AUTO) 0.7 X10'3 (1.1-4.8); LYMPHOCYTES % (AUTO) 8.6 % (21-51); MEAN CORPUSCULAR HEMOGLOBIN 31.5 PG (27.0-31.0); MEAN CORPUSCULAR HGB CONC 33.8 % (33.0-36.5); MEAN CORPUSCULAR VOLUME 93.1 FL (78-98); MEAN PLATELET VOLUME 8.9 FL (7.4-10.4); MONOCYTES # (AUTO) 0.5 X10'3 (0-0.9); MONOCYTES % (AUTO) 6.8 % (2-12); NEUTROPHILS # (AUTO) 6.3 X10'3 (1.8-7.7); NEUTROPHILS % (AUTO) 82.7 % (42-75); PLATELET COUNT 130 X10'3 (140-440); RED BLOOD COUNT 2.55 X10'6 (4.70-6.10); RED CELL DISTRIBUTION WIDTH 14.4 % (11.5-14.5); WHITE BLOOD COUNT 7.6 X10'3 (4.5-11.0)
[2018-02-27 06:41] LABS: ALANINE AMINOTRANSFERASE 10 U/L (12-78); ALBUMIN 2.4 G/DL (3.4-5.0); ALBUMIN/GLOBULIN RATIO 0.6 (1.1-1.5); ALKALINE PHOSPHATASE 52 IU/L (46-116); ANION GAP 8 (8-16); ASPARTATE AMINO TRANSFERASE 14 U/L (10-37); BILIRUBIN,TOTAL 0.6 MG/DL (0.1-1.0); BLOOD UREA NITROGEN 55 MG/DL (7-18); BUN/CREATININE RATIO 26.6 (5.4-32.0); CALCIUM 8.8 MG/DL (8.5-10.1); CHLORIDE 95 MMOL/L (99-107); CREATININE 2.07 MG/DL (0.60-1.10); GLUCOSE 110 MG/DL (70-104); POTASSIUM 3.6 MMOL/L (3.5-5.1); SODIUM 130 MMOL/L (135-145); TOTAL CARBON DIOXIDE 26.6 MMOL/L (24-32); TOTAL PROTEIN 6.1 G/DL (6.4-8.2); eGFR 31 ML/MIN
[2018-02-27] MEDS: nystatin/triamcinolone cream 15gm TP SCH (08:00)
[2018-02-27] MEDS: gabapentin 100mg capsule PO SCH ×2 (08:00→12:53)
[2018-02-27] MEDS: lactobacillus rhamnosus 10,000 MMU CELLS/CAPSULE PO SCH (08:00)
[2018-02-27] MEDS: vitamin B comp w/Vit. C tab 1 TAB TABLET PO SCH (08:00)
[2018-02-27] MEDS: sennosides 8.6mg tablet PO SCH (08:00)
[2018-02-27] MEDS: tamsulosin 0.4mg capsule PO SCH (08:00)
[2018-02-27] MEDS: BUDESONIDE 0.25 MG/2 ML AMPUL.NEB IH SCH (08:02)
[2018-02-27] MEDS: albumin (human) 25% 100ml IV 100 ML IV SCH (08:16)
[2018-02-27] MEDS: furosemide 10 MG/1 ML 10ml inj IV SCH (08:18)
[2018-02-27] MEDS: Febuxostat (Uloric) 40MG TAB PO SCH (08:24)
[2018-02-27] MEDS: thyroid, pork 30mg tablet PO SCH ×2 (08:26)
[2018-02-27] MEDS: oxybutynin 5mg tablet PO SCH ×2 (08:27→13:00)
[2018-02-27] MEDS: simethicone 80mg chew tab PO SCH ×2 (08:27→13:00)
[2018-02-27] MEDS: folic acid 1mg tablet PO SCH (08:27)
[2018-02-27] MEDS: docusate sod 100mg capsule PO SCH (08:27)
[2018-02-27] MEDS: pantoprazole 40mg Tablet.DR PO SCH (08:28)
[2018-02-27] MEDS: calcium carbonate 500mg tablet PO SCH (08:28)
[2018-02-27] MEDS: magnesium Cl slow-release 64mg tablet PO SCH (08:28)
[2018-02-27] MEDS: HYDROcodone/acetaminophen 10/325mg tab PO PRN ×2 (09:44→18:05)
[2018-02-27] MEDS ORDERED: morphine 2 MG/ML inj. syringe IV PRN (11:00)
[2018-02-27] MEDS ORDERED: LORazepam 2 mg/ml vial IV PRN (11:00)
[2018-02-27] MEDS ORDERED: diphenhydrAMINE 2%/zinc acetate cream TP PRN (16:45)
[2018-02-27] MEDS ORDERED: gabapentin 300mg capsule PO ONE (20:10)
[2018-02-27] MEDS ORDERED: gabapentin 100mg capsule PO ONE (20:10)
[2018-02-28] MEDS: morphine 2 MG/ML inj. syringe IV PRN ×5 (04:15→12:57)
[2018-02-28] MEDS: diphenhydrAMINE 25mg capsule PO PRN ×3 (04:37→21:02)
[2018-02-28 06:00] VITALS: BP 107/58
[2018-02-28] MEDS: diphenhydrAMINE 2%/zinc acetate cream TP PRN (07:29)
[2018-02-28] MEDS: furosemide 10 MG/1 ML 10ml inj IV SCH ×2 (09:35→20:00)
[2018-02-28 10:00] VITALS: BP 80/43
[2018-02-28] MEDS ORDERED: metoclopramide 5 mg/ml inj IV PRN (14:35)
[2018-02-28] MEDS ORDERED: diphenhydrAMINE 50 mg/ml inj IV PRN (15:15)
[2018-02-28] MEDS ORDERED: acetaminophen 325mg tablet PO PRN (15:20)
[2018-02-28] MEDS: morphine 4 MG/ML inj SYRINge IV PRN ×5 (15:50→23:36)
[2018-02-28] MEDS: BUDESONIDE 0.25 MG/2 ML AMPUL.NEB IH SCH (20:00)
[2018-02-28] MEDS: albuterol 2.5 MG/3 ML nebule NEB SCH (20:00)
[2018-02-28] MEDS: sennosides 8.6mg tablet PO SCH (20:51)
[2018-02-28] MEDS: oxybutynin 5mg tablet PO SCH (20:51)
[2018-02-28] MEDS: tamsulosin 0.4mg capsule PO SCH (20:52)
[2018-02-28] MEDS: gabapentin 300mg capsule PO SCH (20:52)
[2018-02-28] MEDS: gabapentin 100mg capsule PO SCH (20:52)
[2018-02-28] MEDS: ipratropium/albuterol 3ml nebule NEB SCH (20:59)
[2018-02-28] MEDS: Febuxostat (Uloric) 40MG TAB PO SCH (21:51)
[2018-02-28 22:00] VITALS: BP 88/44
[2018-03-01] MEDS: morphine 4 MG/ML inj SYRINge IV PRN ×7 (01:13→09:11)
[2018-03-01] MEDS: ipratropium/albuterol 3ml nebule NEB SCH ×3 (03:03→20:43)
[2018-03-01 03:30] VITALS: BP 90/45
[2018-03-01] MEDS: diphenhydrAMINE 25mg capsule PO PRN ×2 (04:32→11:00)
[2018-03-01] MEDS: diphenhydrAMINE 2%/zinc acetate cream TP PRN (04:32)
[2018-03-01] MEDS: albuterol 2.5 MG/3 ML nebule NEB SCH ×2 (07:00→19:00)
[2018-03-01] MEDS: oxybutynin 5mg tablet PO SCH ×3 (07:12→20:54)
[2018-03-01] MEDS: gabapentin 100mg capsule PO SCH ×3 (07:12→20:54)
[2018-03-01] MEDS: furosemide 10 MG/1 ML 10ml inj IV SCH ×2 (07:13→20:53)
[2018-03-01] MEDS: BUDESONIDE 0.25 MG/2 ML AMPUL.NEB IH SCH ×2 (08:00→20:43)
[2018-03-01] MEDS ORDERED: CADD PCA waste documentation MC PRN (09:20)
[2018-03-01] MEDS ORDERED: naloxone 0.4 mg/ml inj IV PRN ×2 (09:20→17:30)
[2018-03-01 10:00] VITALS: BP 81/41
[2018-03-01] MEDS: morphine/NS 5 mg/ml CADD 50 ML IV SCH ×7 (10:20→22:44)
[2018-03-01] MEDS: morphine 2 MG/ML inj. syringe IV PRN (11:04)
[2018-03-01] MEDS ORDERED: benzocaine/menthol oral lozeng 1 EACH BOX MM PRN (12:20)
[2018-03-01] MEDS ORDERED: scopolamine 1.5mg patch.TD72 TD PRN (17:45)
[2018-03-01] MEDS ORDERED: LORazepam 2 mg/ml vial IV PRN (18:00)
[2018-03-01] MEDS ORDERED: levoFLOXACIN-Levaquin 250mg/D5 50 ML IV SCH (19:10)
[2018-03-01] MEDS: sennosides 8.6mg tablet PO SCH (20:53)
[2018-03-01] MEDS: gabapentin 300mg capsule PO SCH (20:54)
[2018-03-01] MEDS: tamsulosin 0.4mg capsule PO SCH (20:54)
[2018-03-01 22:00] VITALS: BP 85/44
[2018-03-01 23:25] VITALS: BP 85/44
[2018-03-02] MEDS: morphine/NS 5 mg/ml CADD 50 ML IV SCH ×12 (00:52→23:00)
[2018-03-02] MEDS: ipratropium/albuterol 3ml nebule NEB SCH ×4 (03:00→21:00)
[2018-03-02] MEDS: BUDESONIDE 0.25 MG/2 ML AMPUL.NEB IH SCH ×2 (08:00→21:09)
[2018-03-02] MEDS: albuterol 2.5 MG/3 ML nebule NEB SCH ×4 (08:17→21:09)
[2018-03-02] MEDS: furosemide 10 MG/1 ML 10ml inj IV SCH ×2 (08:46→20:00)
[2018-03-02] MEDS: oxybutynin 5mg tablet PO SCH ×3 (08:46→21:59)
[2018-03-02] MEDS: gabapentin 100mg capsule PO SCH ×3 (08:46→21:00)
[2018-03-02] MEDS: Febuxostat (Uloric) 40MG TAB PO SCH (08:46)
[2018-03-02 10:00] VITALS: BP 86/42
[2018-03-02] MEDS ORDERED: sennosides/docusate sodium tablet PO ONE (10:01)
[2018-03-02] MEDS ORDERED: docusate sod 100mg capsule PO ONE (10:05)
[2018-03-02] MEDS: sennosides/docusate sodium tablet PO SCH (21:00)
[2018-03-02] MEDS: gabapentin 300mg capsule PO SCH (21:59)
[2018-03-02] MEDS: docusate sod 100mg capsule PO SCH (21:59)
[2018-03-02] MEDS: sennosides 8.6mg tablet PO SCH (21:59)
[2018-03-02] MEDS: tamsulosin 0.4mg capsule PO SCH (21:59)
[2018-03-03] MEDS: morphine/NS 5 mg/ml CADD 50 ML IV SCH ×12 (01:19→23:00)
[2018-03-03] MEDS: CADD PCA waste documentation MC PRN (01:19)
[2018-03-03] MEDS: ipratropium/albuterol 3ml nebule NEB SCH ×4 (02:59→20:34)
[2018-03-03 05:00] VITALS: BP 85/35
[2018-03-03] MEDS: albuterol 2.5 MG/3 ML nebule NEB SCH (07:00)
[2018-03-03] MEDS: BUDESONIDE 0.25 MG/2 ML AMPUL.NEB IH SCH ×2 (07:48→20:34)
[2018-03-03] MEDS: oxybutynin 5mg tablet PO SCH ×3 (09:24→20:02)
[2018-03-03] MEDS: gabapentin 100mg capsule PO SCH ×3 (09:24→20:02)
[2018-03-03] MEDS: furosemide 10 MG/1 ML 10ml inj IV SCH ×2 (09:24→20:03)
[2018-03-03] MEDS: docusate sod 100mg capsule PO SCH ×2 (09:24→20:02)
[2018-03-03] MEDS: Febuxostat (Uloric) 40MG TAB PO SCH (09:25)
[2018-03-03] MEDS: ondansetron/PF 4mg/2ml inj IV PRN (18:23)
[2018-03-03] MEDS: sennosides 8.6mg tablet PO SCH (20:02)
[2018-03-03] MEDS: tamsulosin 0.4mg capsule PO SCH (20:02)
[2018-03-03] MEDS: gabapentin 300mg capsule PO SCH (20:02)
[2018-03-03] MEDS: sennosides/docusate sodium tablet PO SCH (20:02)
[2018-03-03 20:03] VITALS: BP 96/58
[2018-03-04] MEDS: morphine/NS 5 mg/ml CADD 50 ML IV SCH ×12 (01:00→23:00)
[2018-03-04] MEDS: ipratropium/albuterol 3ml nebule NEB SCH ×4 (02:52→20:03)
[2018-03-04 07:03] VITALS: BP 87/49
[2018-03-04] MEDS: BUDESONIDE 0.25 MG/2 ML AMPUL.NEB IH SCH ×2 (08:00→20:03)
[2018-03-04] MEDS: Febuxostat (Uloric) 40MG TAB PO SCH (08:04)
[2018-03-04] MEDS: docusate sod 100mg capsule PO SCH ×2 (08:04→19:39)
[2018-03-04] MEDS: gabapentin 100mg capsule PO SCH ×3 (08:04→19:39)
[2018-03-04] MEDS: oxybutynin 5mg tablet PO SCH ×3 (08:04→19:39)
[2018-03-04] MEDS: furosemide 10 MG/1 ML 10ml inj IV SCH ×2 (08:04→19:39)
[2018-03-04] MEDS: ondansetron/PF 4mg/2ml inj IV PRN ×2 (12:13→19:39)
[2018-03-04] MEDS: CADD PCA waste documentation MC PRN (13:52)
[2018-03-04 19:37] VITALS: BP 87/49
[2018-03-04] MEDS: sennosides 8.6mg tablet PO SCH (19:39)
[2018-03-04] MEDS: sennosides/docusate sodium tablet PO SCH (19:39)
[2018-03-04] MEDS: tamsulosin 0.4mg capsule PO SCH (19:39)
[2018-03-04] MEDS: gabapentin 300mg capsule PO SCH (19:40)
[2018-03-05] MEDS: morphine/NS 5 mg/ml CADD 50 ML IV SCH ×11 (01:00→23:00)
[2018-03-05] MEDS: ipratropium/albuterol 3ml nebule NEB SCH ×4 (02:20→20:45)
[2018-03-05 06:00] VITALS: BP 77/36
[2018-03-05] MEDS: BUDESONIDE 0.25 MG/2 ML AMPUL.NEB IH SCH ×2 (08:31→20:44)
[2018-03-05] MEDS: Febuxostat (Uloric) 40MG TAB PO SCH (09:05)
[2018-03-05] MEDS: oxybutynin 5mg tablet PO SCH ×3 (09:05→21:12)
[2018-03-05] MEDS: docusate sod 100mg capsule PO SCH ×2 (09:05→21:12)
[2018-03-05] MEDS: gabapentin 100mg capsule PO SCH ×3 (09:05→21:12)
[2018-03-05] MEDS: furosemide 10 MG/1 ML 10ml inj IV SCH ×2 (09:06→21:12)
[2018-03-05] MEDS ORDERED: cloNIDine hcl/PF 100mcg/ml inj ONE (09:39)
[2018-03-05] MEDS ORDERED: tetracaine 1% (10mg/ml) pres. free inj. ONE (09:40)
[2018-03-05 10:00] VITALS: BP 91/42
[2018-03-05] MEDS: tamsulosin 0.4mg capsule PO SCH (21:12)
[2018-03-05] MEDS: gabapentin 300mg capsule PO SCH (21:12)
[2018-03-05] MEDS: sennosides/docusate sodium tablet PO SCH (21:13)
[2018-03-05] MEDS: sennosides 8.6mg tablet PO SCH (21:13)
[2018-03-05 22:00] VITALS: BP 85/48
[2018-03-06] MEDS: morphine/NS 5 mg/ml CADD 50 ML IV SCH ×12 (01:00→23:00)
[2018-03-06] MEDS: ipratropium/albuterol 3ml nebule NEB SCH ×4 (02:43→20:02)
[2018-03-06] MEDS: oxybutynin 5mg tablet PO SCH ×3 (08:13→20:51)
[2018-03-06] MEDS: gabapentin 100mg capsule PO SCH ×3 (08:13→20:51)
[2018-03-06] MEDS: docusate sod 100mg capsule PO SCH ×2 (08:13→20:52)
[2018-03-06] MEDS: Febuxostat (Uloric) 40MG TAB PO SCH (08:13)
[2018-03-06] MEDS: furosemide 10 MG/1 ML 10ml inj IV SCH ×2 (08:14→20:51)
[2018-03-06 10:00] VITALS: BP 93/48
[2018-03-06] MEDS: BUDESONIDE 0.25 MG/2 ML AMPUL.NEB IH SCH ×2 (10:25→20:02)
[2018-03-06] MEDS: tamsulosin 0.4mg capsule PO SCH (20:51)
[2018-03-06] MEDS: gabapentin 300mg capsule PO SCH (20:52)
[2018-03-06] MEDS: sennosides/docusate sodium tablet PO SCH (20:52)
[2018-03-06] MEDS: sennosides 8.6mg tablet PO SCH (20:52)
[2018-03-06 22:00] VITALS: BP 91/52
[2018-03-07] MEDS: CADD PCA waste documentation MC PRN (00:31)
[2018-03-07] MEDS: morphine/NS 5 mg/ml CADD 50 ML IV SCH ×12 (00:38→23:00)
[2018-03-07] MEDS: ipratropium/albuterol 3ml nebule NEB SCH ×4 (02:38→20:22)
[2018-03-07] MEDS: BUDESONIDE 0.25 MG/2 ML AMPUL.NEB IH SCH ×2 (09:12→20:22)
[2018-03-07] MEDS: furosemide 10 MG/1 ML 10ml inj IV SCH ×2 (09:39→21:05)
[2018-03-07] MEDS: gabapentin 100mg capsule PO SCH ×3 (09:40→21:06)
[2018-03-07] MEDS: oxybutynin 5mg tablet PO SCH ×3 (09:40→21:07)
[2018-03-07] MEDS: docusate sod 100mg capsule PO SCH ×2 (09:40→21:06)
[2018-03-07] MEDS: Febuxostat (Uloric) 40MG TAB PO SCH (09:40)
[2018-03-07 10:00] VITALS: BP 87/49
[2018-03-07] MEDS ORDERED: methylnaltrexone br 12mg/0.6ml inj***SubQ only SQ ONE (14:50)
[2018-03-07] MEDS: gabapentin 300mg capsule PO SCH (21:06)
[2018-03-07] MEDS: tamsulosin 0.4mg capsule PO SCH (21:06)
[2018-03-07] MEDS: sennosides/docusate sodium tablet PO SCH (21:06)
[2018-03-07] MEDS: sennosides 8.6mg tablet PO SCH (21:06)
[2018-03-07] MEDS: nystatin 15 GM powder TP SCH (21:07)
[2018-03-07 22:00] VITALS: BP 98/51
[2018-03-08] MEDS: lactulose 20gm/30ml cup PO PRN ×2 (00:15→17:09)
[2018-03-08] MEDS: morphine/NS 5 mg/ml CADD 50 ML IV SCH ×12 (01:00→23:00)
[2018-03-08] MEDS: ipratropium/albuterol 3ml nebule NEB SCH ×4 (02:45→21:07)
[2018-03-08] MEDS: CADD PCA waste documentation MC PRN (03:53)
[2018-03-08] MEDS: metoclopramide 5 mg/ml inj IV PRN ×2 (05:16→18:53)
[2018-03-08] MEDS: BUDESONIDE 0.25 MG/2 ML AMPUL.NEB IH SCH ×2 (08:24→21:07)
[2018-03-08] MEDS: docusate sod 100mg capsule PO SCH ×2 (09:56→21:46)
[2018-03-08] MEDS: gabapentin 100mg capsule PO SCH ×3 (09:56→21:45)
[2018-03-08] MEDS: oxybutynin 5mg tablet PO SCH ×3 (09:56→21:48)
[2018-03-08 10:00] VITALS: BP 88/53
[2018-03-08] MEDS: furosemide 10 MG/1 ML 10ml inj IV SCH ×2 (10:03→21:47)
[2018-03-08] MEDS: nystatin 15 GM powder TP SCH ×3 (10:05→21:48)
[2018-03-08] MEDS: Febuxostat (Uloric) 40MG TAB PO SCH (10:05)
[2018-03-08] MEDS: gabapentin 300mg capsule PO SCH (21:45)
[2018-03-08] MEDS: sennosides/docusate sodium tablet PO SCH (21:46)
[2018-03-08] MEDS: sennosides 8.6mg tablet PO SCH (21:46)
[2018-03-08] MEDS: tamsulosin 0.4mg capsule PO SCH (21:48)
[2018-03-08 22:00] VITALS: BP 101/55
[2018-03-09] MEDS: morphine/NS 5 mg/ml CADD 50 ML IV SCH ×12 (01:00→23:00)
[2018-03-09] MEDS: lactulose 20gm/30ml cup PO PRN ×3 (02:15→20:52)
[2018-03-09] MEDS: ipratropium/albuterol 3ml nebule NEB SCH ×4 (02:54→20:13)
[2018-03-09] MEDS: metoclopramide 5 mg/ml inj IV PRN ×2 (06:56→17:48)
[2018-03-09] MEDS: BUDESONIDE 0.25 MG/2 ML AMPUL.NEB IH SCH ×2 (08:00→20:13)
[2018-03-09] MEDS: docusate sod 100mg capsule PO SCH ×2 (08:08→20:44)
[2018-03-09] MEDS: furosemide 10 MG/1 ML 10ml inj IV SCH ×2 (08:10→20:43)
[2018-03-09] MEDS: gabapentin 100mg capsule PO SCH ×3 (08:10→20:43)
[2018-03-09] MEDS: Febuxostat (Uloric) 40MG TAB PO SCH (08:10)
[2018-03-09] MEDS: oxybutynin 5mg tablet PO SCH ×3 (08:10→20:43)
[2018-03-09] MEDS: nystatin 15 GM powder TP SCH ×3 (08:11→20:45)
[2018-03-09] MEDS: ondansetron/PF 4mg/2ml inj IV PRN (08:57)
[2018-03-09 10:00] VITALS: BP 89/60
[2018-03-09] MEDS ORDERED: mineral oil 133ml enema RC ONE (10:55)
[2018-03-09] MEDS: tamsulosin 0.4mg capsule PO SCH (20:43)
[2018-03-09] MEDS: sennosides 8.6mg tablet PO SCH (20:44)
[2018-03-09] MEDS: sennosides/docusate sodium tablet PO SCH (20:44)
[2018-03-09] MEDS: gabapentin 300mg capsule PO SCH (20:44)
[2018-03-09 22:05] VITALS: BP 95/52
[2018-03-09] MEDS: simethicone 125mg capsule PO PRN (23:07)
[2018-03-10] MEDS: morphine/NS 5 mg/ml CADD 50 ML IV SCH ×9 (01:00→23:00)
[2018-03-10] MEDS: metoclopramide 5 mg/ml inj IV PRN ×3 (01:45→13:15)
[2018-03-10] MEDS: ipratropium/albuterol 3ml nebule NEB SCH ×4 (02:09→20:25)
[2018-03-10] MEDS: gabapentin 100mg capsule PO SCH ×3 (08:10→20:57)
[2018-03-10] MEDS: nystatin 15 GM powder TP SCH ×3 (08:10→21:00)
[2018-03-10] MEDS: oxybutynin 5mg tablet PO SCH ×3 (08:10→20:57)
[2018-03-10] MEDS: docusate sod 100mg capsule PO SCH ×2 (08:10→20:57)
[2018-03-10] MEDS: BUDESONIDE 0.25 MG/2 ML AMPUL.NEB IH SCH ×2 (08:11→20:25)
[2018-03-10] MEDS: furosemide 10 MG/1 ML 10ml inj IV SCH ×2 (08:11→20:58)
[2018-03-10] MEDS: Febuxostat (Uloric) 40MG TAB PO SCH (08:46)
[2018-03-10 10:00] VITALS: BP 89/51
[2018-03-10] MEDS: lactulose 20gm/30ml cup PO PRN (13:18)
[2018-03-10] MEDS: ondansetron/PF 4mg/2ml inj IV PRN (17:11)
[2018-03-10] MEDS: tamsulosin 0.4mg capsule PO SCH (20:57)
[2018-03-10] MEDS: gabapentin 300mg capsule PO SCH (20:57)
[2018-03-10] MEDS: sennosides/docusate sodium tablet PO SCH (20:57)
[2018-03-10] MEDS: simethicone 125mg capsule PO PRN (20:57)
[2018-03-10] MEDS: sennosides 8.6mg tablet PO SCH (20:57)
[2018-03-10 22:00] VITALS: BP 109/56
[2018-03-11] MEDS: morphine/NS 5 mg/ml CADD 50 ML IV SCH ×5 (01:00→09:00)
[2018-03-11] MEDS: ipratropium/albuterol 3ml nebule NEB SCH ×4 (02:21→21:02)
[2018-03-11] MEDS: ondansetron/PF 4mg/2ml inj IV PRN ×3 (05:08→18:56)
[2018-03-11] MEDS: lactulose 20gm/30ml cup PO PRN ×2 (05:54→16:03)
[2018-03-11] MEDS: metoclopramide 5 mg/ml inj IV PRN ×3 (07:39→21:11)
[2018-03-11] MEDS: oxybutynin 5mg tablet PO SCH ×3 (07:40→20:49)
[2018-03-11] MEDS: docusate sod 100mg capsule PO SCH ×2 (07:40→20:49)
[2018-03-11] MEDS: Febuxostat (Uloric) 40MG TAB PO SCH (07:40)
[2018-03-11] MEDS: gabapentin 100mg capsule PO SCH ×3 (07:40→20:49)
[2018-03-11] MEDS: furosemide 10 MG/1 ML 10ml inj IV SCH ×2 (07:40→20:55)
[2018-03-11] MEDS: nystatin 15 GM powder TP SCH ×3 (08:00→20:39)
[2018-03-11] MEDS: BUDESONIDE 0.25 MG/2 ML AMPUL.NEB IH SCH ×2 (09:13→21:02)
[2018-03-11 10:00] VITALS: BP 91/50
[2018-03-11] MEDS: simethicone 125mg capsule PO PRN (10:15)
[2018-03-11] MEDS: morphine ER 15mg tablet PO SCH ×2 (11:34→20:49)
[2018-03-11] MEDS ORDERED: CADD PCA waste documentation MC PRN (11:55)
[2018-03-11 18:00] VITALS: BP 108/54
[2018-03-11] MEDS: gabapentin 300mg capsule PO SCH (20:49)
[2018-03-11] MEDS: tamsulosin 0.4mg capsule PO SCH (20:49)
[2018-03-11] MEDS: sennosides/docusate sodium tablet PO SCH (20:50)
[2018-03-11] MEDS: sennosides 8.6mg tablet PO SCH (20:50)
[2018-03-11 22:00] VITALS: BP 103/46
[2018-03-12] MEDS ORDERED: mineral oil 133ml enema RC PRN (01:50)
[2018-03-12] MEDS: ipratropium/albuterol 3ml nebule NEB SCH ×2 (02:00→09:05)
[2018-03-12] MEDS: acetaminophen 325mg tablet PO PRN ×2 (05:29→11:41)
[2018-03-12 06:00] VITALS: BP 96/62
[2018-03-12 07:06] LABS: BASOPHILS % (AUTO) 0.3 % (0-1); EOSINOPHILS # (AUTO) 0.1 X10'3 (0-0.9); EOSINOPHILS % (AUTO) 2.3 % (0-6); HEMATOCRIT 24.8 % (42.0-52.0); HEMOGLOBIN 8.2 g/dl (14.0-17.9); LYMPHOCYTES # (AUTO) 0.8 X10'3 (1.1-4.8); LYMPHOCYTES % (AUTO) 18.4 % (21-51); MEAN CORPUSCULAR HEMOGLOBIN 30.8 PG (27.0-31.0); MEAN CORPUSCULAR HGB CONC 32.9 % (33.0-36.5); MEAN CORPUSCULAR VOLUME 93.6 FL (78-98); MEAN PLATELET VOLUME 8.9 FL (7.4-10.4); MONOCYTES # (AUTO) 0.3 X10'3 (0-0.9); MONOCYTES % (AUTO) 6.3 % (2-12); NEUTROPHILS % (AUTO) 72.7 % (42-75); PLATELET COUNT 152 X10'3 (140-440); RED BLOOD COUNT 2.65 X10'6 (4.70-6.10); RED CELL DISTRIBUTION WIDTH 14.1 % (11.5-14.5); WHITE BLOOD COUNT 4.2 X10'3 (4.5-11.0)
[2018-03-12 07:29] LABS: ALBUMIN 2.3 G/DL (3.4-5.0); ANION GAP 6 (8-16); BLOOD UREA NITROGEN 29 MG/DL (7-18); BUN/CREATININE RATIO 17.6 (5.4-32.0); CALCIUM 8.8 MG/DL (8.5-10.1); CHLORIDE 93 MMOL/L (99-107); CREATININE 1.65 MG/DL (0.60-1.10); GLUCOSE 102 MG/DL (70-104); SODIUM 131 MMOL/L (135-145); eGFR 40 ML/MIN
[2018-03-12] MEDS: furosemide 10 MG/1 ML 10ml inj IV SCH (08:05)
[2018-03-12] MEDS: Febuxostat (Uloric) 40MG TAB PO SCH (08:06)
[2018-03-12] MEDS: oxybutynin 5mg tablet PO SCH ×2 (08:06→13:20)
[2018-03-12] MEDS: morphine ER 15mg tablet PO SCH (08:06)
[2018-03-12] MEDS: docusate sod 100mg capsule PO SCH (08:06)
[2018-03-12] MEDS: gabapentin 100mg capsule PO SCH ×2 (08:06→13:21)
[2018-03-12] MEDS: nystatin 15 GM powder TP SCH ×2 (08:23→13:21)
[2018-03-12] MEDS: metoclopramide 5 mg/ml inj IV PRN (08:25)
[2018-03-12] MEDS: BUDESONIDE 0.25 MG/2 ML AMPUL.NEB IH SCH (09:05)
[2018-03-12 10:00] VITALS: BP 96/45
[2018-03-12] MEDS ORDERED: dextrose 50%-water 50ml dispensing syringe IV PRN ×2 (12:10)
[2018-03-12] MEDS ORDERED: glucagon, human recombinant 1mg kit SUBCUT PRN (12:10)
[2018-03-12] MEDS ORDERED: dextrose ORAL solution 15 GM/59 ML bottle PO PRN ×2 (12:10)
[2018-03-12] MEDS ORDERED: MESSAGE TO PHARMACY PO ONE (12:10)
[2018-03-12] MEDS ORDERED: insulin Lispro (HumaLOG) vial - multi-dose SQ SCH (12:10)
[2018-03-12] MEDS: ondansetron/PF 4mg/2ml inj IV PRN (12:57)
[2018-03-12] MEDS ORDERED: MORP15TA PO (12:59)
[2018-03-12] MEDS ORDERED: insulin glargine (Lantus) pen - multi-dose SQ SCH (21:00)
== END 2018-03-12 17:20 | disposition home health service (06) | DRG 682 ==
LOC: ER 17:51 → ED HOLD 22:56 → EDBEDREQDT 02-24 12:53 → EDBEDREQTM 02-24 12:53 → ICU 2S 02-24 16:08 → ORTHO 4S 02-27 21:20
PROVIDERS: ADMIT Family Medicine; ATTEND Family Medicine
DX: N17.0 Acute kidney failure with tubular necrosis (principal); I50.23 Acute on chronic systolic (congestive) heart failure; E87.1 Hypo-osmolality and hyponatremia; I42.9 Cardiomyopathy, unspecified; N18.4 Chronic kidney disease, stage 4 (severe); I50.84 End stage heart failure; E66.01 Morbid (severe) obesity due to excess calories; D64.9 Anemia, unspecified; D69.6 Thrombocytopenia, unspecified; E03.9 Hypothyroidism, unspecified; E88.09 Other disorders of plasma-protein metabolism, not elsewhere classified; G89.4 Chronic pain syndrome; I25.10 Atherosclerotic heart disease of native coronary artery without angina pectoris; I34.0 Nonrheumatic mitral (valve) insufficiency; I48.2 Chronic atrial fibrillation; I95.89 Other hypotension; I70.0 Atherosclerosis of aorta; M10.9 Gout, unspecified; M19.90 Unspecified osteoarthritis, unspecified site; M54.9 Dorsalgia, unspecified; I89.0 Lymphedema, not elsewhere classified; J44.9 Chronic obstructive pulmonary disease, unspecified; K59.00 Constipation, unspecified; N40.0 Benign prostatic hyperplasia without lower urinary tract symptoms; Z51.5 Encounter for palliative care; Z66 Do not resuscitate; I25.2 Old myocardial infarction; Z90.49 Acquired absence of other specified parts of digestive tract; Z95.810 Presence of automatic (implantable) cardiac defibrillator; Z88.1 Allergy status to other antibiotic agents; Z88.5 Allergy status to narcotic agent; Z88.0 Allergy status to penicillin; Z88.8 Allergy status to other drugs, medicaments and biological substances; Z91.018 Allergy to other foods; Z79.899 Other long term (current) drug therapy; Z86.718 Personal history of other venous thrombosis and embolism; Z87.440 Personal history of urinary (tract) infections; Z87.891 Personal history of nicotine dependence; Z68.39 Body mass index [BMI] 39.0-39.9, adult
CPT/HCPCS: 36415; 71045; 80048; 80053; 82948; 83036; 83735; 83880; 83930; 84100; 84439; 84443; 84480; 84484; 85025; 85610; 85730; 87070; 93005; 94640; 94760; 96374; 97110; 97163; 97530; 99285; G0378; J0735; J1250; J1265; J1815; J1940; J2270; J2405; J2765; J8597; P9047; Q0163

== ENCOUNTER 2018-04-11 15:35 | Inpatient (IN) | payer MEDICARE, MEDICAID, OTHER | END 2018-04-17 23:50 | disposition home or self-care (01) | LOC: PCU 3S 04-12 00:45 → ER 15:35 → ED HOLD 22:18 | DX: N04.9 Nephrotic syndrome with unspecified morphologic changes (principal); I50.23 Acute on chronic systolic (congestive) heart failure; E87.1 Hypo-osmolality and hyponatremia; N39.0 Urinary tract infection, site not specified; N17.9 Acute kidney failure, unspecified; N18.4 Chronic kidney disease, stage 4 (severe); Z95.810 Presence of automatic (implantable) cardiac defibrillator ==

== ENCOUNTER 2018-05-07 17:43 | Inpatient (IN) | payer MEDICARE, MEDICAID, OTHER ==
[~2018-05-07] VITALS: Ht 180.3 cm; Wt 126.0 kg
[~2018-05-07 17:43] MED LIST changes: +ASCO-134 PO; -ASCO500C15 PO; -BUME1TAB4 PO; +CALC-1197 PO; -CHOL50004 PO; +DICL100G15 TOP; -DOBU500I5 IV; +DULR RC; +ESOM40CA PO; -FOLI1TAB16 PO; -GABA-532 PO; +HONE15GE TP; +LACT10SO PO; +LIDO700A32 TOP; +LIDOCAINE 4% TOP; +LISI2.5T2 PO; +METO-292 PO; +METO-384 PO; -METO-539 PO; -METO10TA3 PO; +MICO15CR4 TOP; +MOME17SP BOTHNARES; +MORP-64 PO; -MORP15TA PO; +MYC15CR TOP; -MYCOL30CR TP; -MYL80T PO; +NA P230E RC; -OSC500T PO; -PANT40TA4 PO; +PHEN51CR RC; +POTA20TA10 PO; +SENN-202 PO; +[UNRECOGNIZED DRUG - CODE] IV
[2018-05-07 18:55] LABS: ALANINE AMINOTRANSFERASE 8 U/L (12-78); ALBUMIN 2.5 G/DL (3.4-5.0); ALBUMIN/GLOBULIN RATIO 0.5 (1.1-1.5); ALKALINE PHOSPHATASE 72 IU/L (46-116); ANION GAP 8 (8-16); ASPARTATE AMINO TRANSFERASE 16 U/L (10-37); BILIRUBIN,TOTAL 0.3 MG/DL (0.1-1.0); BLOOD UREA NITROGEN 51 MG/DL (7-18); BUN/CREATININE RATIO 25.2 (5.4-32.0); CALCIUM 8.9 MG/DL (8.5-10.1); CHLORIDE 94 MMOL/L (99-107); CREATININE 2.02 MG/DL (0.60-1.10); GLUCOSE 81 MG/DL (70-104); POTASSIUM 3.9 MMOL/L (3.5-5.1); SODIUM 131 MMOL/L (135-145); TOTAL CARBON DIOXIDE 28.6 MMOL/L (24-32); TOTAL PROTEIN 7.8 G/DL (6.4-8.2); eGFR 32 ML/MIN
[2018-05-07 18:58] LABS: BASOPHILS % (AUTO) 1.1 % (0-1); EOSINOPHILS # (AUTO) 0.1 X10'3 (0-0.9); EOSINOPHILS % (AUTO) 3.4 % (0-6); HEMATOCRIT 29.2 % (42.0-52.0); HEMOGLOBIN 9.7 g/dl (14.0-17.9); LYMPHOCYTES # (AUTO) 0.7 X10'3 (1.1-4.8); LYMPHOCYTES % (AUTO) 20.5 % (21-51); MEAN CORPUSCULAR HEMOGLOBIN 30.2 PG (27.0-31.0); MEAN CORPUSCULAR HGB CONC 33.4 g/dL (33.0-36.5); MEAN CORPUSCULAR VOLUME 90.5 FL (78-98); MEAN PLATELET VOLUME 9.5 FL (7.4-10.4); MONOCYTES # (AUTO) 0.3 X10'3 (0-0.9); NEUTROPHILS # (AUTO) 2.2 X10'3 (1.8-7.7); PLATELET COUNT 136 X10'3 (140-440); RED BLOOD COUNT 3.22 X10'6 (4.70-6.10); RED CELL DISTRIBUTION WIDTH 15.5 % (11.5-14.5); WHITE BLOOD COUNT 3.2 X10'3 (4.5-11.0)
[2018-05-07 19:03] LABS: PARTIAL THROMBOPLASTIN TIME 33 SECONDS (22-32); PROTHROMBIN TIME 10.3 SECONDS (9.0-12.0)
[2018-05-07] MEDS ORDERED: furosemide 10 MG/1 ML 10ml inj IV ONE (19:30)
[2018-05-07] MEDS: furosemide 10 MG/1 ML 10ml inj IV SCH (20:05)
[2018-05-07] MEDS ORDERED: ondansetron/PF 4mg/2ml inj IV PRN (20:05)
[2018-05-07] MEDS ORDERED: mag hydrox/Alum hydrox/simeth 30ml oral suspension PO PRN (20:05)
[2018-05-07] MEDS ORDERED: morphine 4 MG/ML inj SYRINge IV PRN (20:05)
[2018-05-07] MEDS ORDERED: HYDROcodone/acetaminophen 5mg/325mg tablet PO PRN (20:05)
[2018-05-07] MEDS ORDERED: acetaminophen 325mg tablet PO PRN (20:05)
[2018-05-07] MEDS ORDERED: magnesium hydroxide 30ml (MOM) UD suspension PO PRN (20:05)
--- NOTE | 2018-05-07 20:21 | NUR ---
PATIENT REFUSED TO TURN AT THIS TIME.
--- NOTE | 2018-05-07 20:25 | NUR ---
CALL TO DR NEGRON AT THIS TIME, PER MD PM DOSE OF LASIX (SEE EMAR) TO BE HELD DUE TO PREVIOUS DOSE GIVEN TODAY (SEE EMAR).
[2018-05-07] MEDS ORDERED: levoFLOXACIN-Levaquin 250mg/D5 50 ML IV SCH (22:25)
--- NOTE | 2018-05-08 | NUR ---
Malcolm montero in [facility] - 05/08/18 at 0405 by TANYA PATIENT PLACED ON A HOSPITAL BED
--- NOTE | 2018-05-08 01:24 | NUR ---
PATIENT PUT ON A HOSPITAL BED
[2018-05-08] MEDS ORDERED: THY60T PO (02:17)
[2018-05-08] MEDS ORDERED: LIDO700A32 TOP (02:17)
[2018-05-08] MEDS ORDERED: FLO0.4C PO (02:17)
[2018-05-08] MEDS ORDERED: CYAN-19 PO (02:17)
[2018-05-08] MEDS ORDERED: MICO1KIT6 TOP (02:17)
[2018-05-08] MEDS ORDERED: LACT1CAP65 PO (02:17)
[2018-05-08] MEDS ORDERED: HONE15GE TOP (02:17)
[2018-05-08] MEDS ORDERED: LACT10SO PO (02:17)
[2018-05-08] MEDS ORDERED: FEBU40TA PO (02:17)
[2018-05-08] MEDS ORDERED: OXYB5TAB11 PO (02:17)
[2018-05-08] MEDS ORDERED: FURO80TA87 PO (02:17)
[2018-05-08] MEDS ORDERED: METO-292 PO (02:17)
[2018-05-08] MEDS ORDERED: POTA20TA10 PO (02:17)
[2018-05-08] MEDS ORDERED: CANN100S PO (02:17)
[2018-05-08] MEDS ORDERED: METO50TA7 PO (02:17)
[2018-05-08] MEDS ORDERED: FOLI1TAB16 PO (02:17)
[2018-05-08] MEDS ORDERED: LIDO30CR23 TOP (02:17)
[2018-05-08] MEDS ORDERED: DULR RC (02:17)
[2018-05-08] MEDS ORDERED: OSC500T PO (02:17)
[2018-05-08] MEDS ORDERED: ONDA8TAB6 PO (02:17)
[2018-05-08] MEDS ORDERED: WITC1MED28 TOP (02:17)
[2018-05-08] MEDS ORDERED: LISI2.5T2 PO (02:17)
[2018-05-08] MEDS ORDERED: ESOM40CA PO (02:17)
[2018-05-08] MEDS ORDERED: NA P133E4 RC (02:17)
[2018-05-08] MEDS ORDERED: MORP10SY PO (02:17)
[2018-05-08] MEDS ORDERED: NYSPWD TP (02:17)
[2018-05-08] MEDS ORDERED: VITC500T PO (02:17)
[2018-05-08] MEDS ORDERED: FLUT1AER INH (02:17)
[2018-05-08] MEDS ORDERED: METO-384 PO (02:17)
[2018-05-08] MEDS ORDERED: DICL100G15 TOP (02:17)
[2018-05-08] MEDS ORDERED: PANT40TA4 PO (02:17)
[2018-05-08] MEDS ORDERED: GABA-530 PO (02:17)
[2018-05-08] MEDS ORDERED: ASPI-1265 PO (02:17)
[2018-05-08] MEDS ORDERED: GABA-532 PO (02:17)
[2018-05-08] MEDS ORDERED: MAGN70TA2 PO (02:17)
[2018-05-08] MEDS ORDERED: MYL80T PO (02:17)
[2018-05-08] MEDS ORDERED: ALBU8HFA PO (02:17)
[2018-05-08] MEDS ORDERED: SENN8.6T8 PO (02:17)
[2018-05-08] MEDS: morphine 4 MG/ML inj SYRINge IV PRN ×2 (02:24→11:05)
--- NOTE | 2018-05-08 03:29 | NUR ---
PICTURES TAKEN AND IN CHART OF PATIENTS RIGHT BUTTOCK AND LEFT UPPER POSTERIOR LOWER EXTREMITY, OPTI FOAM APPLIED INITIALED
--- NOTE | 2018-05-08 06:30 | NUR ---
Patient in room PCU 3009. I have received report from Soumya MARMOLEJO and had the opportunity to ask questions and assume patient care.
--- NOTE | 2018-05-08 07:00 | NUR ---
pt arrived to PCU from ED.
[2018-05-08 07:52] LABS: BASOPHILS % (AUTO) 1.2 % (0-1); EOSINOPHILS # (AUTO) 0.1 X10'3 (0-0.9); EOSINOPHILS % (AUTO) 3.1 % (0-6); HEMATOCRIT 27.6 % (42.0-52.0); HEMOGLOBIN 9.2 g/dl (14.0-17.9); LYMPHOCYTES # (AUTO) 0.7 X10'3 (1.1-4.8); LYMPHOCYTES % (AUTO) 29.6 % (21-51); MEAN CORPUSCULAR HEMOGLOBIN 30.1 PG (27.0-31.0); MEAN CORPUSCULAR HGB CONC 33.3 g/dL (33.0-36.5); MEAN CORPUSCULAR VOLUME 90.4 FL (78-98); MEAN PLATELET VOLUME 9.2 FL (7.4-10.4); MONOCYTES # (AUTO) 0.2 X10'3 (0-0.9); MONOCYTES % (AUTO) 9.6 % (2-12); NEUTROPHILS # (AUTO) 1.3 X10'3 (1.8-7.7); NEUTROPHILS % (AUTO) 56.5 % (42-75); PLATELET COUNT 119 X10'3 (140-440); RED BLOOD COUNT 3.05 X10'6 (4.70-6.10); RED CELL DISTRIBUTION WIDTH 15.4 % (11.5-14.5); WHITE BLOOD COUNT 2.3 X10'3 (4.5-11.0)
[2018-05-08] MEDS: furosemide 10 MG/1 ML 10ml inj IV SCH (07:54)
[2018-05-08 08:08] LABS: ALBUMIN 2.2 G/DL (3.4-5.0); ANION GAP 7 (8-16); BLOOD UREA NITROGEN 51 MG/DL (7-18); CALCIUM 8.9 MG/DL (8.5-10.1); CHLORIDE 96 MMOL/L (99-107); CREATININE 1.89 MG/DL (0.60-1.10); GLUCOSE 80 MG/DL (70-104); POTASSIUM 3.9 MMOL/L (3.5-5.1); SODIUM 133 MMOL/L (135-145); TOTAL CARBON DIOXIDE 30.4 MMOL/L (24-32); eGFR 34 ML/MIN
[2018-05-08 09:28] LABS: PLATELET ESTIMATE DECREASED; TOTAL CELLS COUNTED 100
[2018-05-08] MEDS ORDERED: LEVO250T58 PO (10:55)
[2018-05-08 11:00] VITALS: BP 104/55
[2018-05-08] MEDS ORDERED: levoFLOXACIN 250mg tablet PO SCH (11:00)
--- NOTE | 2018-05-08 11:29 | NUR ---
Pt has an indwelling catheter.
--- NOTE | 2018-05-08 15:00 | NUR ---
Patient Discharged. Patient discharged home via private vehicle accompanied by . Patient left via power wheel chair that he operates himself. IV removed prior to discharge. IV catheter intact. IV site dressed with gauze and clear tape. New prescriptions provided to patient via Ernesto's bedside delivery. New medications and discharge instructions discussed with patient via RN. RN accompanied patient out of building. All questions and concerns answered. Patient's tele box returned to [employer].
[2018-05-08] MEDS ORDERED: lactobacillus rhamnosus 10,000 MMU CELLS/CAPSULE PO SCH (20:00)
--- NOTE | 2018-05-09 15:26 | NUR ---
Patient's returned today to [facility] home medication. I picked up medication from pharmacy and gave to .
== END 2018-05-08 15:00 | disposition home health service (06) | DRG 291 ==
LOC: ER 17:44 → ED HOLD 20:05 → PCU 3S 05-08 06:44 → CMPBEDREQ 05-08 06:56 → PCU 3S 05-08 07:11
PROVIDERS: ADMIT Internal Medicine; ATTEND Internal Medicine
DX: I13.0 Hypertensive heart and chronic kidney disease with heart failure and stage 1 through stage 4 chronic kidney disease, or unspecified chronic kidney disease (principal); I50.23 Acute on chronic systolic (congestive) heart failure; J44.0 Chronic obstructive pulmonary disease with (acute) lower respiratory infection; J20.9 Acute bronchitis, unspecified; N18.3 Chronic kidney disease, stage 3 (moderate); I48.0 Paroxysmal atrial fibrillation; I25.2 Old myocardial infarction; I25.10 Atherosclerotic heart disease of native coronary artery without angina pectoris; N40.0 Benign prostatic hyperplasia without lower urinary tract symptoms; G62.9 Polyneuropathy, unspecified; G89.29 Other chronic pain; M10.9 Gout, unspecified; I35.0 Nonrheumatic aortic (valve) stenosis; I08.1 Rheumatic disorders of both mitral and tricuspid valves; M19.90 Unspecified osteoarthritis, unspecified site; E03.9 Hypothyroidism, unspecified; Z79.899 Other long term (current) drug therapy; Z88.1 Allergy status to other antibiotic agents; Z90.49 Acquired absence of other specified parts of digestive tract; Z95.810 Presence of automatic (implantable) cardiac defibrillator; Z87.440 Personal history of urinary (tract) infections; Z88.8 Allergy status to other drugs, medicaments and biological substances; Z88.0 Allergy status to penicillin; Z88.5 Allergy status to narcotic agent; Z86.718 Personal history of other venous thrombosis and embolism
CPT/HCPCS: 36415; 71045; 80048; 80053; 83605; 83880; 84484; 85025; 85610; 85730; 87040; 93005; 93306; 96374; 99285; G0378; J1940; J1956; J2270

== ENCOUNTER 2018-05-28 22:33 | Emergency (ER) | payer MEDICARE, MEDICAID, OTHER ==
[~2018-05-28] VITALS: Ht 180.3 cm; Wt 102.3 kg
[~2018-05-28 22:33] MED LIST changes: +ALBU8HFA PO; -ASCO-134 PO; +ASPI-1265 PO; -ATRIN INH; -CALC-1197 PO; +CANN100S PO; +CYAN-19 PO; -CYAN1TAB41 PO; -DICL100G15 TOP; +FEBU40TA PO; -FEBU80TA PO; -FLUT1AER; +FLUT1AER INH; +FOLI1TAB16 PO; -FURO40TA4 PO; +FURO80TA87 PO; +GABA-532 PO; +HONE15GE TOP; -HONE15GE TP; +LEVO250T58 PO; -LIDOCAINE 4% TOP; +MAGN70TA2 PO; -MICO15CR4 TOP; -MOME17SP BOTHNARES; -MORP-64 PO; +MORP10SY PO; -MYC15CR TOP; +MYL80T PO; -NA P230E RC; +OSC500T PO; -PHEN51CR RC; -SENN-202 PO; +SENN8.6T8 PO; -THY15T PO; +VITC500T PO; -[UNRECOGNIZED DRUG - CODE] IV
[2018-05-28 23:11] LABS: CLARITY,URINE CLEAR (Clear); COLOR,URINE YELLOW (Yellow); GLUCOSE, URINE NEGATIVE (Neg); KETONES,URINE NEGATIVE (Neg); LEUKOCYTE ESTERASE ,URINE SMALL (Neg); NITRITES, URINE NEGATIVE (Neg); OCCULT BLOOD,URINE NEGATIVE (Neg); PH,URINE 5.5 (4.8-8.0); PROTEIN,URINE NEGATIVE (Neg); UROBILINOGEN,URINE 0.2 E.U/dL (0.2-1.0)
[2018-05-28 23:12] LABS: BASOPHILS % (AUTO) 0.5 % (0-1); EOSINOPHILS % (AUTO) 0.9 % (0-6); HEMATOCRIT 28.1 % (42.0-52.0); HEMOGLOBIN 9.4 g/dl (14.0-17.9); LYMPHOCYTES # (AUTO) 0.5 X10'3 (1.1-4.8); MEAN CORPUSCULAR HEMOGLOBIN 30.3 PG (27.0-31.0); MEAN CORPUSCULAR HGB CONC 33.5 g/dL (33.0-36.5); MEAN CORPUSCULAR VOLUME 90.3 FL (78-98); MEAN PLATELET VOLUME 10.7 FL (7.4-10.4); MONOCYTES # (AUTO) 0.2 X10'3 (0-0.9); MONOCYTES % (AUTO) 4.1 % (2-12); NEUTROPHILS # (AUTO) 3.6 X10'3 (1.8-7.7); NEUTROPHILS % (AUTO) 83.5 % (42-75); PLATELET COUNT 73 X10'3 (140-440); RED BLOOD COUNT 3.11 X10'6 (4.70-6.10); RED CELL DISTRIBUTION WIDTH 15.9 % (11.5-14.5); WHITE BLOOD COUNT 4.4 X10'3 (4.5-11.0)
[2018-05-28 23:14] LABS: UA COLLECTION TYPE FOLEY CATH
[2018-05-28 23:20] LABS: BACTERIA,URINE 4+ /HPF (Neg); MUCUS STRANDS FEW /LPF (Neg); RBC,URINE 0-2 /HPF (0-2); SQUAMOUS EPITHELIAL CELL,UR MODERATE /LPF (FEW)
[2018-05-28 23:28] LABS: LARGE PLATELETS FEW; PLATELET ESTIMATE DECREASED
[2018-05-28 23:31] LABS: ALANINE AMINOTRANSFERASE 21 U/L (12-78); ALBUMIN 2.6 G/DL (3.4-5.0); ALBUMIN/GLOBULIN RATIO 0.5 (1.1-1.5); ALKALINE PHOSPHATASE 68 IU/L (46-116); ANION GAP 8 (8-16); ASPARTATE AMINO TRANSFERASE 21 U/L (10-37); BILIRUBIN,TOTAL 0.2 MG/DL (0.1-1.0); BLOOD UREA NITROGEN 76 MG/DL (7-18); BUN/CREATININE RATIO 29.1 (5.4-32.0); CALCIUM 8.9 MG/DL (8.5-10.1); CHLORIDE 90 MMOL/L (99-107); CREATININE 2.61 MG/DL (0.60-1.10); GLUCOSE 100 MG/DL (70-104); POTASSIUM 4.9 MMOL/L (3.5-5.1); SODIUM 123 MMOL/L (135-145); TOTAL CARBON DIOXIDE 25.5 MMOL/L (24-32); TOTAL PROTEIN 7.6 G/DL (6.4-8.2); eGFR 24 ML/MIN
[2018-05-28 23:40] LABS: MAGNESIUM 2.2 MG/DL (1.5-2.4); PHOSPHORUS 5.5 MG/DL (2.3-4.5)
[2018-05-29 02:58] VITALS: BP 150/70
[2018-05-29] MEDS ORDERED: BUME1TAB4 PO (15:13)
[2018-05-29] MEDS ORDERED: MORP-64 PO (15:13)
[2018-05-29] MEDS ORDERED: PHEN51CR RC (15:13)
[2018-05-29] MEDS ORDERED: HEPARIN FLUSH IVF (15:13)
[2018-05-29] MEDS ORDERED: NA P230E RC (15:13)
[2018-05-29] MEDS ORDERED: ONDA8TAB13 PO (15:13)
[2018-05-29] MEDS ORDERED: NYST1000 PO (15:13)
[2018-05-29] MEDS ORDERED: LIDOCAINE CREAM 4% TOP (15:13)
[2018-05-29] MEDS ORDERED: CALC-723 PO (15:13)
[2018-05-29] MEDS ORDERED: ATRIN IH (15:13)
[2018-05-29] MEDS ORDERED: PANT-47 PO (15:13)
[2018-05-29] MEDS ORDERED: GABA-530 PO (15:13)
[2018-05-29] MEDS ORDERED: DICL100G15 TOP (15:13)
[2018-05-29] MEDS ORDERED: MICO1COM TOP (15:13)
== END 2018-05-29 02:59 | disposition home or self-care (01) ==
LOC: ER 22:34
DX: N18.3 Chronic kidney disease, stage 3 (moderate) (principal); I50.9 Heart failure, unspecified; I25.10 Atherosclerotic heart disease of native coronary artery without angina pectoris; J44.9 Chronic obstructive pulmonary disease, unspecified; M19.90 Unspecified osteoarthritis, unspecified site; G89.29 Other chronic pain; Z86.718 Personal history of other venous thrombosis and embolism; Z95.0 Presence of cardiac pacemaker; Z88.1 Allergy status to other antibiotic agents; Z88.0 Allergy status to penicillin; Z88.8 Allergy status to other drugs, medicaments and biological substances; Z91.018 Allergy to other foods; Z79.82 Long term (current) use of aspirin
CPT/HCPCS: 36415; 71045; 80053; 81001; 83735; 83880; 84100; 85025; 87077; 87088; 87186; 99284

== ENCOUNTER 2018-05-29 13:29 | Inpatient (IN) | payer MEDICARE, MEDICAID, OTHER | END 2018-06-02 14:30 | disposition E | LOC: CICU 2S 05-30 01:42 → ER 13:29 → ED HOLD 16:43 | DX: I50.23 Acute on chronic systolic (congestive) heart failure (principal); E87.1 Hypo-osmolality and hyponatremia; N17.9 Acute kidney failure, unspecified; R57.9 Shock, unspecified; N18.9 Chronic kidney disease, unspecified ==